=== PATIENT | female | born 1955 | race Two or more races ===

== ENCOUNTER 2024-05-11 04:34 | Inpatient (IN) | payer MEDICARE, OTHER ==
[2024-05-11] VITALS (30 sets, daily range): BP systolic 102–165; BP diastolic 48–110; PULSE 45–109; RESP 18–21; TEMP 93.7–98.1; O2SAT 94–100
[~2024-05-11] VITALS: Ht 162.6 cm; Wt 67.1 kg
[2024-05-11] MEDS: ETOMIDATE (2MG/ML) 20ML VIAL IV ONE ×2 (05:04→05:15)
[2024-05-11] MEDS: ROCURONIUM 10MG/ML 10ML VIAL IV ONE ×2 (05:04→05:17)
[2024-05-11] MEDS: PROPOFOL 100 ML IV ONE (05:04)
[2024-05-11] MEDS: DEXTROSE 50% SYRINGE 100 ML IV ONE (05:10)
--- NOTE | 2024-05-11 05:10 | ED.PDOC ---
Altered Mental Status HPI Comments 68-year-old female came to ER via EMS for altered level of consciousness. Per EMS, patient picked up at home, has history of dementia, episodes of sundowning, was noted to be altered, confused, twitching, agitated for the past 7 hours. Blood sugar noted to be 58, was given D10 water and it went to 241. Patient has no history of diabetes. Does have history of hypertension, dyslipidemia and seizures. Upon arrival at the ER, patient is still altered, nonverbal, continuously twitching, flailing at this time. 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: Pt Confused Family History Family History: Pt Confused Social History Smoker: Pt Confused Alcohol: Pt Confused Drugs: Pt Confused Lives In: Home Unable to Obtain due to: Altered Mental Status, Dementia Physical Exam General Appearance: Severe Distress, Other (Patient is unresponsive) HEENT: PERRL/EOMI Neck: Non-Tender Respiratory: Other (Crackles bilaterally) Cardiovascular: Tachycardia Breast Exam: Normal Gastrointestinal: Non Tender Genitalia: Deferred Pelvic: Deferred Rectal: Deferred Extremities: No calf tenderness, Normal capillary refill, Normal inspection, Normal range of motion, Non-tender, No pedal edema Neurologic: Other (Patient is unresponsive) Cerebellar Function: Unable to Test Reflexes: NOT DONE Skin: Cyanosis Lymphatic: No Adenopathy Was a procedure done? Was a procedure done?: Yes Sedation Sedation?: Yes Informed consent obtained: No Sedation start time: 05:15 Sedation end time: 05:45 Sedation total time: Patient is still sedated at this time Central Line Recorder of insertion practice: Observer Occupation of installer apprentice: Attending Physician Indication: Hypotension, Volume resuscitation, Suspected infection Room prepared for procedure: Yes Steam Hoist Operator performed hand hygien: Yes Maximal sterile barrier precau: Mask/Eye shield, Sterile gown, Cap, Sterlie gloves, Large sterlie drape Skin Preparation: Providine iodine Skin preparation completely dr: Yes Insertion site: Right, Femoral Central line catheter type: Tunneled- not dialysis Number of lumens: 3 Central line exchanged over a: Yes Antiseptic ointment applied to: Yes Post Assessment: Chest X-Ray Informed consent obtained: No Risks/benefits/alt described: No Intubation Indication: Altered Mental Status, Airway Protection Prep: Preoxygenation Pretreated with: Analgesia, Sedation Medicated with: Other (Etomidate, rocuronium) Intubation Approach: Orotracheal Intubation size: cm (8.0) Informed consent obtained: No Risks/benefits/alt described: No Differential Diagnosis (ALOC) Differential Diagnosis: Dehydration, Hypoglycemia, Encephalopathy, Seizure, CVA, Drug Overdose, ETOH Intoxication, Renal Failure X-Ray, Labs, Meds, VS Vital Signs Date Time Temp Pulse Resp B/P (MAP) Pulse Ox O2 Delivery O2 Flow Rate FiO2 05/11/24 04:35 96.1 110 19 159/91 (113) 94 Lab Test 05/11/24 05:26 Range/Units Urine Color Pending Urine Clarity Pending Urine pH Pending Urine Specific [place] Pending Urine Protein Pending Urine Ketones Pending Urine Blood Pending Urine Nitrite Pending Urine Bilirubin Pending Urine Urobilinogen Pending Urine Leukocyte Esterase Pending Urine RBC Pending Urine WBC Pending Urine Squamous Epithelial Cells Pending Urine Bacteria Pending Urine Glucose Pending Urine Opiates Screen Pending Urine Fentanyl Screen Pending Urine Barbiturates Screen Pending Urine Phencyclidine Screen Pending Urine Amphetamines Screen Pending Urine Benzodiazepines Screen Pending Urine Cocaine Screen Pending Urine Cannabinoids Screen Pending Time of 1ST Reevaluation: 05:00 Reevaluation 1ST: Unchanged Patient Education/Counseling: Diagnosis, Treatment Family Education/Counseling: No Family Present Departure 1 Departure Time of Disposition: 05:42 (Patient with severe altered mental status. She was not protecting her airway and was aspirating. Patient was intubated emergently in central line placed. Empirically cover patient with antibiotics. We will get a CT scan of her head admit patient to the ICU for further workup and expert consultation) Impression: Primary Impression: Altered mental status Qualified Codes: R41.0 - Disorientation, unspecified Additional Impression: Metabolic encephalopathy Disposition: ADMITTED INPATIENT Admit to: ICU Condition: Critical Critical Care Note Critical Care Time?: Yes (35 min-critical care time only) Critical care comment: Acute delirium Authorized and Performed by: Daphne Salazar MD Total critical care time: Approximately 38 minutes Due to a high probability of clinically significant, life threatening deterioration, the patient required my highest level of preparedness to intervene emergently and I personally spent this critical care time directly and personally managing the patient. This critical care time included obtaining a history; examining the patient; pulse oximetry; ordering and review of studies; arranging urgent treatment with development of a management plan; evaluation of patient's response to treatment; frequent reassessment; and, discussions with other providers. This critical care time was performed to assess and manage the high probability of imminent, life-threatening deterioration that could result in multi-organ failure. It was exclusive of separately billable procedures and treating other patients and teaching time. Please see my other sections and the rest of the note for further information on patient assessment and treatment. Stability Stability form required: No Heart Score Heart Score: Heart Score Response (Comments) Value History N/A 0 EKG N/A 0 Age N/A 0 Risk Factors N/A 0 Troponin N/A 0 Total 0 I personally scribed for DAPHNE SALAZAR MD ([email or web address]) on 05/11/24 at 05:10. Electronically submitted by Blaze Moya ([employer]). I personally scribed for DAPHNE SALAZAR MD ([email or web address]) on 05/11/24 at 05:21. Electronically submitted by Blaze Moya ([employer]). I personally scribed for DAPHNE SALAZAR MD ([email or web address]) on 05/11/24 at 05:35. Electronically submitted by Blaze Moya ([employer]). DAPHNE SALAZAR MD May 11, 2024 05:10
[2024-05-11] MEDS: SODIUM CHLORIDE 0.9% 2,300 ML IV ONE (05:15)
[2024-05-11] MEDS: DEXTROSE (50%) 50ML SYRG IV ONE (05:15)
[2024-05-11] MEDS: PROPOFOL 100 ML IV SCH (05:15)
[2024-05-11 05:35] LABS: Urine Bacteria None Seen /hpf (None Seen)
[2024-05-11] MEDS: VANCOMYCIN 1GM/250ML KIT 200 ML IV ONE (05:45)
[2024-05-11] MEDS: NOREPINEPHRINE 8 MG/250ML KIT 250 ML IV SCH (05:45)
[2024-05-11] MEDS: NOREPINEPHRINE 8 MG/250ML KIT 250 ML IV ONE (05:49)
[2024-05-11 05:50] LABS: Basophils # (auto) 0 10 ^3/uL (0-0.2); Basophils % (auto) 0.3 % (0.0-2.0); Eosinophils # (auto) 0 10 ^3/uL (0-0.8); Eosinophils % (auto) 0.7 % (0.0-7.0); Hematocrit 30.3 % (36.0-46.0); Hemoglobin 9.8 g/dL (12.2-16.2); Lymphocytes # (auto) 0.5 10 ^3/uL (0.4-5.4); Lymphocytes % (auto) 8.1 % (10.0-50.0); Mean Corpuscular Hgb Conc. 32.5 g/dL (32.0-36.0); Mean Corpuscular Volume 95.5 fL (80.0-100.0); Monocytes # (auto) 0.4 10 ^3/uL (0-1.3); Monocytes % (auto) 7.2 % (0.0-12.0); Neutrophils # (auto) 4.8 10 ^3/uL (1.6-8.6); Neutrophils % (auto) 83.7 % (37.0-80.0); Nucleated Red Blood Cells % 0.7 %; Platelet Count (auto) 91 10^3/uL (140-450); Red Blood Cells 3.17 10^6/uL (4.0-5.20); Red Cell Distribution Width 16.8 % (11.8-14.3); White Blood Cell 5.8 10^3/uL (4.4-10.8)
[2024-05-11 05:53] LABS: Barbiturate Scree,Urine Neg (NEGATIVE)
--- NOTE | 2024-05-11 05:53 | DVH ---
CHEST RADIOGRAPH Indication: Post Intubation ETT/OG placement Technique: Single frontal view of the chest was obtained COMPARISON: None FINDINGS: Lines and Tubes: Endotracheal tube is above the neftali. The nasogastric tube extends below the diaphr agm with its tip outside field of view. Lungs: Left upper lobe masslike opacity with left hilar prominence and atelectasis or pneumonia in th e left lower lobe. Pleura: Probable small left pleural effusion. No pneumothorax. Cardiomediastinal contours: Leftward mediastinal shift. Bones: Unremarkable IMPRESSION: 1. Left upper lobe masslike opacity with left hilar prominence and atelectasis or pneumonia in the le ft lower lobe. CT thorax is suggested.
[2024-05-11 05:55] LABS: Urine Blood Negative /uL (Negative); Urine Clarity Clear (Clear); Urine Color Yellow (Yellow); Urine Protein, UAD 1+ (Negative); Urine Squamous Epithelial Cell FEW /hpf (<5); Urine Urobilinogen Normal (Negative); Urine WBC 6 /hpf (0 - 5)
[2024-05-11] MEDS: IOHEXOL 300 MG/ML 100ML BOTTLE IJ ONE (05:57)
[2024-05-11 05:58] LABS: Amphetamine Screen, Urine Neg (NEGATIVE); Benzodiazephine Screen, Urine Neg (NEGATIVE); Cannabinoid Screen, Urine Neg (NEGATIVE); Cocaine Screen, Urine Neg (NEGATIVE); Opiate Scree,Urine Neg (NEGATIVE); Phencyclidine Screen, Urine Neg (NEGATIVE)
[2024-05-11 06:08] LABS: Anion Gap 9 (5-15); Aspartate Aminotransferase 37 U/L (13-40); BUN/Creatinine Ratio 16.7 (10.0-20.0); Blood Urea Nitrogen 18 mg/dL (9-23); Calcium 9.7 mg/dL (8.7-10.4); Carbon Dioxide 26 mmol/L (20-31); Lipase 24 U/L (12-53); Potassium 3.6 mmol/L (3.5-5.1); Sodium 143 mmol/L (136-145)
[2024-05-11 06:09] LABS: Albumin 3.4 g/dL (3.2-4.8); Bilirubin, Total 0.5 mg/dL (0.2-1.0)
[2024-05-11 06:17] LABS: Alanine Aminotransferase 53 U/L (7-40); Alkaline Phosphatase 131 U/L (46-116); Chloride 108 mmol/L (98-107); Glucose 150 mg/dL (74-106); Total Protein 5.7 g/dL (5.7-8.2)
--- NOTE | 2024-05-11 06:19 | DVH ---
EXAM: CT HEAD WITHOUT CONTRAST INDICATION: ams TECHNIQUE: CT of the head without intravenous contrast. Radiation Dose : 1. Head: CT Dose: CTDI volume is 53 mGy. Dose-length product is 932 mGy*cm The dose indicators for CT are the volume Computed Tomography (CT) Dose Index (CTDIvol) and the Dose Length Product (DLP), and are measured in units of mGy and mGy-cm, respectively. These indicators are not patient dose, but values generated from the CT scanner acquisition factors. The report includes radiation exposure data for exposures received during this examination. COMPARISON: None FINDINGS: There is no evidence of acute intracranial hemorrhage, extra-axial collection, mass effect, midline s hift, herniation or hydrocephalus. The ventricles, sulci and cisterns are age appropriate. The caballero-white differentiation is intact. The visualized paranasal sinuses and mastoid air cells are clear. The surrounding soft tissues and osseous structures are unremarkable. IMPRESSION: 1. No acute intracranial abnormality. Radiation optimization: All CT scans at this facility use at least one of these dose optimization jeffrey hniques: automated exposure control mA and/or kV adjustment per patient size (includes targeted exam s where dose is matched to clinical indication) or iterative reconstruction.
--- NOTE | 2024-05-11 06:25 | DVH ---
Exam: CT CT CHEST/AB/PL W CON- IV ONLY History: unresponsive, intubated on pressors Comparison Study: None available at time of dictation. Technique: Multidetector spiral CT of the chest, abdomen and pelvis was performed from lower neck to pubic symphysis. Intravenous contrast was administered during this examination. Portal venous imagi ng was obtained. Axial, coronal and sagittal multiplanar reformats were performed by the technologist on a separate workstation. Radiation Dose : 1. Chest/Abdomen/Pelvis: CTDIvol 12.9 mGy, DLP 816 mGy*cm. Findings: Lower neck: Normal thyroid. Lungs: Multifocal airspace disease with lobar pneumonia in the left lower lobe and lingula with moder ate bilateral pleural effusions. Endotracheal tube is above the neftali. Heart/Vascular Structures: Heart size is in the upper limit of normal. No pericardial effusion. Lymph Nodes: No adenopathy Pleura: Moderate bilateral pleural effusions. Liver: The liver is normal in size. 1.9 cm hypodensity in the hepatic segment 8, probably a cyst. No rmal hepatic vascular enhancement. Gallbladder and Biliary Tree: Unremarkable Spleen: Unremarkable Pancreas: The pancreas is normal in appearance without focal lesions or abnormal enhancement. Adrenal Glands: Unremarkable Kidneys: Kidneys demonstrate normal symmetric enhancement without focal lesions, calculi or hydroneph rosis. Bladder: Collapsed around the Shaw catheter balloon. Bowel: The stomach is grossly normal in appearance. Small bowel and colon are normal in caliber and d istribution. The appendix is not visualized. Colonic diverticulosis. Ascites: Absent Lymphadenopathy: No mesenteric, retroperitoneal or periportal lymphadenopathy. Abdominal Wall and Mesentery: Unremarkable. Vasculature: The visualized abdominal aorta is normal in size and caliber. Abdominal and pelvic vess els demonstrate normal enhancement. Pelvic Organs: Unremarkable Musculoskeletal: Advanced degenerative change of the bilateral shoulder joints. Right femoral central catheter extends to the right common iliac vein. IMPRESSION: 1. Multifocal pneumonia, with lobar pneumonia in the left lower lobe and lingula with moderate bilate ral pleural effusions. 2. Probably simple cyst in the hepatic segment 8, follow-up is suggested. 3. Colonic diverticulosis.
[2024-05-11 06:57] LABS: Lactic Acid w/Reflex 2.4 mmol/L (0.4-2.0)
[2024-05-11 07:09] LABS: Base Excess 0.4 mmol/L (-2.0-3.0)
[2024-05-11 07:09] LABS: Blood Alcohol < 3.0 mg/dL (<10)
--- NOTE | 2024-05-11 07:11 | ECG ---
[facility] Test Date: 2024-05-11 Test Time: 07:04:06 Pat Name: CRIS MILLER Department: ER Room: [address] [place] [address] Gender: F Director Of Product Design: RAQUEL : 1955 Requested By: DAPHNE DIEZ Order Number: [id number] Reading MD: Pedro Morgan Measurements Intervals [place] Rate: 103 P: 86 [place]: 173 QRS: 83 QRSD: 102 T: -78 QT: 323 QTc: 423 Interpretive Statements Sinus tachycardia Borderline right axis deviation LVH with secondary repolarization abnormality Electronically Signed On 05-11-2024 16:11:31 PST by Pedro Morgan Please click the below link to view image of tracing.
[2024-05-11] MEDS: AZITHROMYCIN 500MG/ 250ML 250 ML IV ONE (07:41)
[2024-05-11] MEDS: MIDAZOLAM DRIP 50 mg/50mL 50 ML IV SCH (07:51)
[2024-05-11] MEDS: fentaNYL Drip 2500mCg/250mlNS 250 ML IV SCH (08:15)
[2024-05-11] MEDS: CEFEPIME 2GM/50ML NS 50 ML IV ONE (09:42)
[2024-05-11] MEDS: SODIUM CHLORIDE 0.9% 1,000 ML IV SCH (12:45)
[2024-05-11] MEDS ORDERED: VANCOMYCIN PER PHARMACY 0 MG IV SCH (12:45)
--- NOTE | 2024-05-11 12:51 | DVHHP2 ---
History of Present Illness Reason for Visit: aloc History of Present Illness This 68-year-old female is seen in the emergency department intubated, medical history obtained from nursing staff and medical record. Per EMS, the patient was noted to be altered, confused, and twitching for the past few hours prior to arrival. During that time blood sugar were noted to be 58 for which she was given D10 with BS improvement. CT chest reveals multifocal pneumonia. Currently on dual vasopressors for BP support. Past medical history of hypertension, hyperlipidemia, CAD, seizures, and dementia. Past Medical History As stated in HPI Past Surgical History Unknown Family History Unknown Past Social History Unknown Review of Systems Review of Systems ROS see HPI Allergies: Coded Allergies: NO KNOWN ALLERGIES (Unverified , 05/11/24) Medications Current Medications Medications Dose Ordered Sig/Johan Route Start Time Stop Time Status Last Admin Dose Admin Propofol 100 ml @ 2.313 mls/ hr Q24H IV 05/11/24 05:00 05/11/24 05:15 2.313 MLS/HR Midazolam HCl 50 ml @ 1 mls/hr Q24H IV 05/11/24 05:00 05/11/24 07:51 1 MLS/HR Fentanyl Citrate 250 ml @ 2.5 mls/hr Q24H IV 05/11/24 05:00 05/11/24 08:15 2.5 MLS/HR Norepinephrine Bitartrate 250 ml @ 3.75 mls/hr Q24H IV 05/11/24 06:00 05/11/24 05:45 3.75 MLS/HR Exam Vital Signs Vital Signs Date Time Temp Pulse Resp B/P (MAP) Pulse Ox O2 Delivery O2 Flow Rate FiO2 05/11/24 12:15 113/50 05/11/24 11:23 57 18 100 40 05/11/24 09:37 Mechanical Ventilator+ 05/11/24 09:30 96.1 96.1 05/11/24 05:15 0 General Appearance: Alert, Other (intubated) Respiratory: Other (Diminished lung sounds, intubated) Cardiovascular: Other (Sinus rhythm) Abdominal: Normal bowel sounds, Soft, No tenderness Extremities: No clubbing, No cyanosis, No edema Skin: No rashes, No breakdown, No significant lesion Labs/Xrays Labs Test 05/11/24 08:15 1/19/25 07:26 05/11/24 07:02 05/11/24 05:30 Range/Units Lactic Acid Level 1.1 0.4-2.0 mmol/L Troponin I High Sensitivity 23 </=34 ng/L POC Glucose 114 H 70-106 mg/dl Blood Gas Specimen Type Arterial Blood Gas Sample Site Right radial Blood Gas Patient Temperature 37.0 Arterial Blood Date Drawn [id number] Arterial Blood pH 7.413 7.350-7.450 Arterial Blood Partial Pressure CO2 40.0 32.0-45.0 mmHg Arterial Blood Partial Pressure O2 293.3 H 83.0-108.0 mmHg Arterial Blood HCO3 25.0 21.0-28.0 mmol/L Arterial Blood Oxygen Saturation 99.6 H 94.0-98.0 % Arterial Blood Base Excess 0.4 -2.0-3.0 mmol/L Arterial Blood Oxyhemoglobin 98.5 H 94.0-98.0 % Arterial Blood Carboxyhemoglobin 0.4 L 0.5-1.5 % Arterial Blood Methemoglobin 0.7 0.0-1.5 % Yefri Test Modified Blood Gas Total Hemoglobin 10.70 L 12.0-16.0 g/dL Blood Gas Set Respiration Rate 18.0 Blood Gas Modality Vent - ac FiO2 % 100.0 Blood Gas Tidal Volume 450.0 Blood Gas PEEP or CPAP 5.0 White Blood Count 5.8 4.4-10.8 10^3/uL Red Blood Count 3.17 L 4.0-5.20 10^6/uL Hemoglobin 9.8 L 12.2-16.2 g/dL Hematocrit 30.3 L 36.0-46.0 % Mean Corpuscular Volume 95.5 80.0-100.0 fL Mean Corpuscular Hemoglobin 31.0 28.0-32.0 pg Mean Corpuscular Hemoglobin Concent 32.5 32.0-36.0 g/dL Red Cell Distribution Width 16.8 H 11.8-14.3 % Platelet Count 91 L 140-450 10^3/uL Mean Platelet Volume 9.0 6.9-10.8 fL Neutrophils (%) (Auto) 83.7 H 37.0-80.0 % Lymphocytes (%) (Auto) 8.1 L 10.0-50.0 % Monocytes (%) (Auto) 7.2 0.0-12.0 % Eosinophils (%) (Auto) 0.7 0.0-7.0 % Basophils (%) (Auto) 0.3 0.0-2.0 % Neutrophils # (Auto) 4.8 1.6-8.6 10 ^3/uL Lymphocytes # (Auto) 0.5 0.4-5.4 10 ^3/uL Monocytes # (Auto) 0.4 0-1.3 10 ^3/uL Eosinophils # (Auto) 0 0-0.8 10 ^3/uL Basophils # (Auto) 0 0-0.2 10 ^3/uL Nucleated Red Blood Cells 0.7 % Sodium Level 143 136-145 mmol/L Potassium Level 3.6 3.5-5.1 mmol/L Chloride Level 108 H 98-107 mmol/L Carbon Dioxide Level 26 20-31 mmol/L Anion Gap 9 5-15 Blood Urea Nitrogen 18 9-23 mg/dL Creatinine 1.08 H 0.550-1.02 mg/dL Glomerular Filtration Rate Calc 56 >90 mL/min BUN/Creatinine Ratio 16.7 10.0-20.0 Serum Glucose 150 H 74-106 mg/dL Calcium Level 9.7 8.7-10.4 mg/dL Total Bilirubin 0.5 0.2-1.0 mg/dL Aspartate Amino Transferase (AST) 37 13-40 U/L Alanine Aminotransferase (ALT) 53 H 7-40 U/L Alkaline Phosphatase 131 H 46-116 U/L B-Type Natriuretic Peptide 223.67 0-100 pg/mL Total Protein 5.7 5.7-8.2 g/dL Albumin 3.4 3.2-4.8 g/dL Lipase 24 12-53 U/L Plasma/Serum Blood Alcohol < 3.0 <10 mg/dL Test 05/11/24 05:26 Range/Units Urine Color Yellow Yellow Urine Clarity Clear Clear Urine pH 8.0 5.0-9.0 Urine Specific [place] 1.020 1.001-1.035 Urine Protein 1+ H Negative Urine Ketones Negative Negative Urine Blood Negative Negative /uL Urine Nitrite Negative Negative Urine Bilirubin Negative Negative Urine Urobilinogen Normal Negative mg/dL Urine Leukocyte Esterase Negative Negative /uL Urine RBC 1 0 - 4 /hpf Urine WBC 6 0 - 5 /hpf Urine Squamous Epithelial Cells Few <5 /hpf Urine Bacteria None seen None Seen /hpf Urine Glucose Normal Normal mg/dL Urine Opiates Screen Neg NEGATIVE Urine Fentanyl Screen Neg NEGATIVE Urine Barbiturates Screen Neg NEGATIVE Urine Phencyclidine Screen Neg NEGATIVE Urine Amphetamines Screen Neg NEGATIVE Urine Benzodiazepines Screen Neg NEGATIVE Urine Cocaine Screen Neg NEGATIVE Urine Cannabinoids Screen Neg NEGATIVE PROCEDURE(s): CAPIV - CT CHEST/AB/PL W CON- IV ONLY REASON: unresponsive, intubated on pressors ORDER NUMBER(s): [id number], ACCESSION NUMBER(s): [id number] Exam: CT CT CHEST/AB/PL W CON- IV ONLY History: unresponsive, intubated on pressors Comparison Study: None available at time of dictation. Technique: Multidetector spiral CT of the chest, abdomen and pelvis was performed from lower neck to pubic symphysis. Intravenous contrast was administered during this examination. Portal venous imaging was obtained. Axial, coronal and sagittal multiplanar reformats were performed by the technologist on a separate workstation. Radiation Dose : 1. Chest/Abdomen/Pelvis: CTDIvol 12.9 mGy, DLP 816 mGy*cm. Findings: Lower neck: Normal thyroid. Lungs: Multifocal airspace disease with lobar pneumonia in the left lower lobe and lingula with moderate bilateral pleural effusions. Endotracheal tube is above the neftali. Heart/Vascular Structures: Heart size is in the upper limit of normal. No pericardial effusion. Lymph Nodes: No adenopathy Pleura: Moderate bilateral pleural effusions. Liver: The liver is normal in size. 1.9 cm hypodensity in the hepatic segment 8, probably a cyst. Normal hepatic vascular enhancement. Gallbladder and Biliary Tree: Unremarkable Spleen: Unremarkable Pancreas: The pancreas is normal in appearance without focal lesions or abnormal enhancement. Adrenal Glands: Unremarkable Kidneys: Kidneys demonstrate normal symmetric enhancement without focal lesions, calculi or hydronephrosis. Bladder: Collapsed around the Shaw catheter balloon. Bowel: The stomach is grossly normal in appearance. Small bowel and colon are normal in caliber and distribution. The appendix is not visualized. Colonic diverticulosis. Ascites: Absent Lymphadenopathy: No mesenteric, retroperitoneal or periportal lymphadenopathy. Abdominal Wall and Mesentery: Unremarkable. Vasculature: The visualized abdominal aorta is normal in size and caliber. Abdominal and pelvic vessels demonstrate normal enhancement. Pelvic Organs: Unremarkable Musculoskeletal: Advanced degenerative change of the bilateral shoulder joints. Right femoral central catheter extends to the right common iliac vein. IMPRESSION: 1. Multifocal pneumonia, with lobar pneumonia in the left lower lobe and lingula with moderate bilateral pleural effusions. 2. Probably simple cyst in the hepatic segment 8, follow-up is suggested. 3. Colonic diverticulosis. Assessment/Plan Assessment/Plan # sepsis with shock # multifocal pneumonia Admit to ICU Cefepime and vanco IV fluid resuscitation Titrate vasopressors to keep SBP >90 mmHg Pancultures Chest x-ray in a.m. # acute metabolic encephalopathy # dementia CT head reviewed # Acute respiratory failure Continue with vent setting, titrate FI02 to keep O2 Sat >92% Med neb # hypertension hold antihypertensive meds # hyperlipidemia Check lipid panel # CAD Metoprolol- hold # history of seizures Seizure precautions DVT and PUD prophylaxis Plan discussed with: Patient My Orders Orders - KERI CRUZ Procedure Category Date Status Time Admit ADMIT 05/11/24 Verified 12:40 Code Status CODE 05/11/24 Verified 12:40 0.9% Ns 1000 Ml PHA 05/11/24 Verified 12:45 Enoxaparin Sodium PHA 05/12/24 Verified (Lovenox) 10:00 Fall Risk Precautions [facility] 05/11/[address] 12:40 Complete Blood Count LAB 05/12/24 Verified 04:00 Comprehensive LAB 05/12/24 Verified Metabolic Panel 04:00 Condition: Serious IGNACIO 05/11/24 Verified 12:40 Cefepime 1 Gm PHA 05/11/24 Verified 22:00 Vancomycin Per PHA 05/11/24 Verified Pharmacy 12:45 Date of Service: May 11, 2024 Billing Provider: KERI CRUZ Common Visit Codes: [id number] INP/OBS CARE (HIGH) KERI CRUZ May 11, 2024 12:51
--- NOTE | 2024-05-11 14:31 | DVHINCON2 ---
Date Seen: May 11, 2024 Referring Physician SANDRA Garcia Reason for Consultation Bradycardia History of Present Illness This is a 68-year-old female who presented to the emergency room via EMS with a chief complaint of an altered level of consciousness. At time of assessment the patient was found mechanically ventilated with any% FiO2, chemically sedated, and on a single vasopressor. Information obtained from records which indicate the patient developed ALOC for approximately 7 hours and found with a blood sugar level of 58 ng/dL for which she was medicated with D10. Cardiology consulted in the setting of bradycardia with a heart rate in the 30s bpm. She underwent a 12 lead electrocardiogram revealing a sinus bradycardia rhythm without evidence of atrioventricular blocks or sinus pauses. Home medications includes metoprolol tartrate 25 mg b.i.d.. She was also found to be hypothermic with a rectal temperature of 88 F. significant medical history includes unspecified myocardial infarction, hypertension, dyslipidemia, chronic kidney disease, dementia, and seizure activity. Past Medical History Past medical history reviewed. No other significant than mentioned above. Past Surgical History Unknown past medical history. Family History Unknown family history. Social History Unknown social history. Allergies: Coded Allergies: NO KNOWN ALLERGIES (Unverified , 05/11/24) Home Meds Home medications reviewed. Current Medications Current Medications Medications (Trade) Dose Ordered Sig/Johan Route PRN Reason Start Time Stop Time Status Last Admin Propofol 100 ml @ 2.313 mls/ hr Q24H IV 05/11/24 05:00 05/11/24 05:15 Midazolam HCl 50 ml @ 1 mls/hr Q24H IV 05/11/24 05:00 05/11/24 07:51 Fentanyl Citrate 250 ml @ 2.5 mls/hr Q24H IV 05/11/24 05:00 05/11/24 08:15 Norepinephrine Bitartrate 250 ml @ 3.75 mls/hr Q24H IV 05/11/24 06:00 05/11/24 05:45 Sodium Chloride 1,000 ml @ 75 mls/hr [id number] IV 05/11/24 12:45 Enoxaparin Sodium (Lovenox) 40 mg DAILY SC 05/12/24 10:00 Future Hold Cefepime HCl 50 ml @ 12.5 mls/hr Q12HR IV 05/11/24 22:00 Vancomycin HCl 0 ml @ 0 mls/hr UD IV 05/11/24 12:45 UNV Review of Systems Constitutional: No symptom reported Ears, Nose, & Throat: No symptom reported Eyes: No symptom reported Neurological: ALOC Pulmonary/Respiratory: No symptom reported Cardiovascular: No symptom reported Gastrointestinal: No symptom reported Genitourinary: No symptom reported Musculoskeletal: No symptom reported Skin: No symptom reported Psychiatric: No symptom reported Endocrine: No symptom reported Hemotologic/Lymphatic: No symptom reported Vital Signs Vital Signs Date Time Temp Pulse Resp B/P (MAP) Pulse Ox O2 Delivery O2 Flow Rate FiO2 05/11/24 13:15 46 18 126/56 (79) 100 30 05/11/24 13:02 96.1 96.1 05/11/24 09:37 Mechanical Ventilator+ 05/11/24 05:15 0 Physical Exam General Appearance: Withdrawn. Chemically sedated. Mechanically ventilated 30 % FiO2 Head Exam: Normal inspection Neck Exam: Normal inspection. Normal alignment Pulmonary/Respiratory: Clear bilateral breath sounds Cardiovascular/Chest: Regular rate and rhythm. S1, S2. Sinus bradycardia. No murmurs. Peripheral Pulses: 2+ Radial (R). 2+ Radial (L). 2+ Pedal (R). 2+ Pedal (L) Abdominal Exam: Normal bowel sounds. Soft. Ankle Exam: Negative ankle edema Lower extremities: Negative lower extremity edema Neuro/Mental Status: Chemically sedated. Withdrawn Thoughts/Psych: Unable to assess at this time Appearance: In no acute distress Skin Exam: Normal inspection. Normal color. Warm. Dry Labs/Diagnostic Data Labs Test 05/11/24 08:15 05/11/24 07:26 05/11/24 07:02 05/11/24 05:30 Range/Units Lactic Acid Level 1.1 0.4-2.0 mmol/L Troponin I High Sensitivity 23 </=34 ng/L POC Glucose 114 H 70-106 mg/dl Blood Gas Specimen Type Arterial Blood Gas Sample Site Right radial Blood Gas Patient Temperature 37.0 Arterial Blood Date Drawn [id number] Arterial Blood pH 7.413 7.350-7.450 Arterial Blood Partial Pressure CO2 40.0 32.0-45.0 mmHg Arterial Blood Partial Pressure O2 293.3 H 83.0-108.0 mmHg Arterial Blood HCO3 25.0 21.0-28.0 mmol/L Arterial Blood Oxygen Saturation 99.6 H 94.0-98.0 % Arterial Blood Base Excess 0.4 -2.0-3.0 mmol/L Arterial Blood Oxyhemoglobin 98.5 H 94.0-98.0 % Arterial Blood Carboxyhemoglobin 0.4 L 0.5-1.5 % Arterial Blood Methemoglobin 0.7 0.0-1.5 % Yefri Test Modified Blood Gas Total Hemoglobin 10.70 L 12.0-16.0 g/dL Blood Gas Set Respiration Rate 18.0 Blood Gas Modality Vent - ac FiO2 % 100.0 Blood Gas Tidal Volume 450.0 Blood Gas PEEP or CPAP 5.0 White Blood Count 5.8 4.4-10.8 10^3/uL Red Blood Count 3.17 L 4.0-5.20 10^6/uL Hemoglobin 9.8 L 12.2-16.2 g/dL Hematocrit 30.3 L 36.0-46.0 % Mean Corpuscular Volume 95.5 80.0-100.0 fL Mean Corpuscular Hemoglobin 31.0 28.0-32.0 pg Mean Corpuscular Hemoglobin Concent 32.5 32.0-36.0 g/dL Red Cell Distribution Width 16.8 H 11.8-14.3 % Platelet Count 91 L 140-450 10^3/uL Mean Platelet Volume 9.0 6.9-10.8 fL Neutrophils (%) (Auto) 83.7 H 37.0-80.0 % Lymphocytes (%) (Auto) 8.1 L 10.0-50.0 % Monocytes (%) (Auto) 7.2 0.0-12.0 % Eosinophils (%) (Auto) 0.7 0.0-7.0 % Basophils (%) (Auto) 0.3 0.0-2.0 % Neutrophils # (Auto) 4.8 1.6-8.6 10 ^3/uL Lymphocytes # (Auto) 0.5 0.4-5.4 10 ^3/uL Monocytes # (Auto) 0.4 0-1.3 10 ^3/uL Eosinophils # (Auto) 0 0-0.8 10 ^3/uL Basophils # (Auto) 0 0-0.2 10 ^3/uL Nucleated Red Blood Cells 0.7 % Sodium Level 143 136-145 mmol/L Potassium Level 3.6 3.5-5.1 mmol/L Chloride Level 108 H 98-107 mmol/L Carbon Dioxide Level 26 20-31 mmol/L Anion Gap 9 5-15 Blood Urea Nitrogen 18 9-23 mg/dL Creatinine 1.08 H 0.550-1.02 mg/dL Glomerular Filtration Rate Calc 56 >90 mL/min BUN/Creatinine Ratio 16.7 10.0-20.0 Serum Glucose 150 H 74-106 mg/dL Calcium Level 9.7 8.7-10.4 mg/dL Total Bilirubin 0.5 0.2-1.0 mg/dL Aspartate Amino Transferase (AST) 37 13-40 U/L Alanine Aminotransferase (ALT) 53 H 7-40 U/L Alkaline Phosphatase 131 H 46-116 U/L B-Type Natriuretic Peptide 223.67 0-100 pg/mL Total Protein 5.7 5.7-8.2 g/dL Albumin 3.4 3.2-4.8 g/dL Lipase 24 12-53 U/L Plasma/Serum Blood Alcohol < 3.0 <10 mg/dL Test 05/11/24 05:26 Range/Units Urine Color Yellow Yellow Urine Clarity Clear Clear Urine pH 8.0 5.0-9.0 Urine Specific [place] 1.020 1.001-1.035 Urine Protein 1+ H Negative Urine Ketones Negative Negative Urine Blood Negative Negative /uL Urine Nitrite Negative Negative Urine Bilirubin Negative Negative Urine Urobilinogen Normal Negative mg/dL Urine Leukocyte Esterase Negative Negative /uL Urine RBC 1 0 - 4 /hpf Urine WBC 6 0 - 5 /hpf Urine Squamous Epithelial Cells Few <5 /hpf Urine Bacteria None seen None Seen /hpf Urine Glucose Normal Normal mg/dL Urine Opiates Screen Neg NEGATIVE Urine Fentanyl Screen Neg NEGATIVE Urine Barbiturates Screen Neg NEGATIVE Urine Phencyclidine Screen Neg NEGATIVE Urine Amphetamines Screen Neg NEGATIVE Urine Benzodiazepines Screen Neg NEGATIVE Urine Cocaine Screen Neg NEGATIVE Urine Cannabinoids Screen Neg NEGATIVE Assessment Septic shock with multifocal pneumonia Hypothermia induced bradycardia HX of hypertension, on metoprolol Hypomagnesemia Thrombocytopenia Dyslipidemia Seizure activity Dementia Plan/Recommendation (Dr. Mckay) The patient presents with likely beta-negra/hypothermia induced bradycardia. She underwent a 12 lead electrocardiogram revealing a sinus bradycardia rhythm without evidence of atrioventricular blocks or sinus pauses. Continue with glucagon therapy and Elayne Hugger Management for temperature control. Avoid AV juarez blocking agents. Initiate low-dose Dopamine drip for hemodynamic support. Echocardiogram revealed a LVEF of 50% with grade 1 diastolic dysfunction. The re is no further cardiac workup indicated at this time. Kindly call if you need to re-consult. Thank you for allowing us to participate in this patient's care. Critical care time: 35 min. This medical document was created using an knowNormal medical record system with voice recognition software and computerized dictation system. Although this document has been carefully reviewed, there might still be some phonetic and typographical errors. Occasional wrong-word or ``sound-alike substitutions may have occurred due to the inherent limitations of voice recognition software. These areas are purely typographical due to imperfections of the software programs and do not reflect any compromise in the patient's medical care. Please read the chart carefully and recognize, using context, where these substitutions have occurred. Plan discussed with: Other NYHA Physical activity limitations: NA Date of Service: May 11, 2024 Billing Provider: SHAUN CORDOVA Cardiology Common Codes: 75285-[id number] CARE 30-74 MIN SHAUN CORDOVA May 11, 2024 14:31
--- NOTE | 2024-05-11 15:02 | DVHSR ---
APPROVED REPORT EXAM: Two-dimensional and M-mode echocardiogram with Doppler and color Doppler. Blood Pressure: 126/56 mmHg INDICATION CHANGE IN CARDIAC STATUS RISK FACTORS Height: 64, Weight: 170 DIMENSIONS LVDd4.7 (3.8-5.7cm)LA (2D)4.2 (1.9-4.0cm)Aortic Root2.9 (2.0-3.7cm) LVDs3.3 (2.5-4.0cm)LA (MM) (1.9-4.0cm)Aortic Cusp Exc1.5 (1.5-2.0cm) EF (%) 55.0 (55-70%)Rt. Atrium3.9 (1.9-4.0cm)Asc. Aorta cm IVSd0.9 (0.7-1.1cm)RV (D) (1.8-2.4cm) PWd1.3 (0.7-1.1cm) Mitral Valve MitralMitral Stenosis E wave0.79m/sMV Mean GR.mmHg A wave0.75m/sMV Peak GR.65mmHg E/A ratio1.12D MVAcm2 DECEL [id number] 1/2 [id number] IVRTmsDop MVA2.43cm2 Aortic Valve Aortic ValveAortic Stenosis V10.94m/Tracie Mean GR.3mmHg V21.39m/Tracie Peak GR.8mmHg Pulmonic Valve V20.72m/s Tricuspid Valve TR Velocity2.33m/s [id number] Conclusion lvef 50% by visual estimate grade 1 diastolic dysfunction normal rv function, mild enlargement left atrium moderate enlarged mild mitral regurg no severe valve abnormalities noted
[2024-05-11 15:06] LABS: Magnesium 1.4 mg/dL (1.6-2.6)
[2024-05-11] MEDS: MAGNESIUM SULFATE 1GM/100ML 100 ML IV SCH (15:57)
[2024-05-11] MEDS: GLUCAGON EMERG KIT 1mg/1ml IV ONE (15:58)
[2024-05-11] MEDS: DOPamine 1600MCG/ML D5W 250 ML IV SCH (16:59)
[2024-05-11] MEDS: CEFEPIME 1GM/ 50ML 50 ML IV SCH (21:13)
--- NOTE | 2024-05-11 22:59 | DVHINCON2 ---
Date of service: May 11, 2024 Referring Physician FAMILIA Lopez Reason for Consultation Acute hypoxic respiratory failure requiring mechanical ventilator, pneumonia, pleural effusion History of Present Illness This 68-year-old woman with past medical history of hypertension, hyperlipidemia , CAD, seizures, and dementia presents today to the emergency department intubated. Medical history obtained from nursing staff and medical record. Per EMS, the patient was noted to be altered, confused, and twitching for the past few hours prior to arrival. During that time blood sugar were noted to be 58, for which she was given D10 with improvement of blood glucose. CT chest reveals multifocal pneumonia. Currently on dual vasopressors for BP support. Patient was admitted for further care and pulmonary consultation is requested for evaluation and management due to the above findings. Review of Systems: Unable to obtain d/t intubated status. Past Medical History: Hypertension, hyperlipidemia, CAD, seizures, and dementia. Past Surgical History: Unknown Medications: Reviewed. Allergies: No known drug allergies. Family History: Unknown. Social History: Unknown. Allergies: Coded Allergies: NO KNOWN ALLERGIES (Unverified , 05/11/24) Current Medications Current Medications Medications (Trade) Dose Ordered Sig/Johan Route PRN Reason Start Time Stop Time Status Last Admin Propofol 100 ml @ 2.313 mls/ hr Q24H IV 05/11/24 05:00 05/11/24 05:15 Midazolam HCl 50 ml @ 1 mls/hr Q24H IV 05/11/24 05:00 05/11/24 07:51 Fentanyl Citrate 250 ml @ 2.5 mls/hr Q24H IV 05/11/24 05:00 05/11/24 08:15 Norepinephrine Bitartrate 250 ml @ 3.75 mls/hr Q24H IV 05/11/24 06:00 05/11/24 05:45 Sodium Chloride 1,000 ml @ 75 mls/hr [id number] IV 05/11/24 12:45 05/11/24 12:45 Enoxaparin Sodium (Lovenox) 40 mg DAILY SC 05/12/24 10:00 Future Hold Cefepime HCl 50 ml @ 12.5 mls/hr Q12HR IV 05/11/24 22:00 05/11/24 21:13 Vancomycin HCl 0 ml @ 0 mls/hr UD IV 05/11/24 12:45 Dopamine HCl/ Dextrose 250 ml @ 7.238 mls/ hr Q24H IV 05/11/24 14:45 05/11/24 16:59 Magnesium Sulfate/ Dextrose 100 ml @ 100 mls/hr Q1HR IV 05/11/24 16:00 05/11/24 17:59 DC 05/11/24 17:28 Vital Signs Vital Signs Date Time Temp Pulse Resp B/P (MAP) Pulse Ox O2 Delivery O2 Flow Rate FiO2 05/11/24 22:00 97 Mechanical Ventilator+ 30 30 05/11/24 22:00 78 05/11/24 21:50 18 105/53 (70) 05/11/24 20:00 94.5 94.5 05/11/24 05:15 0 Physical Exam Gen.: Patient lying in bed in medical ICU. Sedated, intubated on mechanical ventilator. Head: Normocephalic, atraumatic. Eyes: PERRLA. Ears: Normal external anatomy. Throat: Endotracheal tube and orogastric tube in place. Neck: Supple, trachea midline. Chest: Transmitted breath sounds bilaterally. Decreased air entry bilaterally. No wheezing. Bibasilar crackles. Cardiovascular: Positive S1, positive S2. Regular rate and rhythm. Abdomen: Positive bowel sounds in all 4 quadrants. Soft, nontender, nondistended. : Shaw in place. Normal external genitalia. Rectal: Deferred. Skin: Warm, dry. Intact. Extremities: 2+ radial pulses bilaterally. No lower extremity edema. Neuro: Sedated. Labs/Diagnostic Data Labs Test 05/11/24 08:15 05/11/24 07:26 05/11/24 07:02 05/11/24 05:30 Range/Units Lactic Acid Level 1.1 0.4-2.0 mmol/L Troponin I High Sensitivity 23 </=34 ng/L POC Glucose 114 H 70-106 mg/dl Blood Gas Specimen Type Arterial Blood Gas Sample Site Right radial Blood Gas Patient Temperature 37.0 Arterial Blood Date Drawn [id number] Arterial Blood pH 7.413 7.350-7.450 Arterial Blood Partial Pressure CO2 40.0 32.0-45.0 mmHg Arterial Blood Partial Pressure O2 293.3 H 83.0-108.0 mmHg Arterial Blood HCO3 25.0 21.0-28.0 mmol/L Arterial Blood Oxygen Saturation 99.6 H 94.0-98.0 % Arterial Blood Base Excess 0.4 -2.0-3.0 mmol/L Arterial Blood Oxyhemoglobin 98.5 H 94.0-98.0 % Arterial Blood Carboxyhemoglobin 0.4 L 0.5-1.5 % Arterial Blood Methemoglobin 0.7 0.0-1.5 % Yefri Test Modified Blood Gas Total Hemoglobin 10.70 L 12.0-16.0 g/dL Blood Gas Set Respiration Rate 18.0 Blood Gas Modality Vent - ac FiO2 % 100.0 Blood Gas Tidal Volume 450.0 Blood Gas PEEP or CPAP 5.0 White Blood Count 5.8 4.4-10.8 10^3/uL Red Blood Count 3.17 L 4.0-5.20 10^6/uL Hemoglobin 9.8 L 12.2-16.2 g/dL Hematocrit 30.3 L 36.0-46.0 % Mean Corpuscular Volume 95.5 80.0-100.0 fL Mean Corpuscular Hemoglobin 31.0 28.0-32.0 pg Mean Corpuscular Hemoglobin Concent 32.5 32.0-36.0 g/dL Red Cell Distribution Width 16.8 H 11.8-14.3 % Platelet Count 91 L 140-450 10^3/uL Mean Platelet Volume 9.0 6.9-10.8 fL Neutrophils (%) (Auto) 83.7 H 37.0-80.0 % Lymphocytes (%) (Auto) 8.1 L 10.0-50.0 % Monocytes (%) (Auto) 7.2 0.0-12.0 % Eosinophils (%) (Auto) 0.7 0.0-7.0 % Basophils (%) (Auto) 0.3 0.0-2.0 % Neutrophils # (Auto) 4.8 1.6-8.6 10 ^3/uL Lymphocytes # (Auto) 0.5 0.4-5.4 10 ^3/uL Monocytes # (Auto) 0.4 0-1.3 10 ^3/uL Eosinophils # (Auto) 0 0-0.8 10 ^3/uL Basophils # (Auto) 0 0-0.2 10 ^3/uL Nucleated Red Blood Cells 0.7 % Sodium Level 143 136-145 mmol/L Potassium Level 3.6 3.5-5.1 mmol/L Chloride Level 108 H 98-107 mmol/L Carbon Dioxide Level 26 20-31 mmol/L Anion Gap 9 5-15 Blood Urea Nitrogen 18 9-23 mg/dL Creatinine 1.08 H 0.550-1.02 mg/dL Glomerular Filtration Rate Calc 56 >90 mL/min BUN/Creatinine Ratio 16.7 10.0-20.0 Serum Glucose 150 H 74-106 mg/dL Hemoglobin A1c 5.4 <5.7 % A1C Calcium Level 9.7 8.7-10.4 mg/dL Magnesium Level 1.4 L 1.6-2.6 mg/dL Total Bilirubin 0.5 0.2-1.0 mg/dL Aspartate Amino Transferase (AST) 37 13-40 U/L Alanine Aminotransferase (ALT) 53 H 7-40 U/L Alkaline Phosphatase 131 H 46-116 U/L B-Type Natriuretic Peptide 223.67 0-100 pg/mL Total Protein 5.7 5.7-8.2 g/dL Albumin 3.4 3.2-4.8 g/dL Triglycerides Level 115 < 150 mg/dL Cholesterol Level 142 < 200 mg/dL LDL Cholesterol 48 < 100 mg/dL HDL Cholesterol 62 H 40-59 mg/dL Lipase 24 12-53 U/L Thyroid Stimulating Hormone (TSH) 2.40 0.55-4.78 uIU/mL Plasma/Serum Blood Alcohol < 3.0 <10 mg/dL Test 05/11/24 05:26 Range/Units Urine Color Yellow Yellow Urine Clarity Clear Clear Urine pH 8.0 5.0-9.0 Urine Specific [place] 1.020 1.001-1.035 Urine Protein 1+ H Negative Urine Ketones Negative Negative Urine Blood Negative Negative /uL Urine Nitrite Negative Negative Urine Bilirubin Negative Negative Urine Urobilinogen Normal Negative mg/dL Urine Leukocyte Esterase Negative Negative /uL Urine RBC 1 0 - 4 /hpf Urine WBC 6 0 - 5 /hpf Urine Squamous Epithelial Cells Few <5 /hpf Urine Bacteria None seen None Seen /hpf Urine Glucose Normal Normal mg/dL Urine Opiates Screen Neg NEGATIVE Urine Fentanyl Screen Neg NEGATIVE Urine Barbiturates Screen Neg NEGATIVE Urine Phencyclidine Screen Neg NEGATIVE Urine Amphetamines Screen Neg NEGATIVE Urine Benzodiazepines Screen Neg NEGATIVE Urine Cocaine Screen Neg NEGATIVE Urine Cannabinoids Screen Neg NEGATIVE Assessment Impression: Acute hypoxic respiratory failure On mechanical ventilator Pneumonia, likely gram negative Pleural effusion Atelectasis Plan: s/p intubation on mechanical ventilator. ABG reviewed, compensated. CT chest, abdomen and pelvis reviewed; demonstrates multifocal pneumonia, with lobar pneumonia in the left lower lobe and lingula with moderate bilateral pleural effusions. Probable simple cyst in the hepatic segment. On AC mode; RR 18, VT 450, PEEP 5 -->8, FiO2 30% PEEP was increased to 8 Titrate FIO2 to keep O2 saturation above 90%. VAP bundle. Daily ABG and CXR while intubated Sedate for ventilator synchrony - Propofol/Versed Off Fentanyl On pressors for hemodynamic support Levophed 2 mcg/min, dopamine 2.5 mcg/min Titrate to keep mean arterial pressure greater than 65 mmHg. Continue antibiotics. Glucagon Elayne Hugger d/t hypothermia Follow up echocardiogram Follow up Cardiology recs Monitor renal function Monitor electrolytes. Supplement as necessary. Monitor ins and outs. Magnesium supplementation IV fluids at 75 ml/hr. GI prophylaxis. DVT prophylaxis. Prognosis: Poor given patient's multiple co-morbidities. Condition: Critical Rest of plan per hospitalist and other consultants. A total of 35 minutes of critical care time was spent reviewing the patient record, examining the patient, making a diagnostic and therapeutic plan, discuss ing this plan with the medical personnel, following up on diagnostic studies and following the patient for clinical stability excluding any and all procedures. At least 50% of this time was spent in direct, [id number] contact. Thank you, ASNDRA Garcia, for allowing me to participate in this patient's care. Further recommendations will depend on the patient's clinical course. Please do not hesitate to contact me if you have any questions or concerns. This medical document was created using an electronic medical record system with [employer] dictation system. Although these documentations are being carefully reviewed, there may still be some phonetic and typographical changes. The errors are purely typographical, due to imperfection on the software pro gram, and do not reflect any compromise in the patient's medical care. Plan discussed with: Other (ED KAMERON Girard/SANDRA Garcia/) ROSE SEQUEIRA MD May 11, 2024 22:59
[2024-05-12] VITALS (109 sets, daily range): BP systolic 79–177; BP diastolic 37–96; PULSE 61–94; RESP 12–22; TEMP 96.6–99.1; O2SAT 93–100
[2024-05-12 04:30] LABS: Basophils # (auto) 0 10 ^3/uL (0-0.2); Basophils % (auto) 0.1 % (0.0-2.0); Eosinophils # (auto) 0.1 10 ^3/uL (0-0.8); Eosinophils % (auto) 0.5 % (0.0-7.0); Hematocrit 28.9 % (36.0-46.0); Hemoglobin 9.6 g/dL (12.2-16.2); Lymphocytes # (auto) 0.8 10 ^3/uL (0.4-5.4); Lymphocytes % (auto) 5.7 % (10.0-50.0); Mean Corpuscular Hemoglobin 31.1 pg (28.0-32.0); Mean Corpuscular Hgb Conc. 33.1 g/dL (32.0-36.0); Mean Corpuscular Volume 93.8 fL (80.0-100.0); Monocytes # (auto) 0.5 10 ^3/uL (0-1.3); Monocytes % (auto) 3.7 % (0.0-12.0); Neutrophils # (auto) 13.4 10 ^3/uL (1.6-8.6); Nucleated Red Blood Cells % 0.2 %; Platelet Count (auto) 89 10^3/uL (140-450); Red Blood Cells 3.09 10^6/uL (4.0-5.20); Red Cell Distribution Width 16.2 % (11.8-14.3); White Blood Cell 14.9 10^3/uL (4.4-10.8)
[2024-05-12 04:51] LABS: Albumin 3.2 g/dL (3.2-4.8); Anion Gap 8 (5-15); Aspartate Aminotransferase 28 U/L (13-40); BUN/Creatinine Ratio 18.4 (10.0-20.0); Bilirubin, Total 0.7 mg/dL (0.2-1.0); Blood Urea Nitrogen 19 mg/dL (9-23); Carbon Dioxide 24 mmol/L (20-31); Potassium 4.2 mmol/L (3.5-5.1); Sodium 140 mmol/L (136-145)
[2024-05-12 04:53] LABS: Alanine Aminotransferase 42 U/L (7-40); Alkaline Phosphatase 122 U/L (46-116); Chloride 108 mmol/L (98-107); Glucose 70 mg/dL (74-106); Total Protein 5.4 g/dL (5.7-8.2)
--- NOTE | 2024-05-12 06:42 | DVH ---
CHEST RADIOGRAPH Indication: Pneumonia Technique: Single frontal view of the chest was obtained Comparison: XY CHEST XRAY 1 VIEW on DOS: 05/11/24 FINDINGS: Lines and Tubes: Endotracheal tube terminates 6.5 cm above the neftali. The enteric tube terminates i n the stomach. Lungs: Bilateralopacities,decreased in the left lung field since prior study. Pleura: No effusion. No pneumothorax. Cardiomediastinal contours: Unremarkable Bones: No acute osseous abnormality. IMPRESSION: 1. Improved aeration in the bilateral lung urbina. 2. Stable position of the support lines and tubes.
[2024-05-12 07:07] LABS: Base Excess 0.5 mmol/L (-2.0-3.0)
[2024-05-12] MEDS: ENOXAPARIN SOD 40 MG/0.4 ML SYRINGE SC SCH (10:44)
[2024-05-12] MEDS: VANCOMYCIN 1GM/250ML KIT 250 ML IV SCH (15:51)
[2024-05-12] MEDS: PANTOPRAZOLE 40 MG/10 ML VIAL INJ IV ONE (15:53)
[2024-05-12 17:22] LABS: Rapid Influenza A Negative (Negative); Rapid Influenza B Negative (Negative)
--- NOTE | 2024-05-12 18:50 | DVHPNRES ---
Progress Note Date Seen: May 12, 2024 Resident Creating Document: GABRIELA VERONICA RESIDENT Medical Necessity Reason Pt with a Central, PICC or Fol: Yes The following are medically ne: Central Line, Shaw Catheter Subjective Review of Systems CRIS MILLER is a 68-year-old female with a PMH of CAD, HTN, dyslipidemia, CKD, dementia and seizure presented to the ED with the chief complaints of altered level of consciousness. Unable to obtain information, obtained from records which said the patient developed ALOC for approximately 7 hours and found with a blood sugar level of 58 ng/dL for which she was medicated with D10.. Patient intubated ,ventilated mechanically. patient seen and examined at the bedside. Unable to obtain ROS due to patient clinical status. Patient is currently on mechanical ventilation , Sedated. Continuously monitoring. Objective vital signs Vital Sign Date Time Temp Pulse Resp B/P (MAP) Pulse Ox O2 Delivery O2 Flow Rate FiO2 05/12/24 18:00 18 98 Mechanical Ventilator+ 30 30 05/12/24 18:00 80 05/12/24 17:30 98.8 107/47 (67) 209.8 05/11/24 05:15 0 Total Intake and Output 05/11/24 05/11/24 05/12/24 15:00 23:00 07:00 Intake Total 1868.714 ml 946.936 ml 825.496 ml Output Total 1600 ml Balance 1868.714 ml 946.936 ml -774.504 ml medications Current Medications Medications Dose Ordered Sig/Johan Route Start Time Stop Time Status Last Admin Dose Admin Propofol 100 ml @ 2.313 mls/ hr Q24H IV 05/11/24 05:00 05/12/24 11:57 6.94 MLS/HR Midazolam HCl 50 ml @ 1 mls/hr Q24H IV 05/11/24 05:00 05/12/24 15:23 4 MLS/HR Fentanyl Citrate 250 ml @ 2.5 mls/hr Q24H IV 05/11/24 05:00 05/11/24 08:15 2.5 MLS/HR Norepinephrine Bitartrate 250 ml @ 3.75 mls/hr Q24H IV 05/11/24 06:00 05/11/24 05:45 3.75 MLS/HR Vancomycin HCl 0 ml @ 0 mls/hr UD IV 05/11/24 12:45 Dopamine HCl/ Dextrose 250 ml @ 7.238 mls/ hr Q24H IV 05/11/24 14:45 05/11/24 16:59 7.238 MLS/HR Pantoprazole Sodium 40 mg DAILY IV 05/13/24 10:00 Vancomycin HCl 250 ml @ 250 mls/hr Q24H IV 05/12/24 16:00 05/12/24 15:51 250 MLS/HR Piperacillin Sod/ Tazobactam Sod 100 ml @ 25 mls/hr Q8HR IV 05/12/24 22:00 Examination Pt is lying on bed, General Appearance: Sedated, on mechanical ventilation, RR 18, VTE 450, peep 8, FiO2 30%. HEENT: Atraumatic, Mucous membranes moist/pink Respiratory: Clear to auscultation, Normal air movement, No added sounds Cardiovascular: Regular rate, Normal S1, Normal S2, No murmurs Abdominal: Active bowel sounds, Soft, no distension, no hepatosplenomegaly Extremities: no edema, no cyanosis, palpable pulses Skin: No Significant rash, except past surgical scars Neuro: pupils are constricted, Chemically sedated. Withdrawn Nurse was there as sharperone during examination laboratory and microbiology Laboratory Tests 05/12/24 04:09 Test 05/12/24 04:09 Range/Units Serum Glucose 70 L 74-106 mg/dL Microbiology Date/Time Source Procedure Growth Status 05/11/24 06:22 Sputum Expectorated Sputum Gram Stain - Final Resulted 05/11/24 06:22 Sputum Expectorated Sputum Respiratory Culture - Preliminary Resulted 05/11/24 05:44 Blood Blood Culture - Preliminary NO GROWTH AFTER 24 HOURS OF INCUBATION. Resulted 05/11/24 05:26 Urine - Shaw Port Urine Culture - Preliminary Resulted Labs and/or images reviewed: Labs reviewed by me, Image(s) reviewed by me Problem List/Assessment/Plan Problem List/Assessment/Plan NEUROLOGY # acute toxic and metabolic encephalopathy - CT showed no acute intracranial abnormalities # history of seizure disorder - seizure precautions # dementia - precautions to avoid delirium CARDIOVASCULAR # Septic shock likely due to pneumonia/MRSA? # Hypothermia induced bradycardia # ? acute on chronic diastolic heart failure # Hypomagnesemia # HX hypertension # Dyslipidemia, - ordered pancultures, - monitor lab - currently on Levophed, dopamine, Versed, Diprivan on 05/11 - echo showed LVEF 50% with grade 1 diastolic dysfunction - currently on vancomycin and Zosyn - initially vancomycin and cefepime, eventually cefepime replace with the Zosyn today - discontinue IVF RESPIRATORY # Acute hypoxic respiratory failure likely multifocal pneumonia/ lobar pneumonia # Acute Gram-positive /negative bacterial PNA # septic shock # moderate pleural effusion # Atelectasis - ordered pancultures, pending - ABG reviewed, CXR dialy - chest CT showed multifocal pneumonia with left lower lobe pneumonia, pleural effusion - currently on vancomycin and Zosyn - ventilatory settings: RR 18, VTE 450, peep 8, FiO2 30%. - ordered rapid flu test GI/LIVER - PUD prophylaxis, Protonix /KIDNEY/METABOLIC # Hypomagnesemia - Monitor renal function - Monitor electrolytes. Supplement as necessary. - Monitor ins and outs. - Magnesium supplementation ENDO MSK HEME # thrombocytopenia - monitor lab - hold Lovenox ID # Acute Gram-positive /negative bacterial PNA # septic shock - ordered pancultures, pending - currently on vancomycin and Zosyn - ordered rapid flu test SKIN LINES Right femoral vein catheter 0n 05/11 Shaw catheter DRIPS Levophed, dopamine, Versed, Diprivan NUTRITION Suppliments 30ml/hr (jevity) Goals of care/advance care planning; FULL CODE; discussed on for 27 minutes. PUD prophylaxis: Pantoprazole DVT prophylaxis: HOLD Lovenox Critical care time including chart review, discussing with the patient's family(son Anthony) excluding procedures: 81 minutes Case discussed with Dr. Cervantes. Plan discussed with: Other (rn) My Orders My Orders Orders - GABRIELA VERONICA RESIDENT Procedure Category Date Status Time PTPTT LAB 05/12/24 Logged 15:57 Basic Metabolic Panel LAB 05/13/24 Verified 04:00 Comprehensive LAB 05/13/24 Verified Metabolic Panel 04:00 Magnesium LAB 05/13/24 Verified 04:00 Lactic Acid W/ Reflex LAB 05/13/24 Verified Order 04:00 Chest Xray 1 View XY 05/13/24 Logged 04:00 Piperacillin-Tazob PHA 05/12/24 In Process 3.375gm (Zosyn 3.375g 22:00 Date of Service: May 12, 2024 Billing Provider: DANIEL CERVANTES MD Common Visit Codes: [id number] CARE 30-74 MIN, [id number] CARE-EACH +30MIN GABRIELA VERONICA RESIDENT May 12, 2024 18:49 DANIEL CERVANTES MD May 13, 2024 15:14
[2024-05-12 19:49] LABS: INR 1.06 (0.9-1.15); Prothrombin Time 11.2 sec (9.3-11.8)
[2024-05-12] MEDS: PIPERACILLIN-TAZOB 3.375GM 100 ML IV SCH (21:00)
[2024-05-13] VITALS (116 sets, daily range): BP systolic 79–172; BP diastolic 39–80; PULSE 45–84; RESP 17–22; TEMP 96.4–99.5; O2SAT 94–99
[2024-05-13 03:48] LABS: Basophils # (auto) 0.1 10 ^3/uL (0-0.2); Eosinophils # (auto) 0.1 10 ^3/uL (0-0.8); Eosinophils % (auto) 1.8 % (0.0-7.0); Hematocrit 27.3 % (36.0-46.0); Hemoglobin 9.1 g/dL (12.2-16.2); Lymphocytes # (auto) 0.9 10 ^3/uL (0.4-5.4); Lymphocytes % (auto) 11.4 % (10.0-50.0); Mean Corpuscular Hemoglobin 31.2 pg (28.0-32.0); Mean Corpuscular Hgb Conc. 33.3 g/dL (32.0-36.0); Mean Corpuscular Volume 93.8 fL (80.0-100.0); Monocytes # (auto) 0.3 10 ^3/uL (0-1.3); Monocytes % (auto) 4.1 % (0.0-12.0); Neutrophils # (auto) 6.6 10 ^3/uL (1.6-8.6); Neutrophils % (auto) 81.7 % (37.0-80.0); Nucleated Red Blood Cells % 0.1 %; Platelet Count (auto) 76 10^3/uL (140-450); Red Blood Cells 2.91 10^6/uL (4.0-5.20); Red Cell Distribution Width 16.3 % (11.8-14.3)
[2024-05-13 04:03] LABS: Alanine Aminotransferase 32 U/L (7-40); Anion Gap 7 (5-15); Aspartate Aminotransferase 20 U/L (13-40); Blood Urea Nitrogen 19 mg/dL (9-23); Carbon Dioxide 24 mmol/L (20-31); Glucose 74 mg/dL (74-106); Magnesium 1.9 mg/dL (1.6-2.6); Potassium 3.8 mmol/L (3.5-5.1); Sodium 138 mmol/L (136-145)
[2024-05-13 04:07] LABS: Albumin 3.1 g/dL (3.2-4.8); Alkaline Phosphatase 122 U/L (46-116); Chloride 107 mmol/L (98-107); Total Protein 5.3 g/dL (5.7-8.2)
--- NOTE | 2024-05-13 05:20 | DVH ---
CHEST RADIOGRAPH Indication: SOB Technique: Single frontal view of the chest was obtained COMPARISON: XY CHEST PORTABLE on DOS: 05/12/24, XY CHEST XRAY 1 VIEW on DOS: 05/11/24 FINDINGS: Lines and Tubes: Endotracheal tube and enteric catheter in satisfactory position. Lungs: Right lower lobe airspace disease. Pleura: No effusion. No pneumothorax. Cardiomediastinal contours: Unremarkable Bones: Unremarkable IMPRESSION: Lines and tubes in satisfactory position. No significant interval change.
[2024-05-13 07:14] LABS: Base Excess 0.3 mmol/L (-2.0-3.0)
[2024-05-13] MEDS: PANTOPRAZOLE 40 MG/10 ML VIAL INJ IV SCH (09:26)
[2024-05-13] MEDS: DOCUSATE ORAL LIQUID 100 MG/10 ML UD GT SCH (09:26)
--- NOTE | 2024-05-13 13:44 | ECG ---
[facility] Test Date: 2024-05-11 Test Time: 12:33:22 Pat Name: CRIS MILLER Department: ER Room: [address] [place] [address] A Gender: F Supervisor Wet Room: CATRACHITO : 1955 Requested By: DAPHNE DIEZ Order Number: [id number] Reading MD: Pedro Morgan Measurements Intervals [place] Rate: 47 P: 60 LA: 173 QRS: 54 QRSD: 103 T: 207 QT: 509 QTc: 450 Interpretive Statements Sinus bradycardia Probable LVH with secondary repol abnrm Electronically Signed On 05-15-2024 16:28:44 PST by Pedro Morgan Please click the below link to view image of tracing.
--- NOTE | 2024-05-13 14:16 | DVHPNRES ---
Progress Note Date Seen: May 13, 2024 Resident Creating Document: GABRIELA VERONICA RESIDENT Medical Necessity Reason Pt with a Central, PICC or Fol: Yes The following are medically ne: Central Line, Shaw Catheter Subjective Review of Systems CRIS MILLER is a 68-year-old female with a PMH of CAD, HTN, dyslipidemia, CKD, dementia and seizure presented to the ED with the chief complaints of altered level of consciousness. Patient seen and examined at the bedside. Unable to obtain ROS due to patient clinical status. Patient is currently on mechanical ventilation , Sedated. Overnight events reviewed, patient is hypothermic in night, initiated heating measures. Continuously monitoring. CPAP trail tomorrow morning. Changes from previous H/P or p: No Changes Objective vital signs Vital Sign Date Time Temp Pulse Resp B/P (MAP) Pulse Ox O2 Delivery O2 Flow Rate FiO2 05/13/24 14:06 63 18 107/48 (67 96 30 05/13/24 12:00 99.3 210.7 05/13/24 10:00 Mechanical Ventilator+ Total Intake and Output 05/12/24 05/12/24 05/13/24 15:00 23:00 07:00 Intake Total 526 ml 494 ml 247.178 ml Output Total 375 ml 425 ml Balance 526 ml 119 ml -177.822 ml medications Current Medications Medications Dose Ordered Sig/Johan Route Start Time Stop Time Status Last Admin Dose Admin Propofol 100 ml @ 2.313 mls/ hr Q24H IV 05/11/24 05:00 05/13/24 13:25 6.94 MLS/HR Midazolam HCl 50 ml @ 1 mls/hr Q24H IV 05/11/24 05:00 05/12/24 15:23 4 MLS/HR Fentanyl Citrate 250 ml @ 2.5 mls/hr Q24H IV 05/11/24 05:00 05/11/24 08:15 2.5 MLS/HR Norepinephrine Bitartrate 250 ml @ 3.75 mls/hr Q24H IV 05/11/24 06:00 05/11/24 05:45 3.75 MLS/HR Vancomycin HCl 0 ml @ 0 mls/hr UD IV 05/11/24 12:45 Dopamine HCl/ Dextrose 250 ml @ 7.238 mls/ hr Q24H IV 05/11/24 14:45 05/12/24 21:00 7.238 MLS/HR Pantoprazole Sodium 40 mg DAILY IV 05/13/24 10:00 05/13/24 09:26 40 MG Vancomycin HCl 250 ml @ 250 mls/hr Q24H IV 05/12/24 16:00 05/12/24 15:51 250 MLS/HR Piperacillin Sod/ Tazobactam Sod 100 ml @ 25 mls/hr Q8HR IV 05/12/24 22:00 05/13/24 13:34 25 MLS/HR Enteral Nutritional Formula 1,000 ml 30ML/HR GT 05/12/24 23:00 Docusate Sodium 100 mg BID GT 05/13/24 10:00 05/13/24 09:26 100 MG Examination Pt is lying on bed, General Appearance: Sedated, on mechanical ventilation, RR 18, VTE 450, peep 8, FiO2 30%. HEENT: Atraumatic, Mucous membranes moist/pink Respiratory: Clear to auscultation, Normal air movement, No added sounds Cardiovascular: Regular rate, Normal S1, Normal S2, No murmurs Abdominal: Active bowel sounds, Soft, no distension, no hepatosplenomegaly Extremities: Trace edema, no cyanosis, palpable pulses Skin: No Significant rash, except past surgical scars Neuro: pupils are constricted, Chemically sedated. Withdrawn Nurse was there as lanne during examination laboratory and microbiology Laboratory Tests 05/13/24 03:05 Test 05/13/24 03:05 Range/Units Serum Glucose 74 74-106 mg/dL Microbiology Date/Time Source Procedure Growth Status 05/11/24 06:22 Sputum Expectorated Sputum Gram Stain - Final Resulted 05/11/24 06:22 Sputum Expectorated Sputum Respiratory Culture - Preliminary Resulted 05/11/24 05:44 Blood Blood Culture - Preliminary NO GROWTH AFTER 48 HOURS OF INCUBATION. Resulted 05/11/24 05:26 Urine - Shaw Port Urine Culture - Preliminary Resulted Labs and/or images reviewed: Labs reviewed by me, Image(s) reviewed by me Problem List/Assessment/Plan Problem List/Assessment/Plan NEUROLOGY # acute toxic and metabolic encephalopathy - CT showed no acute intracranial abnormalities # history of seizure disorder - seizure precautions # dementia - precautions to avoid delirium CARDIOVASCULAR # Septic shock likely due to pneumonia/??MRSA # Hypothermia induced bradycardia # ? acute on chronic diastolic heart failure # Hypomagnesemia # HX hypertension # Dyslipidemia, - ordered pancultures, - monitor lab - currently on Levophed, dopamine, Versed, Diprivan on 05/11 - echo showed LVEF 50% with grade 1 diastolic dysfunction - currently on vancomycin and Zosyn - initially vancomycin and cefepime, eventually cefepime replace with the Zosyn today - discontinue IVF RESPIRATORY # Acute hypoxic respiratory failure likely multifocal pneumonia/ lobar pneumonia/? MRSA # Acute Gram-positive /negative bacterial PNA / ?MRSA / ?Pseudomanal PNA # septic shock # moderate pleural effusion # Atelectasis # MRSA nares positive - ordered pancultures, pending - ABG reviewed, CXR dialy - chest CT showed multifocal pneumonia with left lower lobe pneumonia, pleural effusion - currently on vancomycin and Zosyn - ventilatory settings: RR 18, VTE 450, peep 8, FiO2 30%. ,change PEEP to 5 - CPAP trail tomorrow morning. - ordered rapid flu test GI/LIVER - PUD prophylaxis, Protonix /KIDNEY/METABOLIC # Hypomagnesemia - Monitor renal function - Monitor electrolytes. Supplement as necessary. - Monitor ins and outs. - Magnesium supplementation ENDO MSK HEME # thrombocytopenia - monitor lab - hold Lovenox # Ruleout DVT - Ordered scan, pending ID # Acute Gram-positive /negative bacterial PNA/ ?MRSA / ?Pseudomanal PNA # septic shock - ordered pancultures, pending - currently on vancomycin and Zosyn - ordered rapid flu test, negative SKIN LINES Right femoral vein catheter 0n 05/11 Shaw catheter DRIPS Levophed, dopamine, Versed, Diprivan NUTRITION Suppliments 30ml/hr (jevity) Goals of care/advance care planning; FULL CODE; discussed on for 27 minutes. PUD prophylaxis: Pantoprazole DVT prophylaxis: HOLD Lovenox Critical care time including chart review, discussing with the patient's family(son Anthony) excluding procedures: 81 minutes Patient is status was updated to her son Anthony on bedside. Case discussed with Dr. Cervantes. CPAP trail tomorrow morning. Plan discussed with: Son My Orders My Orders Orders - GABRIELA VERONICA RESIDENT Procedure Category Date Status Time Chest Xray 1 View XY 05/13/24 Resulted 04:00 Piperacillin-Tazob PHA 05/12/24 In Process 3.375gm (Zosyn 3.375g 22:00 Covid19 Antigen [place] LAB 05/13/24 Logged Date of Service: May 13, 2024 Billing Provider: DANIEL CERVANTES MD Common Visit Codes: [id number] CARE 30-74 MIN, [id number] CARE-EACH +30MIN GABRIELA VERONICA RESIDENT May 13, 2024 14:16 DANIEL CERVANTES MD May 14, 2024 14:47
[2024-05-13] MEDS: NOREPINEPHRINE 8 MG/250ML KIT 250 ML IV SCH (15:15)
--- NOTE | 2024-05-13 16:08 | MEDREC ---
[facility] Intervention Section I [facility] Intervention: Review courses of therapy (MRSA SCREEN POSITIVE CONSIDER ADDING MUPIROCIN 2% OINTMENT 1 APPLICATION IN EACH NOSTRIL BID FOR 5 DAYS ) OLVIN MCKNIGHT PHARMACIST May 13, 2024 16:08
[2024-05-13] MEDS: MUPIROCIN 2% OINT 15gm or 22gm FOR MRSA NARES EACHNOSTRI SCH (18:31)
--- NOTE | 2024-05-13 18:56 | DVH ---
CLINICAL HISTORY: swollen , warmth, red upper extremities TECHNIQUE: Color and duplex doppler imaging of the bilateral upper extremity veins and subclavian vei n was performed. Vessel compression if possible was also performed. WID: COMPARISON: None FINDINGS: The bilateral internal jugular, axillary, basilic, cephalic, brachial , ulnar, radial veins are cooper nt and demonstrate normal compressibility and flow. The subclavian veins bilaterally are patent. IMPRESSION: NO SONOGRAPHIC EVIDENCE FOR DEEP VENOUS THROMBOSIS IN THE BILATERAL UPPER EXTREMITY VEINS.
[2024-05-13] MEDS: levETIRAcetam 500 MG TAB NG SCH (21:35)
[2024-05-14] VITALS (113 sets, daily range): BP systolic 90–153; BP diastolic 39–119; PULSE 46–76; RESP 13–20; TEMP 95.5–100; O2SAT 93–100
[2024-05-14] MEDS: Jevity 1.2 Cal/Fiber 1 Liter GT SCH (02:56)
[2024-05-14 03:53] LABS: Basophils # (auto) 0 10 ^3/uL (0-0.2); Basophils % (auto) 0.5 % (0.0-2.0); Eosinophils # (auto) 0.3 10 ^3/uL (0-0.8); Hematocrit 24.5 % (36.0-46.0); Hemoglobin 8.3 g/dL (12.2-16.2); Lymphocytes # (auto) 0.6 10 ^3/uL (0.4-5.4); Lymphocytes % (auto) 7.8 % (10.0-50.0); Mean Corpuscular Hemoglobin 31.7 pg (28.0-32.0); Mean Corpuscular Hgb Conc. 33.7 g/dL (32.0-36.0); Mean Corpuscular Volume 94.1 fL (80.0-100.0); Monocytes # (auto) 0.3 10 ^3/uL (0-1.3); Monocytes % (auto) 3.7 % (0.0-12.0); Neutrophils # (auto) 6.3 10 ^3/uL (1.6-8.6); Nucleated Red Blood Cells % 0.2 %; Platelet Count (auto) 63 10^3/uL (140-450); Red Blood Cells 2.61 10^6/uL (4.0-5.20); Red Cell Distribution Width 16.1 % (11.8-14.3); White Blood Cell 7.5 10^3/uL (4.4-10.8)
[2024-05-14 04:08] LABS: Alanine Aminotransferase 29 U/L (7-40); Anion Gap 7 (5-15); Aspartate Aminotransferase 21 U/L (13-40); BUN/Creatinine Ratio 14.5 (10.0-20.0); Blood Urea Nitrogen 22 mg/dL (9-23); Calcium 9.3 mg/dL (8.7-10.4); Carbon Dioxide 23 mmol/L (20-31); Glucose 87 mg/dL (74-106); Magnesium 2.1 mg/dL (1.6-2.6); Sodium 137 mmol/L (136-145)
[2024-05-14 04:18] LABS: Albumin 2.9 g/dL (3.2-4.8); Alkaline Phosphatase 139 U/L (46-116); Chloride 107 mmol/L (98-107)
--- NOTE | 2024-05-14 04:50 | DVH ---
CHEST RADIOGRAPH Indication: pna Technique: Single frontal view of the chest was obtained Comparison: XY CHEST XRAY 1 VIEW on DOS: 05/13/24 FINDINGS: Lines and Tubes: The endotracheal tube terminates 5.4 cm above the neftali. The enteric tube courses b elow the left hemidiaphragm and the tip extends outside the field of view. Lungs: Right basilar airspace disease. Left basilar opacity noted. Pleura: No effusion. No pneumothorax. Cardiomediastinal contours: Stable. Bones: No acute osseous abnormality. IMPRESSION: 1. Bibasilar airspace disease, unchanged. Stable position of the support lines and tubes.
[2024-05-14 08:04] LABS: Base Excess -0.7 mmol/L (-2.0-3.0)
[2024-05-14 08:14] LABS: COVID19 ANTIGEN SOFIA FIA NEGATIVE (NEGATIVE)
[2024-05-14] MEDS ORDERED: TRAZ-227 PO (14:48)
[2024-05-14] MEDS ORDERED: METO25TA5 PO (14:53)
--- NOTE | 2024-05-14 14:54 | MEDREC ---
[facility] Intervention Section I [facility] Intervention: Review courses of therapy (PLEASE CONSIDER SWITCHING TO ANOTHER COMBINATION OF ANTIBIOTICS - ASSOCIATION OF VANCOMYCIN AND ZOSYN INCREASES THE RISK OF ADALBERTO) OLVIN MCKNIGHT PHARMACIST May 14, 2024 14:54
[2024-05-14] MEDS ORDERED: HYDR25TA88 PO (15:02)
--- NOTE | 2024-05-14 16:32 | DVHPNRES ---
Progress Note Date Seen: May 14, 2024 Resident Creating Document: GABRIELA VERONICA RESIDENT Medical Necessity Reason Pt with a Central, PICC or Fol: Yes The following are medically ne: Central Line, Shaw Catheter Subjective Review of Systems CRIS MILLER is a 68-year-old female with a PMH of CAD, HTN, dyslipidemia, CKD, dementia and seizure presented to the ED with the chief complaints of altered level of consciousness. Patient seen and examined at the bedside. Unable to obtain ROS due to patient clinical status. Patient is currently on mechanical ventilation , Sedated. Overnight events reviewed, patient is hypothermic in night, initiated heating measures. Continuously monitoring. Unable to do CPAP trial today because, patient is currently sedation vacation, not fully awake, CPAP trial tomorrow. Monitor lab. Changes from previous H/P or p: No Changes Objective vital signs Vital Sign Date Time Temp Pulse Resp B/P (MAP) Pulse Ox O2 Delivery O2 Flow Rate FiO2 05/14/24 16:00 30 05/14/24 15:45 56 18 112/47 (68) 95 05/14/24 15:00 97.2 97.2 05/14/24 14:00 Mechanical Ventilator+ Total Intake and Output 05/13/24 05/13/24 05/14/24 15:00 23:00 07:00 Intake Total 256.674 ml 458.886 ml 169.885 ml Output Total 400 ml 150 ml Balance 256.674 ml 58.886 ml 19.885 ml medications Current Medications Medications Dose Ordered Sig/Johan Route Start Time Stop Time Status Last Admin Dose Admin Propofol 100 ml @ 2.313 mls/ hr Q24H IV 05/11/24 05:00 05/14/24 01:19 4.627 MLS/HR Midazolam HCl 50 ml @ 1 mls/hr Q24H IV 05/11/24 05:00 05/14/24 02:56 3 MLS/HR Fentanyl Citrate 250 ml @ 2.5 mls/hr Q24H IV 05/11/24 05:00 05/11/24 08:15 2.5 MLS/HR Vancomycin HCl 0 ml @ 0 mls/hr UD IV 05/11/24 12:45 Pantoprazole Sodium 40 mg DAILY IV 05/13/24 10:00 05/14/24 09:32 40 MG Piperacillin Sod/ Tazobactam Sod 100 ml @ 25 mls/hr Q8HR IV 05/12/24 22:00 05/14/24 13:40 25 MLS/HR Enteral Nutritional Formula 1,000 ml 30ML/HR GT 05/12/24 23:00 05/14/24 02:56 1,000 ML Docusate Sodium 100 mg BID GT 05/13/24 10:00 05/14/24 09:32 100 MG Norepinephrine Bitartrate 250 ml @ 0.938 mls/ hr Q24H IV 05/13/24 15:15 05/13/24 18:03 2.813 MLS/HR Mupirocin 1 applic BID EACHNOSTRI 05/13/24 17:00 05/18/24 16:59 05/14/24 09:40 1 APPLIC Levetiracetam 500 mg BID NG 05/13/24 22:00 05/14/24 09:32 500 MG Dexmedetomidine HCl 400 mcg/ Dextrose 100 ml @ 3.41 mls/hr Q24H IV 05/14/24 08:45 05/14/24 08:53 3.41 MLS/HR Lorazepam 1 mg Q5MINP PRN IV 05/14/24 08:45 Sodium Chloride 1,000 ml @ 50 mls/hr Q20H IV 05/14/24 14:45 Examination Pt is lying on bed, General Appearance: Sedated, on mechanical ventilation, RR 18, VTE 450, peep 5, FiO2 30%. HEENT: Atraumatic, Mucous membranes moist/pink Respiratory: Clear to auscultation, Normal air movement, No added sounds Cardiovascular: Regular rate, Normal S1, Normal S2, No murmurs Abdominal: Active bowel sounds, Soft, no distension, no hepatosplenomegaly Extremities: Trace edema, no cyanosis, palpable pulses Skin: No Significant rash, except past surgical scars Neuro: pupils are slightly reactive, Chemically sedated. Withdrawn Nurse was there as lanne during examination laboratory and microbiology Laboratory Tests 05/14/24 03:21 Test 05/14/24 03:21 Range/Units Serum Glucose 87 74-106 mg/dL Microbiology Date/Time Source Procedure Growth Status 05/12/24 00:00 Nose MRSA Screen - Final Methicillin Resistant S.aureus Complete 05/11/24 06:22 Sputum Expectorated Sputum Gram Stain - Final Complete 05/11/24 06:22 Sputum Expectorated Sputum Respiratory Culture - Final Complete 05/11/24 05:44 Blood Blood Culture - Preliminary NO GROWTH AFTER 72 HOURS OF INCUBATION. Resulted 05/11/24 05:26 Urine - [place] Urine Culture - Preliminary Resulted Labs and/or images reviewed: Labs reviewed by me, Image(s) reviewed by me Problem List/Assessment/Plan Problem List/Assessment/Plan NEUROLOGY # acute toxic and metabolic encephalopathy - CT showed no acute intracranial abnormalities # history of seizure disorder - seizure precautions # dementia - precautions to avoid delirium CARDIOVASCULAR # Septic shock likely due to pneumonia/??MRSA # Hypothermia induced bradycardia # ? acute on chronic diastolic heart failure # Hypomagnesemia # HX hypertension # Dyslipidemia, - ordered pancultures, - monitor lab - Levophed, dopamine, Versed, Diprivan on 05/11, currently off from all 05/14 - echo showed LVEF 50% with grade 1 diastolic dysfunction - currently on vancomycin and Zosyn - added IVF ns 50ml/hr RESPIRATORY # Acute hypoxic respiratory failure likely multifocal pneumonia/ lobar pneumonia/? MRSA # Acute Gram-positive /negative bacterial PNA / ?MRSA / ?Pseudomanal PNA # septic shock # moderate pleural effusion # Atelectasis # MRSA nares positive - ordered pancultures, pending - ABG reviewed, CXR dialy - chest CT showed multifocal pneumonia with left lower lobe pneumonia, pleural effusion - currently on vancomycin and Zosyn - ventilatory settings: RR 18, VTE 450, peep 5, FiO2 30%. - CPAP trail tomorrow morning. - ordered rapid flu test,negative GI/LIVER - PUD prophylaxis, Protonix /KIDNEY/METABOLIC # Hypomagnesemia - Monitor renal function - Monitor electrolytes. Supplement as necessary. - Monitor ins and outs. - Magnesium supplementation ENDO MSK HEME # thrombocytopenia - monitor lab - hold Lovenox # Ruleout DVT - Ordered scan, pending ID # Acute Gram-positive /negative bacterial PNA/ ?MRSA / ?Pseudomanal PNA # septic shock - ordered pancultures, pending - currently on vancomycin and Zosyn - ordered rapid flu test, negative SKIN LINES Right femoral vein catheter 0n 05/11 Shaw catheter DRIPS Levophed, dopamine, Versed, Diprivan off from all 05/14. NUTRITION Suppliments 30ml/hr (jevity) Goals of care/advance care planning; FULL CODE; discussed on for 27 minutes. PUD prophylaxis: Pantoprazole DVT prophylaxis: HOLD Lovenox Critical care time including chart review, discussing with the patient's family(son Anthony) excluding procedures: 81 minutes Patient is status was updated to her son Anthony Case discussed with Dr. Cervantes. CPAP trail tomorrow morning. Plan discussed with: Son My Orders My Orders Orders - GABRIELA VERONICA Procedure Category Date Status Time Bi Lat Upper Dvt US 05/13/24 Resulted 16:56 Mupirocin 2% Oint PHA 05/13/24 In Process Mrsa Nares (Bactroban 17:00 Abg W/ Co-Ox RT 05/14/24 Logged 04:00 Chest Xray 1 View XY 05/14/24 Resulted 04:00 Levetiracetam Tablet PHA 05/13/24 In Process (Keppra Tablet) 22:00 Ventilator Orders RT 05/13/24 Transmitted 17:02 Ventilator Orders RT 05/14/24 Transmitted 05:16 D5w 5% (Dextrose 5%) PHA 05/14/24 In Process W/Dexmedetomidine 08:45 Lorazepam 2mg/Ml Inj PHA 05/14/24 In Process (Ativan Inj) 08:45 Cpap Trial For Am ORDERS 05/14/24 Transmitted 16:21 Cortisol Am LAB 05/15/24 Verified 04:00 Vitamin B12 LAB 05/15/24 Verified 04:00 Lorazepam 2mg/Ml Inj PHA 05/14/24 Logged (Ativan Inj) 16:30 Abg W/ Co-Ox RT 05/15/24 Logged 04:00 Chest Xray 1 View XY 05/15/24 Logged 04:00 Complete Blood Count LAB 05/15/24 Verified 04:00 Comprehensive LAB 05/15/24 Verified Metabolic Panel 04:00 Magnesium LAB 05/15/24 Verified 04:00 Dietary Evaluation Review Comments: Increase Jevity to 50ml/hr,(67 gpro, 1440 kcal) adjust as rate tolerated. Expected Outcomes/Goals: improved protein nutrition, healed wounds, gradual weight loss Date of Service: May 14, 2024 Billing Provider: DANIEL CERVANTES MD Common Visit Codes: [id number] CARE 30-74 MIN, [id number] CARE-EACH +30MIN GABRIELA VERONICA May 14, 2024 16:31 DANIEL CERVANTES MD May 15, 2024 11:35
[2024-05-14] MEDS: SODIUM CHLORIDE 0.9% 1,000 ML IV SCH (17:15)
[2024-05-14] MEDS: LORazepam 2MG/ML-1ML VIAL IV PRN (17:26)
[2024-05-14] MEDS ORDERED: BUSP10TA90 PO (18:29)
[2024-05-14] MEDS ORDERED: LEVE500T40 PO (18:33)
[2024-05-14] MEDS ORDERED: THIA100T10 PO (18:37)
[2024-05-14] MEDS ORDERED: FOLI-119 PO (18:37)
[2024-05-14] MEDS ORDERED: MULT-1018 PO (18:38)
[2024-05-14] MEDS ORDERED: ATOR20TA PO (18:41)
[2024-05-15] VITALS (104 sets, daily range): BP systolic 90–198; BP diastolic 45–98; PULSE 57–125; RESP 14–32; TEMP 96.3–98.5; O2SAT 93–100
[2024-05-15 03:44] LABS: Basophils # (auto) 0 10 ^3/uL (0-0.2); Eosinophils # (auto) 0.4 10 ^3/uL (0-0.8); Hemoglobin 7.7 g/dL (12.2-16.2); Mean Corpuscular Hemoglobin 31.6 pg (28.0-32.0); Monocytes # (auto) 0.4 10 ^3/uL (0-1.3); Neutrophils # (auto) 6.2 10 ^3/uL (1.6-8.6); Platelet Count (auto) 68 10^3/uL (140-450); Red Blood Cells 2.45 10^6/uL (4.0-5.20); Red Cell Distribution Width 16.3 % (11.8-14.3); White Blood Cell 7.9 10^3/uL (4.4-10.8)
[2024-05-15 03:48] LABS: Basophils % (auto) 0.4 % (0.0-2.0); Hematocrit 23.1 % (36.0-46.0); Lymphocytes # (auto) 0.9 10 ^3/uL (0.4-5.4); Lymphocytes % (auto) 11.1 % (10.0-50.0); Mean Corpuscular Hgb Conc. 33.5 g/dL (32.0-36.0); Mean Corpuscular Volume 94.4 fL (80.0-100.0); Neutrophils % (auto) 78.5 % (37.0-80.0); Nucleated Red Blood Cells % 0.1 %
[2024-05-15 04:06] LABS: Anion Gap 8 (5-15); Calcium 9.2 mg/dL (8.7-10.4); Carbon Dioxide 22 mmol/L (20-31); Glucose 83 mg/dL (74-106); Sodium 141 mmol/L (136-145)
[2024-05-15 04:07] LABS: BUN/Creatinine Ratio 17.9 (10.0-20.0); Bilirubin, Total 0.8 mg/dL (0.2-1.0)
[2024-05-15 04:09] LABS: Alanine Aminotransferase 47 U/L (7-40); Alkaline Phosphatase 189 U/L (46-116); Aspartate Aminotransferase 50 U/L (13-40); Blood Urea Nitrogen 25 mg/dL (9-23); Chloride 111 mmol/L (98-107); Potassium 3.5 mmol/L (3.5-5.1); Total Protein 5.1 g/dL (5.7-8.2)
--- NOTE | 2024-05-15 05:37 | DVH ---
CHEST RADIOGRAPH Indication: pna Technique: Single frontal view of the chest was obtained Comparison: XY CHEST XRAY 1 VIEW on DOS: 05/14/24 FINDINGS: Lines and Tubes: The endotracheal tube terminates 4.4 cm above the neftali. The enteric tube courses b elow the left hemidiaphragm and the tip extends outside the field of view. Lungs: Patchy bilateral opacities. Pleura: Small bilateral pleural effusions. No pneumothorax. Cardiomediastinal contours: Unremarkable Bones: No acute osseous abnormality. IMPRESSION: 1. Patchy bilateral opacities and bilateral pleural effusions similar to the prior study.
[2024-05-15 08:06] LABS: Base Excess -0.9 mmol/L (-2.0-3.0)
[2024-05-15] MEDS: VANCOMYCIN 750MG KIT 100 ML IV ONE (16:51)
[2024-05-15 16:58] LABS: Sodium 142 mmol/L (136-145)
[2024-05-15 16:59] LABS: Anion Gap 7 (5-15); Calcium 9.1 mg/dL (8.7-10.4); Carbon Dioxide 22 mmol/L (20-31)
[2024-05-15 17:04] LABS: BUN/Creatinine Ratio 17.9 (10.0-20.0); Blood Urea Nitrogen 21 mg/dL (9-23)
[2024-05-15 17:05] LABS: Magnesium 1.8 mg/dL (1.6-2.6)
--- NOTE | 2024-05-15 17:49 | DVHPNRES ---
Progress Note Date Seen: May 15, 2024 Resident Creating Document: GABRIELA VERONICA RESIDENT Medical Necessity Reason Pt with a Central, PICC or Fol: Yes The following are medically ne: Central Line, Shaw Catheter Subjective Review of Systems CRIS MILLER is a 68-year-old female with a PMH of CAD, HTN, dyslipidemia, CKD, dementia and seizure presented to the ED with the chief complaints of altered level of consciousness. Patient seen and examined at the bedside. Unable to obtain ROS due to patient clinical status. Unable to do CPAP trial today, because patient is developing rapid shallow breathing, AFib. CPAP trial tomorrow Changes from previous H/P or p: No Changes Objective vital signs Vital Sign Date Time Temp Pulse Resp B/P (MAP) Pulse Ox O2 Delivery O2 Flow Rate FiO2 05/15/24 17:31 99 17 144/81 (102) 98 05/15/24 16:41 30 05/15/24 16:30 98.5 98.5 05/15/24 16:00 Mechanical Ventilator+ Total Intake and Output 05/14/24 05/14/24 05/15/24 15:00 23:00 07:00 Intake Total 110.162 ml 529 ml 660 ml Output Total 250 ml 275 ml Balance 110.162 ml 279 ml 385 ml medications Current Medications Medications Dose Ordered Sig/Johan Route Start Time Stop Time Status Last Admin Dose Admin Propofol 100 ml @ 2.313 mls/ hr Q24H IV 05/11/24 05:00 05/14/24 01:19 4.627 MLS/HR Midazolam HCl 50 ml @ 1 mls/hr Q24H IV 05/11/24 05:00 05/14/24 02:56 3 MLS/HR Fentanyl Citrate 250 ml @ 2.5 mls/hr Q24H IV 05/11/24 05:00 05/11/24 08:15 2.5 MLS/HR Vancomycin HCl 0 ml @ 0 mls/hr UD IV 05/11/24 12:45 Pantoprazole Sodium 40 mg DAILY IV 05/13/24 10:00 05/15/24 10:47 40 MG Piperacillin Sod/ Tazobactam Sod 100 ml @ 25 mls/hr Q8HR IV 05/12/24 22:00 05/15/24 13:34 25 MLS/HR Enteral Nutritional Formula 1,000 ml 30ML/HR GT 05/12/24 23:00 05/15/24 17:03 1,000 ML Docusate Sodium 100 mg BID GT 05/13/24 10:00 05/15/24 10:46 100 MG Norepinephrine Bitartrate 250 ml @ 0.938 mls/ hr Q24H IV 05/13/24 15:15 05/13/24 18:03 2.813 MLS/HR Mupirocin 1 applic BID EACHNOSTRI 05/13/24 17:00 05/18/24 16:59 05/15/24 10:46 1 APPLIC Levetiracetam 500 mg BID NG 05/13/24 22:00 05/15/24 10:47 500 MG Dexmedetomidine HCl 400 mcg/ Dextrose 100 ml @ 3.41 mls/hr Q24H IV 05/14/24 08:45 05/14/24 08:53 3.41 MLS/HR Lorazepam 1 mg Q5MINP PRN IV 05/14/24 08:45 Lorazepam 1 mg Q4HPRN PRN IV 05/14/24 16:30 05/15/24 12:04 1 MG Fentanyl Citrate 250 ml @ 2.5 mls/hr Q24H IV 05/15/24 17:45 UNV Dexmedetomidine HCl 400 mcg/ Dextrose 100 ml @ 3.41 mls/hr Q24H IV 05/15/24 17:45 UNV Examination Pt is lying on bed, General Appearance: mildly awake, on mechanical ventilation, RR 18, VTE 450, peep 5, FiO2 30%. HEENT: Atraumatic, Mucous membranes moist/pink Respiratory: Clear to auscultation, Normal air movement, No added sounds Cardiovascular: Regular rate, Normal S1, Normal S2, No murmurs Abdominal: Active bowel sounds, Soft, no distension, no hepatosplenomegaly Extremities: Trace edema, no cyanosis, palpable pulses Skin: No Significant rash, except past surgical scars Neuro: pupils are slightly reactive, laboratory and microbiology Laboratory Tests 05/15/24 03:05 Test 05/15/24 16:32 Range/Units Serum Glucose Pending Microbiology Date/Time Source Procedure Growth Status 05/12/24 00:00 Nose MRSA Screen - Final Methicillin Resistant S.aureus Complete 05/11/24 06:22 Sputum Expectorated Sputum Gram Stain - Final Complete 05/11/24 06:22 Sputum Expectorated Sputum Respiratory Culture - Final Complete 05/11/24 05:44 Blood Blood Culture - Preliminary NO GROWTH AFTER 72 HOURS OF INCUBATION. Resulted 05/11/24 05:26 Urine - [place] Urine Culture - Preliminary Resulted Labs and/or images reviewed: Labs reviewed by me, Image(s) reviewed by me Problem List/Assessment/Plan Problem List/Assessment/Plan NEUROLOGY # acute toxic and metabolic encephalopathy - CT showed no acute intracranial abnormalities # history of seizure disorder - seizure precautions # dementia - precautions to avoid delirium CARDIOVASCULAR # Septic shock likely due to pneumonia/??MRSA # Hypothermia induced bradycardia # ? acute on chronic diastolic heart failure # Hypomagnesemia # HX hypertension # Dyslipidemia, - ordered pancultures, - monitor lab - Levophed, dopamine, Versed, Diprivan on 05/11, currently off from all 05/14 - today patient again back on fentanyl and Precedex - echo showed LVEF 50% with grade 1 diastolic dysfunction - currently on vancomycin and Zosyn - stop ivf RESPIRATORY # Acute hypoxic respiratory failure likely multifocal pneumonia/ lobar pneumonia/? MRSA # Acute Gram-positive /negative bacterial PNA / ?MRSA / ?Pseudomanal PNA # septic shock # moderate pleural effusion # Atelectasis # MRSA nares positive - ordered pancultures, pending - ABG reviewed, CXR dialy - chest CT showed multifocal pneumonia with left lower lobe pneumonia, pleural effusion - currently on vancomycin and Zosyn - ventilatory settings: RR 18, VTE 450, peep 5, FiO2 30%. - CPAP trail tomorrow morning. - ordered rapid flu test,negative GI/LIVER - PUD prophylaxis, Protonix /KIDNEY/METABOLIC # Hypomagnesemia - Monitor renal function - Monitor electrolytes. Supplement as necessary. - Monitor ins and outs. - Magnesium supplementation ENDO MSK HEME # thrombocytopenia - monitor lab - hold Lovenox # Ruleout DVT - Ordered scan, pending ID # Acute Gram-positive /negative bacterial PNA/ ?MRSA / ?Pseudomanal PNA # septic shock - ordered pancultures, pending - currently on vancomycin and Zosyn - ordered rapid flu test, negative SKIN LINES Right femoral vein catheter 0n 05/11 Shaw catheter DRIPS Levophed, dopamine, Versed, Diprivan off from all 05/14. NUTRITION Suppliments 30ml/hr (jevity) Goals of care/advance care planning; FULL CODE; discussed on for 27 minutes. PUD prophylaxis: Pantoprazole DVT prophylaxis: HOLD Lovenox Critical care time including chart review, discussing with the patient's family(son Anthony) excluding procedures: 81 minutes Patient is status was updated to her son Anthony Case discussed with Dr. Cervantes. CPAP trail tomorrow morning. Plan discussed with: Son My Orders My Orders Orders - GABRIELA VERONICA Procedure Category Date Status Time Ventilator Orders RT 05/14/24 Transmitted 17:53 Ventilator Orders RT 05/15/24 Transmitted 04:22 Chest Xray 1 View XY 05/16/24 Logged 04:00 Abg W/ Co-Ox RT 05/16/24 Logged 04:00 Complete Blood Count LAB 05/16/24 Verified 04:00 Comprehensive LAB 05/16/24 Verified Metabolic Panel 04:00 Magnesium LAB 05/16/24 Verified 04:00 Tap Water Enema ORDERS 05/15/24 Transmitted 17:33 Fentanyl Drip PHA 05/15/24 Logged 2500mcg/250mlns 17:45 Rass Sedation Scale IGNACIO 05/15/24 In Process 17:38 D5w 5% (Dextrose 5%) PHA 05/15/24 Logged W/Dexmedetomidine 17:45 Cpap Trial For Am ORDERS 05/15/24 Transmitted 17:40 Dietary Evaluation Review Comments: Increase Jevity to 50ml/hr,(67 gpro, 1440 kcal) adjust as rate tolerated. Expected Outcomes/Goals: improved protein nutrition, healed wounds, gradual weight loss Date of Service: May 15, 2024 Billing Provider: DANIEL CERVANTES MD Common Visit Codes: 89084-[id number] CARE 30-74 MIN, 52094-[id number] CARE-EACH +30MIN GABRIELA VERONICA May 15, 2024 17:49 DANIEL CERVANTES MD May 18, 2024 12:25
[2024-05-15 18:02] LABS: Chloride 113 mmol/L (98-107); Glucose 72 mg/dL (74-106); Potassium 3.5 mmol/L (3.5-5.1)
[2024-05-15] MEDS: fentaNYL Drip 2500mCg/250mlNS 250 ML IV SCH (18:37)
[2024-05-16] VITALS (88 sets, daily range): BP systolic 99–189; BP diastolic 46–117; PULSE 57–116; RESP 8–27; TEMP 97.7–98.2; O2SAT 95–100
[2024-05-16 04:04] LABS: Basophils # (auto) 0 10 ^3/uL (0-0.2); Lymphocytes % (auto) 13.7 % (10.0-50.0); Monocytes # (auto) 0.6 10 ^3/uL (0-1.3); Platelet Count (auto) 93 10^3/uL (140-450); Red Blood Cells 2.52 10^6/uL (4.0-5.20); Red Cell Distribution Width 16.4 % (11.8-14.3)
[2024-05-16 04:06] LABS: Basophils % (auto) 0.3 % (0.0-2.0); Eosinophils # (auto) 0.4 10 ^3/uL (0-0.8); Hematocrit 23.9 % (36.0-46.0); Mean Corpuscular Hemoglobin 31.6 pg (28.0-32.0); Mean Corpuscular Hgb Conc. 33.3 g/dL (32.0-36.0); Mean Corpuscular Volume 94.9 fL (80.0-100.0); Monocytes % (auto) 7.6 % (0.0-12.0); Neutrophils # (auto) 5.5 10 ^3/uL (1.6-8.6); Neutrophils % (auto) 73.4 % (37.0-80.0); Nucleated Red Blood Cells % 0.2 %; White Blood Cell 7.4 10^3/uL (4.4-10.8)
[2024-05-16 04:42] LABS: Anion Gap 7 (5-15); Aspartate Aminotransferase 39 U/L (13-40); BUN/Creatinine Ratio 17.6 (10.0-20.0); Blood Urea Nitrogen 19 mg/dL (9-23); Calcium 9.4 mg/dL (8.7-10.4); Carbon Dioxide 23 mmol/L (20-31); Sodium 141 mmol/L (136-145)
[2024-05-16 04:43] LABS: Bilirubin, Total 0.6 mg/dL (0.2-1.0)
[2024-05-16 04:45] LABS: Alanine Aminotransferase 44 U/L (7-40); Albumin 3.2 g/dL (3.2-4.8); Alkaline Phosphatase 210 U/L (46-116); Chloride 111 mmol/L (98-107); Glucose 109 mg/dL (74-106); Potassium 3.5 mmol/L (3.5-5.1); Total Protein 5.4 g/dL (5.7-8.2)
--- NOTE | 2024-05-16 05:58 | DVH ---
CHEST RADIOGRAPH Indication: pna Technique: Single frontal view of the chest was obtained Comparison: XY CHEST XRAY 1 VIEW on DOS: 05/15/24 FINDINGS: Lines and Tubes: The endotracheal tube terminates 4.3 cm the neftali. The enteric tube terminates belo w the left hemidiaphragm and outside the field of view. Lungs: Patchy bilateral opacities. Pleura: No effusion. No pneumothorax. Cardiomediastinal contours: Unremarkable Bones: No acute osseous abnormality. IMPRESSION: 1. Appropriate position of the support lines and tubes. 2. Patchy bilateral opacities which may represent edema or pneumonia.
[2024-05-16] MEDS: POTASSIUM CHL 20MEQ/100ML 100 ML IV ONE (07:53)
[2024-05-16] MEDS: hydrALAZINE HCL 20 MG/ML VL IV PRN (09:28)
[2024-05-16 10:48] LABS: Base Excess -2.9 mmol/L (-2.0-3.0)
[2024-05-16] MEDS: FUROSEMIDE 20 MG/2 ML VIAL IV ONE ×2 (11:05→11:59)
[2024-05-16] MEDS: VANCOMYCIN 1GM/250ML KIT 250 ML IV SCH (11:14)
[2024-05-16] MEDS: FUROSEMIDE 20 MG/2 ML VIAL ONE (11:58)
--- NOTE | 2024-05-16 13:50 | ECG ---
[facility] Test Date: 2024-05-15 Test Time: 15:23:56 Pat Name: CRIS MILLER Department: Room: [address] [place] [address] A Gender: F Private Duty Aide: : 1955 Requested By: VERONIKA GRUBER Order Number: [id number] Reading MD: Jerilyn Obregon Measurements Intervals [place] Rate: 91 P: 0 WV: 0 QRS: 86 QRSD: 96 T: -50 QT: 348 QTc: 428 Interpretive Statements Atrial fibrillation ST & T wave abnormality, consider inferolateral ischemia or digitalis effect Electronically Signed On 05-17-2024 9:46:43 PST by Jerilyn Obregon Please click the below link to view image of tracing.
[2024-05-16] MEDS ORDERED: BISACODYL 10 MG RECT SUPP PR PRN (14:45)
--- NOTE | 2024-05-16 14:49 | MEDREC ---
[facility] Intervention Section I [facility] Intervention: Deescalate AB based on CS (THE FINAL RESPIRATORY AND BLOOD CULTURE SHOWED NO GROWTH. PLEASE DISCONTINUE ZOSYN BASED ON FINAL URINE CULTURE RESULT OF ENTEROCOCCUS FAECALIS ) NATTY GARCIA May 16, 2024 14:49
[2024-05-16] MEDS: BISACODYL 10 MG RECT SUPP PR ONE (15:29)
--- NOTE | 2024-05-16 15:43 | DVHPNRES ---
Progress Note Date Seen: May 16, 2024 Resident Creating Document: GABRIELA VERONICA RESIDENT Medical Necessity Reason Pt with a Central, PICC or Fol: Yes The following are medically ne: Central Line, Shaw Catheter Subjective Review of Systems CRIS MILLER is a 68-year-old female with a PMH of CAD, HTN, dyslipidemia, CKD, dementia and seizure presented to the ED with the chief complaints of altered level of consciousness. Patient seen and examined at the bedside. Unable to obtain ROS due to patient clinical status. Patient extubated today afternoon, no signs of respiratory distress noted, currently on 2 L oxygen NC, continuously monitoring for distress. changed antibiotics to Unasyn and doxycycline based on culture. Patient reports: No new complaints Objective vital signs Vital Sign Date Time Temp Pulse Resp B/P (MAP) Pulse Ox O2 Delivery O2 Flow Rate FiO2 05/16/24 14:00 113 05/16/24 14:00 10 98 Mechanical Ventilator+ 30 30 05/16/24 13:15 143/71 (95) 05/16/24 12:50 6.0 05/16/24 12:00 98.0 98.0 Total Intake and Output 05/15/24 05/15/24 05/16/24 15:00 23:00 07:00 Intake Total 200 ml 227.313 ml 446.004 ml Output Total 350 ml 450 ml Balance 200 ml -122.687 ml -3.996 ml medications Current Medications Medications Dose Ordered Sig/Johan Route Start Time Stop Time Status Last Admin Dose Admin Propofol 100 ml @ 2.313 mls/ hr Q24H IV 05/11/24 05:00 05/15/24 22:16 2.313 MLS/HR Midazolam HCl 50 ml @ 1 mls/hr Q24H IV 05/11/24 05:00 05/14/24 02:56 3 MLS/HR Vancomycin HCl 0 ml @ 0 mls/hr UD IV 05/11/24 12:45 Pantoprazole Sodium 40 mg DAILY IV 05/13/24 10:00 05/16/24 09:27 40 MG Piperacillin Sod/ Tazobactam Sod 100 ml @ 25 mls/hr Q8HR IV 05/12/24 22:00 05/16/24 13:43 25 MLS/HR Enteral Nutritional Formula 1,000 ml 30ML/HR GT 05/12/24 23:00 05/15/24 17:03 1,000 ML Docusate Sodium 100 mg BID GT 05/13/24 10:00 05/15/24 21:43 100 MG Norepinephrine Bitartrate 250 ml @ 0.938 mls/ hr Q24H IV 05/13/24 15:15 05/13/24 18:03 2.813 MLS/HR Mupirocin 1 applic BID EACHNOSTRI 05/13/24 17:00 05/18/24 16:59 05/16/24 10:00 1 APPLIC Levetiracetam 500 mg BID NG 05/13/24 22:00 05/15/24 21:43 500 MG Lorazepam 1 mg Q5MINP PRN IV 05/14/24 08:45 Lorazepam 1 mg Q4HPRN PRN IV 05/14/24 16:30 05/15/24 12:04 1 MG Fentanyl Citrate 250 ml @ 2.5 mls/hr Q24H IV 05/15/24 17:45 05/15/24 18:37 2.5 MLS/HR Dexmedetomidine HCl 400 mcg/ Dextrose 100 ml @ 3.41 mls/hr Q24H IV 05/15/24 17:45 Hydralazine HCl 10 mg Q6HP PRN IV 05/16/24 09:15 05/16/24 09:28 10 MG Vancomycin HCl 250 ml @ 250 mls/hr DAILY@1100 IV 05/16/24 11:00 05/16/24 11:14 250 MLS/HR Bisacodyl 10 mg QHSP PRN [place] 05/16/24 14:45 Examination Pt is lying on bed, General Appearance: Alert, awake, extubated, mildly lethargic HEENT: Atraumatic, Mucous membranes moist/pink Respiratory: Clear to auscultation, Normal air movement, No added sounds Cardiovascular: Regular rate, Normal S1, Normal S2, No murmurs Abdominal: Active bowel sounds, Soft, no distension, no hepatosplenomegaly Extremities: Trace edema, no cyanosis, palpable pulses Skin: No Significant rash, except past surgical scars Neuro: pupils are reactive, limited exam due to clinical status laboratory and microbiology Laboratory Tests 05/16/24 03:05 Test 05/16/24 03:05 Range/Units Serum Glucose 109 H 74-106 mg/dL Microbiology Date/Time Source Procedure Growth Status 05/12/24 00:00 Nose MRSA Screen - Final Methicillin Resistant S.aureus Complete 05/11/24 06:22 Sputum Expectorated Sputum Gram Stain - Final Complete 05/11/24 06:22 Sputum Expectorated Sputum Respiratory Culture - Final Complete 05/11/24 05:44 Blood Blood Culture - Final NO GROWTH AFTER 5 DAYS OF INCUBATION. Complete 05/11/24 05:26 Urine - [place] Urine Culture - Final Enterococcus faecalis Complete Labs and/or images reviewed: Labs reviewed by me, Image(s) reviewed by me Problem List/Assessment/Plan Problem List/Assessment/Plan NEUROLOGY # acute toxic and metabolic encephalopathy - CT showed no acute intracranial abnormalities # history of seizure disorder - seizure precautions # dementia - precautions to avoid delirium CARDIOVASCULAR # Septic shock likely due to pneumonia/??MRSA # Hypothermia induced bradycardia # ? acute on chronic diastolic heart failure # Hypomagnesemia # HX hypertension # Dyslipidemia, - ordered pancultures, - monitor lab - Levophed, dopamine, Versed, Diprivan on 05/11, currently off from all 05/14 - today patient again back on fentanyl and Precedex - echo showed LVEF 50% with grade 1 diastolic dysfunction - urine culture showing Enterococcus faecalis - vancomycin and Zosyn DC 05/16 - Changed antibiotics based on culture to Unasyn and doxycycline 05/16 - stop ivf RESPIRATORY # Acute hypoxic respiratory failure likely multifocal pneumonia/ lobar pneumonia/? MRSA # Acute Gram-positive /negative bacterial PNA / ?MRSA / ?Pseudomanal PNA # septic shock # moderate pleural effusion # Atelectasis # MRSA nares positive - ordered pancultures, pending - ABG reviewed, CXR dialy - chest CT showed multifocal pneumonia with left lower lobe pneumonia, pleural effusion - urine culture showing Enterococcus faecalis - vancomycin and Zosyn DC 05/16 - Changed antibiotics based on culture to Unasyn and doxycycline 05/16 - extubated 05/16. - ordered rapid flu test,negative GI/LIVER - PUD prophylaxis, Protonix /KIDNEY/METABOLIC # Acute complicated UTI - urine culture showing Enterococcus faecalis - vancomycin and Zosyn DC 05/16 - Changed antibiotics based on culture to Unasyn and doxycycline 05/16 # Hypomagnesemia - Monitor renal function - Monitor electrolytes. Supplement as necessary. - Monitor ins and outs. - Magnesium supplementation ENDO MSK HEME # thrombocytopenia - monitor lab - hold Lovenox # Ruleout DVT - Ordered scan, pending ID # Acute Gram-positive /negative bacterial PNA/ ?MRSA / ?Pseudomanal PNA # septic shock - ordered pancultures, pending # Acute complicated UTI - urine culture showing Enterococcus faecalis - vancomycin and Zosyn DC 05/16 - Changed antibiotics based on culture to Unasyn and doxycycline 05/16 SKIN LINES Right femoral vein catheter 0n 05/11 Shaw catheter DRIPS Levophed, dopamine, Versed, Diprivan off from all 05/14. NUTRITION First Swallow eval if pass then add pureed diet Goals of care/advance care planning; FULL CODE; discussed on for 27 minutes. PUD prophylaxis: Pantoprazole DVT prophylaxis: HOLD Lovenox Critical care time including chart review, discussing with the patient's family(son Anthony) excluding procedures: 54 minutes Patient is status was updated to her son Anthony Case discussed with Dr. Bowman. Extubated 05/16 Plan discussed with: Patient, Son My Orders My Orders Orders - GABRIELA VERONICA RESIDENT Procedure Category Date Status Time Tap Water Enema ORDERS 05/15/24 Transmitted 17:33 Fentanyl Drip PHA 05/15/24 In Process 2500mcg/250mlns 17:45 Rass Sedation Scale IGNACIO 05/15/24 In Process 17:38 D5w 5% (Dextrose 5%) PHA 05/15/24 In Process W/Dexmedetomidine 17:45 Cpap Trial For Am ORDERS 05/15/24 Transmitted 17:40 Dietary Evaluation Review Comments: Increase Jevity to 50ml/hr,(67 gpro, 1440 kcal) adjust as rate tolerated. Expected Outcomes/Goals: improved protein nutrition, healed wounds, gradual weight loss GABRIELA VERONICA RESIDENT May 16, 2024 15:43 MARCUS BOWMAN MD May 19, 2024 15:13
[2024-05-16 15:54] LABS: Base Excess -0.8 mmol/L (-2.0-3.0)
[2024-05-16] MEDS: DOXYCYCLINE 100MG/100ML 100 ML IV SCH (16:24)
[2024-05-16 17:30] LABS: Chloride 107 mmol/L (98-107); Sodium 141 mmol/L (136-145)
[2024-05-16 17:31] LABS: Anion Gap 11 (5-15); Calcium 9.3 mg/dL (8.7-10.4); Carbon Dioxide 23 mmol/L (20-31)
[2024-05-16 17:36] LABS: BUN/Creatinine Ratio 16.8 (10.0-20.0); Blood Urea Nitrogen 17 mg/dL (9-23); Glucose 97 mg/dL (74-106)
[2024-05-16 17:37] LABS: Magnesium 1.6 mg/dL (1.6-2.6)
[2024-05-16] MEDS: AMPICILLIN & SULBACTAM SODIUM 3 GM in SODIUM CHL 0.9% 100 ML IV SCH (18:20)
[2024-05-16 18:22] LABS: Potassium 3.3 mmol/L (3.5-5.1)
[2024-05-17] VITALS (41 sets, daily range): BP systolic 123–186; BP diastolic 49–91; PULSE 90–105; RESP 11–24; TEMP 97.7–98.6; O2SAT 94–100
[2024-05-17 03:58] LABS: Basophils # (auto) 0 10 ^3/uL (0-0.2); Basophils % (auto) 0.3 % (0.0-2.0); Eosinophils # (auto) 0.2 10 ^3/uL (0-0.8); Eosinophils % (auto) 2.3 % (0.0-7.0); Hematocrit 28.8 % (36.0-46.0); Hemoglobin 9.6 g/dL (12.2-16.2); Lymphocytes # (auto) 0.8 10 ^3/uL (0.4-5.4); Lymphocytes % (auto) 9.2 % (10.0-50.0); Mean Corpuscular Hemoglobin 31.6 pg (28.0-32.0); Mean Corpuscular Hgb Conc. 33.3 g/dL (32.0-36.0); Monocytes # (auto) 0.7 10 ^3/uL (0-1.3); Monocytes % (auto) 8.2 % (0.0-12.0); Platelet Count (auto) 142 10^3/uL (140-450); Red Blood Cells 3.03 10^6/uL (4.0-5.20); Red Cell Distribution Width 15.7 % (11.8-14.3); White Blood Cell 8.8 10^3/uL (4.4-10.8)
[2024-05-17 04:24] LABS: Alanine Aminotransferase 38 U/L (7-40); Albumin 3.6 g/dL (3.2-4.8); Anion Gap 11 (5-15); Aspartate Aminotransferase 22 U/L (13-40); BUN/Creatinine Ratio 15.7 (10.0-20.0); Blood Urea Nitrogen 13 mg/dL (9-23); Calcium 10.1 mg/dL (8.7-10.4); Carbon Dioxide 24 mmol/L (20-31); Glucose 100 mg/dL (74-106); Magnesium 1.9 mg/dL (1.6-2.6); Sodium 142 mmol/L (136-145)
[2024-05-17 04:25] LABS: Alkaline Phosphatase 202 U/L (46-116); Bilirubin, Total 0.5 mg/dL (0.2-1.0); Chloride 107 mmol/L (98-107); Potassium 3.2 mmol/L (3.5-5.1)
--- NOTE | 2024-05-17 06:39 | DVH ---
CHEST RADIOGRAPH Indication: pna Technique: Single frontal view of the chest was obtained Comparison: XY CHEST XRAY 1 VIEW on DOS: 05/16/24, XY CHEST XRAY 1 VIEW on DOS: 05/15/24, XY CHEST XRAY 1 VIEW on DOS: 05/14/24 IMPRESSION: The heart appears stable in size. Patchy airspace opacity in the right lower lung appear similar to slightly increased. Pulmonary vascular congestion is mild, slightly increased. Possible small pleur al effusion. No discrete pneumothorax.
[2024-05-17] MEDS: MAGNESIUM SULFATE 1GM/100ML 100 ML IV ONE (11:22)
[2024-05-17] MEDS: POTASSIUM EFFERVESENT TAB 25 MEQ PO ONE (11:29)
[2024-05-17] MEDS: POTASSIUM CHL 20MEQ/100ML 100 ML IV SCH (11:50)
--- NOTE | 2024-05-17 11:51 | ECG ---
[facility] Test Date: 2024-05-16 Test Time: 15:58:55 Pat Name: CRIS MILLER Department: Room: [facility] Gender: F Hospital Cook: : 1955 Requested By: VERONIKA GRUBER Order Number: [id number] Reading MD: Jerilyn Obregon Measurements Intervals [place] Rate: 108 P: 61 VT: 164 QRS: 42 QRSD: 100 T: -33 QT: 332 QTc: 444 Interpretive Statements Sinus tachycardia Possible Left atrial enlargement ST & T wave abnormality, consider inferior ischemia LVH with secondary repolarization abnormality Electronically Signed On 05-18-2024 9:54:13 PST by Jerilyn Obregon Please click the below link to view image of tracing.
--- NOTE | 2024-05-17 14:23 | DVHPN2 ---
Subjective Confused Reviewed: Care Plan, H&P, Labs, Medications, Previous Orders, Radiology, Other Changes from previous H/P or p: Changes Objective Vitals Vital Signs Date Time Temp Pulse Resp B/P (MAP) Pulse Ox O2 Delivery O2 Flow Rate FiO2 05/17/24 13:00 101 18 163/80 (107) 98 05/17/24 12:00 Nasal Cannula* 2 28 05/17/24 11:30 97.7 97.7 Intake/Output Intake and Output 05/17/24 07:00 Intake Total 1347.436 ml Output Total 3150 ml Balance -1802.564 ml Intake Oral 400 ml IV Total 947.436 ml Output Urine Total 3150 ml # Bowel Movements 2 General Appearance: Other (Confused) HEENT: Atraumatic Lungs: Other (Decreased air entry bilateral with a scattered crackles) Cardiovascular: Regular rate, Normal S1, Normal S2 Abdomen: Normal bowel sounds, Soft, No tenderness Genitourinary: Other (Shaw's catheter) Neuro: Normal speech, Cranial nerves 3-12 NL, Other (Confused) Psych/Mental Status: Other (Confused) Medications Current Medications Medications Dose Ordered Sig/Johan Route Start Time Stop Time Status Last Admin Dose Admin Pantoprazole Sodium 40 mg DAILY IV 05/13/24 10:00 05/17/24 11:24 40 MG Docusate Sodium 100 mg BID GT 05/13/24 10:00 05/17/24 11:28 100 MG Mupirocin 1 applic BID EACHNOSTRI 05/13/24 17:00 05/18/24 16:59 05/17/24 11:51 1 APPLIC Levetiracetam 500 mg BID NG 05/13/24 22:00 05/17/24 11:29 500 MG Lorazepam 1 mg Q5MINP PRN IV 05/14/24 08:45 Lorazepam 1 mg Q4HPRN PRN IV 05/14/24 16:30 05/15/24 12:04 1 MG Bisacodyl 10 mg QHSP PRN GA 05/16/24 14:45 Ampicillin Sodium/ Sulbactam Sodium 3 gm/Sodium Chloride 100 ml @ 100 mls/hr Q6HR IV 05/16/24 18:00 05/17/24 12:12 100 MLS/HR Doxycycline Hyclate 100 ml @ 50 mls/hr Q12H IV 05/16/24 16:00 05/17/24 04:39 50 MLS/HR Hydralazine HCl 25 mg Q8HR PO 05/17/24 14:00 Metoprolol Tartrate 25 mg BID PO 05/17/24 22:00 Laboratory Results Laboratory Tests 05/17/24 03:25 Chemistry Test 05/16/24 17:01 05/17/24 03:25 Calcium Level 9.3 mg/dL (8.7-10.4) 10.1 mg/dL (8.7-10.4) Magnesium Level 1.6 mg/dL (1.6-2.6) 1.9 mg/dL (1.6-2.6) Albumin 3.6 g/dL (3.2-4.8) Total Protein 6.0 g/dL (5.7-8.2) LFT Test 05/17/24 03:25 Alanine Aminotransferase (ALT) 38 U/L (7-40) Alkaline Phosphatase 202 U/L (46-116) H Aspartate Amino Transferase (AST) 22 U/L (13-40) Total Bilirubin 0.5 mg/dL (0.2-1.0) Urinalysis Test 05/11/24 05:26 Urine Color Yellow (Yellow) Urine Clarity Clear (Clear) Urine pH 8.0 (5.0-9.0) Urine Specific [place] 1.020 (1.001-1.035) Urine Protein 1+ (Negative) H Urine Ketones Negative (Negative) Urine Blood Negative /uL (Negative) Urine Nitrite Negative (Negative) Urine Bilirubin Negative (Negative) Urine Urobilinogen Normal mg/dL (Negative) Urine Leukocyte Esterase Negative /uL (Negative) Urine RBC 1 /hpf (0 - 4) Urine WBC 6 /hpf (0 - 5) Urine Squamous Epithelial Cells Few /hpf (<5) Urine Bacteria None seen /hpf (None Seen) Urine Glucose Normal mg/dL (Normal) Blood Gas Results Test 05/16/24 15:46 Arterial Blood pH 7.478 (7.350-7.450) FiO2 % 28.0 Microbiology Microbiology Date/Time Source Procedure Growth Status 05/12/24 00:00 Nose MRSA Screen - Final Methicillin Resistant S.aureus Complete 05/11/24 06:22 Sputum Expectorated Sputum Gram Stain - Final Complete 05/11/24 06:22 Sputum Expectorated Sputum Respiratory Culture - Final Complete 05/11/24 05:44 Blood Blood Culture - Final NO GROWTH AFTER 5 DAYS OF INCUBATION. Complete 05/11/24 05:26 Urine - [place] Urine Culture - Final Enterococcus faecalis Complete Labs and/or images reviewed: Labs reviewed by me, Image(s) reviewed by me Assessment/Plan Assessment/Plan Covering Dr. Pugh: #Acute hypoxic respiratory failure due to MRSA pneumonia; status post intubation and mechanical ventilation; currently on oxygen therapy via nasal cannula; reviewed available ABGs and chest x-ray; pulmonology is following; continue monitoring #Septic shock with lactic acidosis and leukocytosis; due to E coli UTI and MRSA pneumonia; off IV vasopressors; continue broad-spectrum IV antibiotics; reviewed available cultures; continue monitoring #Acute metabolic/toxic encephalopathy in the setting of dementia; currently confused; one-to-one sitter; continue monitoring #Seizures disorder; continue antiseizure medications; seizures precautions; continue monitoring #ADALBERTO; vasomotor nephropathy in the setting of septic shock; avoid nephrotoxic agents; continue monitoring #Electrolyte disturbances; correct/replace electrolytes as indicated; continue monitoring #Normocytic anemia; most likely inflammatory; no signs/symptoms of active bleeding; continue monitoring Downgraded the patient from ICU/LESLIE level of care. Goals of care discussed with the patient's son for 20 minutes; full code. 66 minutes of critical care time. Late Entry. This medical document was created using an electronic medical record system with computerized dictation system. Although this document has been carefully reviewed, there might still be some phonetic and typographical errors. These areas are purely typographical due to imperfections of the software programs, and do not reflect any compromise in the patient's medical care. Plan discussed with: Son, Other (Nurse) My Orders Orders - SARA JOHN MD Procedure Category Date Status Time Complete Blood Count LAB 05/18/24 Verified 04:00 Basic Metabolic Panel LAB 05/18/24 Verified 04:00 Magnesium LAB 05/18/24 Verified 04:00 Hydralazine Hcl PHA 05/17/24 In Process Tablet (Apresoline 14:00 Metoprolol Tartrate PHA 05/17/24 In Process Tablet (Lopressor Ta 22:00 Date of Service: May 17, 2024 Billing Provider: SARA JOHN MD Common Visit Codes: 03866-[id number] CARE 30-74 MIN (66 minutes) Secondary Visit Codes: 81604-ONADOTQL CARE PLAN 30 MINUTES (20 minutes) SARA JOHN MD May 17, 2024 14:23
[2024-05-17] MEDS: hydrALAZINE HCL 25 MG TAB PO SCH (14:28)
[2024-05-17] MEDS: METOPROLOL TARTRATE 25 MG TAB PO SCH (21:17)
--- NOTE | 2024-05-17 23:31 | DVHPN2 ---
Progress Note - Dictate Date Seen: May 17, 2024 Medical Necessity Reason Pt with a Central, PICC or Fol: Yes The following are medically ne: Central Line, Villalba Catheter Reason for villalba catheter: Strict I&O Subjective Patient seen and examined at bedside. Remains on supplemental oxygen Overnight events reviewed. vital signs Vital Sign Date Time Temp Pulse Resp B/P (MAP) Pulse Ox O2 Delivery O2 Flow Rate FiO2 05/17/24 22:00 21 94 Nasal Cannula* 2 28 05/17/24 22:00 90 142/67 (92) 05/17/24 20:00 98.5 98.5 Total Intake and Output 05/16/24 05/16/24 05/17/24 15:00 23:00 07:00 Intake Total 436.096 ml 311.34 ml 600 ml Output Total 2250 ml 900 ml Balance 436.096 ml -1938.66 ml -300 ml medications Current Medications Medications Dose Ordered Sig/Johan Route Start Time Stop Time Status Last Admin Dose Admin Pantoprazole Sodium 40 mg DAILY IV 05/13/24 10:00 05/17/24 11:24 40 MG Docusate Sodium 100 mg BID GT 05/13/24 10:00 05/17/24 11:28 100 MG Mupirocin 1 applic BID EACHNOSTRI 05/13/24 17:00 05/18/24 16:59 05/17/24 21:18 1 APPLIC Levetiracetam 500 mg BID NG 05/13/24 22:00 05/17/24 21:16 500 MG Lorazepam 1 mg Q5MINP PRN IV 05/14/24 08:45 Lorazepam 1 mg Q4HPRN PRN IV 05/14/24 16:30 05/15/24 12:04 1 MG Bisacodyl 10 mg QHSP PRN LA 05/16/24 14:45 Ampicillin Sodium/ Sulbactam Sodium 3 gm/Sodium Chloride 100 ml @ 100 mls/hr Q6HR IV 05/16/24 18:00 05/17/24 18:02 100 MLS/HR Doxycycline Hyclate 100 ml @ 50 mls/hr Q12H IV 05/16/24 16:00 05/17/24 17:26 50 MLS/HR Hydralazine HCl 25 mg Q8HR PO 05/17/24 14:00 05/17/24 21:16 25 MG Metoprolol Tartrate 25 mg BID PO 05/17/24 22:00 05/17/24 21:17 25 MG objective Gen.: Patient lying in bed in no apparent distress. On supplemental oxygen. Head: Normocephalic, atraumatic. Eyes: EOMI/PERRLA. Ears: Normal hearing. Normal anatomy. Neck/trachea: Trachea midline, supple. Nose: Normal external anatomy. Mouth: Moist mucous membranes. Chest: Decreased air entry bilaterally. No wheezing or rhonchi. Cardiovascular: Positive S1, positive S2. Regular rate and rhythm. Abdomen: Positive bowel sounds in all 4 quadrants. Soft, non-tender, non- distended. : Deferred. Rectal: Deferred. Skin: Warm, dry. Intact. Extremities: 2+ radial pulses bilaterally. No lower extremity edema. Neuro: Awake, alert, oriented x3. No gross motor or sensory deficits. Cranial nerves II through XII intact. Gait not assessed. laboratory and microbiology Laboratory Tests 05/17/24 03:25 Test 05/17/24 03:25 Range/Units Serum Glucose 100 74-106 mg/dL Assessment/Plan Impression: Acute hypoxic respiratory failure Pneumonia, likely gram negative Pleural effusion Atelectasis Plan: Supplemental oxygen 2 LPM NC Taper O2 as tolerated Titrate to keep O2 sats above 92%. CXR reviewed, demonstrates multifocal opacities Incentive spirometry Head of bed elevation Aspiration precautions Pressors if necessary for hemodynamic support Titrate to keep mean arterial pressure greater than 65 mmHg. Continue antibiotics. Follow up echocardiogram Cardiology recs appreciated Monitor renal function Monitor electrolytes. Supplement as necessary. Monitor ins and outs. Patient is stable for downgrade with the [employer] Jar GI prophylaxis. DVT prophylaxis. Prognosis: Poor given patient's multiple co-morbidities. Condition: Critical Rest of plan per hospitalist and other consultants. A total of 35 minutes of critical care time was spent reviewing the patient record, examining the patient, making a diagnostic and therapeutic plan, discussing this plan with the medical personnel, following up on diagnostic studies and following the patient for clinical stability excluding any and all procedures. At least 50% of this time was spent in direct, [id number] contact. Thank you, SANDRA Garcia, for allowing me to participate in this patient's care. Further recommendations will depend on the patient's clinical course. Please do not hesitate to contact me if you have any questions or concerns. This medical document was created using an electronic medical record system with [employer] computerized dictation system. Although these documentations are being carefully reviewed, there may still be some phonetic and typographical changes. The errors are purely typographical, due to imperfection on the software program, and do not reflect any compromise in the patient's medical care. Dietary Evaluation Review Comments: Increase Jevity to 50ml/hr,(67 gpro, 1440 kcal) adjust as rate tolerated. Expected Outcomes/Goals: improved protein nutrition, healed wounds, gradual weight loss Plan discussed with: Other (KAMERON Houser) Critical Care Time(min): 35 ROSE SEQUEIRA MD May 17, 2024 23:31
[2024-05-18] VITALS (10 sets, daily range): BP systolic 132–170; BP diastolic 62–88; PULSE 77–98; RESP 14–20; TEMP 97.6–98.8; O2SAT 89–98
[2024-05-18 07:21] LABS: Basophils # (auto) 0 10 ^3/uL (0-0.2); Basophils % (auto) 0.3 % (0.0-2.0); Eosinophils # (auto) 0.4 10 ^3/uL (0-0.8); Eosinophils % (auto) 4.8 % (0.0-7.0); Hemoglobin 8.6 g/dL (12.2-16.2); Lymphocytes # (auto) 1.5 10 ^3/uL (0.4-5.4); Lymphocytes % (auto) 17.3 % (10.0-50.0); Mean Corpuscular Hemoglobin 31.5 pg (28.0-32.0); Mean Corpuscular Hgb Conc. 33.2 g/dL (32.0-36.0); Mean Corpuscular Volume 94.8 fL (80.0-100.0); Monocytes # (auto) 0.6 10 ^3/uL (0-1.3); Monocytes % (auto) 7.1 % (0.0-12.0); Neutrophils % (auto) 70.5 % (37.0-80.0); Platelet Count (auto) 231 10^3/uL (140-450); Red Blood Cells 2.75 10^6/uL (4.0-5.20); Red Cell Distribution Width 16.3 % (11.8-14.3); White Blood Cell 8.5 10^3/uL (4.4-10.8)
[2024-05-18 07:29] LABS: Anion Gap 9 (5-15); Calcium 9.9 mg/dL (8.7-10.4); Carbon Dioxide 26 mmol/L (20-31); Chloride 105 mmol/L (98-107); Sodium 140 mmol/L (136-145)
[2024-05-18 07:34] LABS: Glucose 87 mg/dL (74-106)
[2024-05-18 07:35] LABS: BUN/Creatinine Ratio 14.3 (10.0-20.0); Blood Urea Nitrogen 11 mg/dL (9-23); Magnesium 1.7 mg/dL (1.6-2.6)
--- NOTE | 2024-05-18 17:01 | DVHPN2 ---
Subjective Confused Reviewed: Care Plan, H&P, Labs, Medications, Previous Orders, Radiology, Other (Consultations) Changes from previous H/P or p: No Changes Objective Vitals Vital Signs Date Time Temp Pulse Resp B/P (MAP) Pulse Ox O2 Delivery O2 Flow Rate FiO2 05/18/24 16:44 97.6 77 14 141/78 (99) 96 97.6 05/18/24 08:00 Nasal Cannula* 2 28 Intake/Output Intake and Output 05/18/24 07:00 Intake Total 575 ml Output Total 225 ml Balance 350 ml Intake Oral 0 ml IV Total 575 ml Output Urine Total 225 ml # Bowel Movements 1 General Appearance: Other (Confused) HEENT: Atraumatic Lungs: Other (Decreased air entry bilateral with a scattered crackles) Cardiovascular: Regular rate, Normal S1, Normal S2 Abdomen: Normal bowel sounds, Soft, No tenderness Genitourinary: Other (Shaw's catheter) Neuro: Normal speech, Cranial nerves 3-12 NL, Other (Confused) Psych/Mental Status: Other (Confused) Medications Current Medications Medications Dose Ordered Sig/Johan Route Start Time Stop Time Status Last Admin Dose Admin Pantoprazole Sodium 40 mg DAILY IV 05/13/24 10:00 05/18/24 10:01 40 MG Docusate Sodium 100 mg BID GT 05/13/24 10:00 05/18/24 09:59 100 MG Mupirocin 1 applic BID EACHNOSTRI 05/13/24 17:00 05/18/24 16:59 05/17/24 21:18 1 APPLIC Levetiracetam 500 mg BID NG 05/13/24 22:00 05/18/24 09:59 500 MG Lorazepam 1 mg Q5MINP PRN IV 05/14/24 08:45 Lorazepam 1 mg Q4HPRN PRN IV 05/14/24 16:30 05/15/24 12:04 1 MG Bisacodyl 10 mg QHSP PRN SD 05/16/24 14:45 Ampicillin Sodium/ Sulbactam Sodium 3 gm/Sodium Chloride 100 ml @ 100 mls/hr Q6HR IV 05/16/24 18:00 05/18/24 06:51 100 MLS/HR Doxycycline Hyclate 100 ml @ 50 mls/hr Q12H IV 05/16/24 16:00 05/18/24 03:26 50 MLS/HR Hydralazine HCl 25 mg Q8HR PO 05/17/24 14:00 05/18/24 14:28 25 MG Metoprolol Tartrate 25 mg BID PO 05/17/24 22:00 05/18/24 10:00 25 MG Laboratory Results Laboratory Tests 05/18/24 06:28 Chemistry Test 05/18/24 06:28 Calcium Level 9.9 mg/dL (8.7-10.4) Magnesium Level 1.7 mg/dL (1.6-2.6) Urinalysis Test 05/11/24 05:26 Urine Color Yellow (Yellow) Urine Clarity Clear (Clear) Urine pH 8.0 (5.0-9.0) Urine Specific [place] 1.020 (1.001-1.035) Urine Protein 1+ (Negative) H Urine Ketones Negative (Negative) Urine Blood Negative /uL (Negative) Urine Nitrite Negative (Negative) Urine Bilirubin Negative (Negative) Urine Urobilinogen Normal mg/dL (Negative) Urine Leukocyte Esterase Negative /uL (Negative) Urine RBC 1 /hpf (0 - 4) Urine WBC 6 /hpf (0 - 5) Urine Squamous Epithelial Cells Few /hpf (<5) Urine Bacteria None seen /hpf (None Seen) Urine Glucose Normal mg/dL (Normal) Microbiology Microbiology Date/Time Source Procedure Growth Status 05/12/24 00:00 Nose MRSA Screen - Final Methicillin Resistant S.aureus Complete 05/11/24 06:22 Sputum Expectorated Sputum Gram Stain - Final Complete 05/11/24 06:22 Sputum Expectorated Sputum Respiratory Culture - Final Complete 05/11/24 05:44 Blood Blood Culture - Final NO GROWTH AFTER 5 DAYS OF INCUBATION. Complete 05/11/24 05:26 Urine - [place] Urine Culture - Final Enterococcus faecalis Complete Labs and/or images reviewed: Labs reviewed by me, Image(s) reviewed by me Assessment/Plan Assessment/Plan Covering Dr. Pugh: #Acute hypoxic respiratory failure due to MRSA pneumonia; status post intubation and mechanical ventilation; currently on oxygen therapy via nasal cannula; reviewed available ABGs and chest x-ray; pulmonology is following; continue monitoring #Septic shock with lactic acidosis and leukocytosis; due to E coli UTI and MRSA pneumonia; off IV vasopressors; continue broad-spectrum IV antibiotics; reviewed available cultures; continue monitoring #Acute metabolic/toxic encephalopathy in the setting of dementia; currently confused; one-to-one sitter; continue monitoring #Seizures disorder; continue antiseizure medications; seizures precautions; continue monitoring #ADALBERTO; vasomotor nephropathy in the setting of septic shock; avoid nephrotoxic agents; continue monitoring #Electrolyte disturbances; correct/replace electrolytes as indicated; continue monitoring #Normocytic anemia; most likely inflammatory; no signs/symptoms of active bleeding; continue monitoring Late Entry. This medical document was created using an electronic medical record system with computerized dictation system. Although this document has been carefully reviewed, there might still be some phonetic and typographical errors. These areas are purely typographical due to imperfections of the software programs, and do not reflect any compromise in the patient's medical care. Plan discussed with: Other (Nurse) My Orders Orders - SARA JOHN MD Procedure Category Date Status Time Complete Blood Count LAB 05/19/24 Verified 04:00 Comprehensive LAB 05/19/24 Verified Metabolic Panel 04:00 Magnesium LAB 05/19/24 Verified 04:00 Date of Service: May 18, 2024 Billing Provider: SARA JOHN MD Common Visit Codes: [id number] INP/OBS CARE(HIGH) SARA JOHN MD May 18, 2024 17:01
--- NOTE | 2024-05-18 23:02 | DVHPN2 ---
Progress Note - Dictate Date Seen: May 18, 2024 Medical Necessity Reason Pt with a Central, PICC or Fol: Yes The following are medically ne: Central Line, Villalba Catheter Reason for villalba catheter: Strict I&O Subjective Patient seen and examined at bedside. Remains on supplemental oxygen Overnight events reviewed. vital signs Vital Sign Date Time Temp Pulse Resp B/P (MAP) Pulse Ox O2 Delivery O2 Flow Rate FiO2 05/18/24 21:59 89 162/79 05/18/24 21:00 98.7 18 89 98.7 05/18/24 20:00 Nasal Cannula* 2 28 Total Intake and Output 05/17/24 05/17/24 05/18/24 15:00 23:00 07:00 Intake Total 200 ml 325 ml 50 ml Output Total 225 ml Balance 200 ml 100 ml 50 ml medications Current Medications Medications Dose Ordered Sig/Johan Route Start Time Stop Time Status Last Admin Dose Admin Pantoprazole Sodium 40 mg DAILY IV 05/13/24 10:00 05/18/24 10:01 40 MG Docusate Sodium 100 mg BID GT 05/13/24 10:00 05/18/24 09:59 100 MG Levetiracetam 500 mg BID NG 05/13/24 22:00 05/18/24 21:58 500 MG Lorazepam 1 mg Q5MINP PRN IV 05/14/24 08:45 Lorazepam 1 mg Q4HPRN PRN IV 05/14/24 16:30 05/15/24 12:04 1 MG Bisacodyl 10 mg QHSP PRN [place] 05/16/24 14:45 Ampicillin Sodium/ Sulbactam Sodium 3 gm/Sodium Chloride 100 ml @ 100 mls/hr Q6HR IV 05/16/24 18:00 05/18/24 18:32 100 MLS/HR Doxycycline Hyclate 100 ml @ 50 mls/hr Q12H IV 05/16/24 16:00 05/18/24 16:59 50 MLS/HR Hydralazine HCl 25 mg Q8HR PO 05/17/24 14:00 05/18/24 21:59 25 MG Metoprolol Tartrate 25 mg BID PO 05/17/24 22:00 05/18/24 21:59 25 MG objective Gen.: Patient lying in bed in no apparent distress. On supplemental oxygen. Head: Normocephalic, atraumatic. Eyes: EOMI/PERRLA. Ears: Normal hearing. Normal anatomy. Neck/trachea: Trachea midline, supple. Nose: Normal external anatomy. Mouth: Moist mucous membranes. Chest: Decreased air entry bilaterally. No wheezing or rhonchi. Cardiovascular: Positive S1, positive S2. Regular rate and rhythm. Abdomen: Positive bowel sounds in all 4 quadrants. Soft, non-tender, non- distended. : Deferred. Rectal: Deferred. Skin: Warm, dry. Intact. Extremities: 2+ radial pulses bilaterally. No lower extremity edema. Neuro: Awake, alert, oriented x3. No gross motor or sensory deficits. Cranial nerves II through XII intact. Gait not assessed. laboratory and microbiology Laboratory Tests 05/18/24 06:28 Test 05/18/24 06:28 Range/Units Serum Glucose 87 74-106 mg/dL Assessment/Plan Impression: Acute hypoxic respiratory failure Pneumonia, likely gram negative Pleural effusion Atelectasis Events: Remains on supplemental oxygen, 2 LPM NC Taper O2 as tolerated Continue antibiotics Incentive spirometry Head of bed elevation Aspiration precautions Seizure precautions - Keppra Sitter at bedside. Labs and imaging reviewed. Rest of plan as noted below. Plan: Supplemental oxygen Taper O2 as tolerated Incentive spirometry Head of bed elevation Aspiration precautions Pressors if necessary for hemodynamic support Titrate to keep mean arterial pressure greater than 65 mmHg. Continue antibiotics. Follow up echocardiogram Cardiology recs appreciated Monitor renal function Monitor electrolytes. Supplement as necessary. Monitor ins and outs. GI prophylaxis. DVT prophylaxis. Prognosis: Guarded given patient's multiple co-morbidities. Rest of plan per hospitalist and other consultants. Thank you, SANDRA Garcia, for allowing me to participate in this patient's care. Further recommendations will depend on the patient's clinical course. Please do not hesitate to contact me if you have any questions or concerns. This medical document was created using an electronic medical record system with [employer] dictation system. Although these documentations are being carefully reviewed, there may still be some phonetic and typographical changes. The errors are purely typographical, due to imperfection on the software program, and do not reflect any compromise in the patient's medical care. Dietary Evaluation Review Comments: Increase Jevity to 50ml/hr,(67 gpro, 1440 kcal) adjust as rate tolerated. Expected Outcomes/Goals: improved protein nutrition, healed wounds, gradual weight loss Plan discussed with: Patient, Other (KAMERON Sanchez) ROSE SEQUEIRA MD May 18, 2024 23:02
[2024-05-19] VITALS (7 sets, daily range): BP systolic 133–155; BP diastolic 56–72; PULSE 69–100; RESP 16–19; TEMP 97.5–98.2; O2SAT 90–97
[2024-05-19] MEDS ORDERED: amLODIPine BESYLATE 5 MG TAB PO ONE (00:30)
[2024-05-19] MEDS: hydrALAZINE HCL 20 MG/ML VL IV PRN (00:52)
[2024-05-19 07:19] LABS: Basophils # (auto) 0 10 ^3/uL (0-0.2); Hemoglobin 8.1 g/dL (12.2-16.2); Monocytes # (auto) 0.6 10 ^3/uL (0-1.3); Neutrophils # (auto) 2.9 10 ^3/uL (1.6-8.6); Nucleated Red Blood Cells % 0.1 %
[2024-05-19 07:23] LABS: Basophils % (auto) 0.8 % (0.0-2.0); Eosinophils # (auto) 0.4 10 ^3/uL (0-0.8); Eosinophils % (auto) 6.5 % (0.0-7.0); Hematocrit 24.1 % (36.0-46.0); Lymphocytes # (auto) 1.5 10 ^3/uL (0.4-5.4); Lymphocytes % (auto) 28.4 % (10.0-50.0); Mean Corpuscular Hemoglobin 31.8 pg (28.0-32.0); Mean Corpuscular Hgb Conc. 33.4 g/dL (32.0-36.0); Mean Corpuscular Volume 95.1 fL (80.0-100.0); Monocytes % (auto) 10.3 % (0.0-12.0); Platelet Count (auto) 330 10^3/uL (140-450); Red Blood Cells 2.54 10^6/uL (4.0-5.20); Red Cell Distribution Width 15.9 % (11.8-14.3); White Blood Cell 5.4 10^3/uL (4.4-10.8)
[2024-05-19 07:35] LABS: Alanine Aminotransferase 23 U/L (7-40); Albumin 3.4 g/dL (3.2-4.8); Anion Gap 9 (5-15); BUN/Creatinine Ratio 14.9 (10.0-20.0); Blood Urea Nitrogen 11 mg/dL (9-23); Calcium 9.7 mg/dL (8.7-10.4); Carbon Dioxide 26 mmol/L (20-31); Chloride 104 mmol/L (98-107); Glucose 90 mg/dL (74-106); Potassium 3.8 mmol/L (3.5-5.1); Sodium 139 mmol/L (136-145)
[2024-05-19 07:36] LABS: Bilirubin, Total 0.3 mg/dL (0.2-1.0)
[2024-05-19 07:43] LABS: Alkaline Phosphatase 143 U/L (46-116); Aspartate Aminotransferase 13 U/L (13-40); Magnesium 1.5 mg/dL (1.6-2.6); Total Protein 5.6 g/dL (5.7-8.2)
--- NOTE | 2024-05-19 09:34 | DVH ---
EXAM: XY CHEST XRAY 1 VIEW Indication: pna Technique: Single frontal view of the chest was obtained Comparison: XY CHEST XRAY 1 VIEW on DOS: 05/17/24, XY CHEST XRAY 1 VIEW on DOS: 05/16/24, XY CHEST XRAY 1 VIEW on DOS: 05/15/24, XY CHEST XRAY 1 VIEW on DOS: 05/14/24, XY CHEST XRAY 1 VIEW on DOS: 05/13/24 FINDINGS: Lines and Tubes: None Lungs: Diffuse interstitial opacities. Pleura: Possible trace left pleural effusion. No pneumothorax. Cardiomediastinal contours: Unremarkable Bones: No acute osseous abnormality. IMPRESSION: Diffuse interstitial opacities, similar in appearance compared to prior exam. Possible trace left pl eural effusion.
[2024-05-19] MEDS ORDERED: CLINIMIX PER PHARMACY 0 ML IV SCH (13:15)
[2024-05-19] MEDS: LORazepam 2MG/ML-1ML VIAL IV PRN (13:41)
[2024-05-19] MEDS ORDERED: MAGNESIUM SULFATE 1GM/100ML 100 ML IV SCH (14:00)
--- NOTE | 2024-05-19 14:25 | DVHPNRES ---
Progress Note Date Seen: May 19, 2024 Resident Creating Document: GABRIELA VERONICA RESIDENT Medical Necessity Reason Pt with a Central, PICC or Fol: Yes The following are medically ne: Central Line, Villalab Catheter Reason for villalba catheter: Strict I&O Subjective Review of Systems CRIS MILLER is a 68-year-old female with a PMH of CAD, HTN, dyslipidemia, CKD, dementia and seizure presented to the ED with the chief complaints of altered level of consciousness. Patient seen and examined at the bedside. Unable to obtain ROS due to patient clinical status. Patient is currently altered likely due to underlying dementia, discontinued oral feeds and ordered Clinimix. Continuously monitoring, currently on 2 L oxygen NC. Planning to transfer to [place], stable to transfer. Other Systems: Altered Objective vital signs Vital Sign Date Time Temp Pulse Resp B/P (MAP) Pulse Ox O2 Delivery O2 Flow Rate FiO2 05/19/24 10:28 137/60 05/19/24 10:00 100 05/19/24 09:00 97.5 18 90 97.5 05/18/24 20:00 Nasal Cannula* 2 28 Total Intake and Output 05/18/24 05/18/24 05/19/24 15:00 23:00 07:00 Intake Total 600 ml 500 ml Output Total 750 ml 350 ml Balance -150 ml 150 ml medications Current Medications Medications Dose Ordered Sig/Johan Route Start Time Stop Time Status Last Admin Dose Admin Pantoprazole Sodium 40 mg DAILY IV 05/13/24 10:00 05/19/24 09:18 40 MG Docusate Sodium 100 mg BID GT 05/13/24 10:00 05/18/24 09:59 100 MG Levetiracetam 500 mg BID NG 05/13/24 22:00 05/18/24 21:58 500 MG Lorazepam 1 mg Q5MINP PRN IV 05/14/24 08:45 05/19/24 13:41 1 MG Lorazepam 1 mg Q4HPRN PRN IV 05/14/24 16:30 05/15/24 12:04 1 MG Bisacodyl 10 mg QHSP PRN [place] 05/16/24 14:45 Ampicillin Sodium/ Sulbactam Sodium 3 gm/Sodium Chloride 100 ml @ 100 mls/hr Q6HR IV 05/16/24 18:00 05/19/24 13:40 100 MLS/HR Doxycycline Hyclate 100 ml @ 50 mls/hr Q12H IV 05/16/24 16:00 05/19/24 03:57 50 MLS/HR Hydralazine HCl 25 mg Q8HR PO 05/17/24 14:00 05/19/24 06:05 25 MG Metoprolol Tartrate 25 mg BID PO 05/17/24 22:00 05/18/24 21:59 25 MG Hydralazine HCl 10 mg Q6HP PRN IV 05/19/24 00:30 05/19/24 10:28 10 MG Amino Acids 0 ml @ 0 mls/hr PER PHARMACY IV 05/19/24 13:15 Magnesium Sulfate/ Dextrose 100 ml @ 100 mls/hr Q4H IV 05/19/24 14:00 05/19/24 18:01 Diagnostic Test (Pha) 1 strip Q6HR 05/20/24 00:00 Insulin Human Regular FOLLOW SLIDING SCALE Q6HR SC 05/20/24 00:00 Dextrose 50 ml UD IV 05/19/24 22:00 Amino Acids/ Electrolytes/ Dextrose 1,000 ml @ 41 mls/hr DAILY@2200 IV 05/19/24 22:00 Examination Pt is lying on bed, General Appearance: awake, oriented x0, lethargy HEENT: Atraumatic, Mucous membranes moist/pink Respiratory: Clear to auscultation, Normal air movement, mild crackles Cardiovascular: Regular rate, Normal S1, Normal S2, No murmurs Abdominal: Active bowel sounds, Soft, no distension, no hepatosplenomegaly Extremities: Trace edema, no cyanosis, palpable pulses Skin: No Significant rash, except past surgical scars Neuro: Altered, limited exam due to clinical status laboratory and microbiology Laboratory Tests 05/19/24 06:32 Test 05/19/24 06:32 Range/Units Serum Glucose 90 74-106 mg/dL Microbiology Date/Time Source Procedure Growth Status 05/12/24 00:00 Nose MRSA Screen - Final Methicillin Resistant S.aureus Complete 05/11/24 06:22 Sputum Expectorated Sputum Gram Stain - Final Complete 05/11/24 06:22 Sputum Expectorated Sputum Respiratory Culture - Final Complete 05/11/24 05:44 Blood Blood Culture - Final NO GROWTH AFTER 5 DAYS OF INCUBATION. Complete 05/11/24 05:26 Urine - Villal[place] Urine Culture - Final Enterococcus faecalis Complete Labs and/or images reviewed: Labs reviewed by me, Image(s) reviewed by me Problem List/Assessment/Plan Problem List/Assessment/Plan NEUROLOGY # acute toxic and metabolic encephalopathy - CT showed no acute intracranial abnormalities # history of seizure disorder - seizure precautions # dementia - precautions to avoid delirium CARDIOVASCULAR # Septic shock likely due to pneumonia/??MRSA # Hypothermia induced bradycardia # ? acute on chronic diastolic heart failure # Hypomagnesemia # HX hypertension # Dyslipidemia, - monitor lab - echo showed LVEF 50% with grade 1 diastolic dysfunction - ordered pancultures, blood and respiratory cultures no growth - urine culture showing Enterococcus faecalis - vancomycin and Zosyn DC 05/16 - Changed antibiotics based on culture to Unasyn and doxycycline 05/16 RESPIRATORY # Acute hypoxic respiratory failure likely multifocal pneumonia/ lobar pneumonia/? MRSA # Acute Gram-positive /negative bacterial PNA / ?MRSA / ?Pseudomanal PNA # septic shock # moderate pleural effusion # Atelectasis # MRSA nares positive - ordered pancultures, blood and respiratory cultures no growth - chest CT showed multifocal pneumonia with left lower lobe pneumonia, pleural effusion - urine culture showing Enterococcus faecalis - Changed antibiotics based on culture to Unasyn and doxycycline 05/16 - extubated 05/16. GI/LIVER - PUD prophylaxis, Protonix /KIDNEY/METABOLIC # Acute complicated UTI - urine culture showing Enterococcus faecalis - vancomycin and Zosyn DC 05/16 - Changed antibiotics based on culture to Unasyn and doxycycline 05/16 # Hypomagnesemia-resolved - Monitor renal function - Monitor electrolytes. Supplement as necessary. - Monitor ins and outs. - Magnesium supplementation ENDO MSK HEME # thrombocytopenia - monitor lab - hold Lovenox # Ruleout DVT - Ordered scan, pending ID # Acute Gram-positive /negative bacterial PNA/ ?MRSA / ?Pseudomanal PNA # septic shock - ordered pancultures, blood and respiratory cultures no growth # Acute complicated UTI - urine culture showing Enterococcus faecalis - vancomycin and Zosyn DC 05/16 - Changed antibiotics based on culture to Unasyn and doxycycline 05/16 SKIN LINES Right femoral vein catheter 0n 05/11 Villalba catheter DRIPS Levophed, dopamine, Versed, Diprivan off from all 05/14. NUTRITION Pureed diet Goals of care/advance care planning; FULL CODE; discussed on for 27 minutes. PUD prophylaxis: Pantoprazole DVT prophylaxis: HOLD Lovenox Critical care time including chart review, discussing with the patient's family(son Anthony) excluding procedures: 54 minutes Patient is status was updated to her son Anthony Case discussed with Dr. Carranza. Planning to transfer to [place], stable to transfer. Consulted social worker. Plan discussed with: Son Breonna Orders My Orders Orders - GABRIELA VERONICA Procedure Category Date Status Time Chest Xray 1 View XY 05/19/24 Resulted 08:19 Clinimix Per Pharmacy PHA 05/19/24 In Process 13:15 Magnesium Sulfate PHA 05/19/24 In Process 1gm/100ml 14:00 Glucose Blood PHA 05/20/24 In Process (Accu-Chek Comfort 00:00 Insulin R (Human) PHA 05/20/24 In Process (Insulin R) 00:00 Dextrose 50% Syringe PHA 05/19/24 In Process 22:00 Amino Acid Infusion PHA 05/19/24 In Process In D10w (Clinimix 4. 22:00 Comprehensive LAB 05/20/24 Verified Metabolic Panel 04:00 Magnesium LAB 05/20/24 Verified 04:00 Phosphorus LAB 05/20/24 Verified 04:00 Triglycerides LAB 05/20/24 Verified 04:00 Clinimix Per Pharmacy [email or web address] 05/19/24 In Process 22:00 Dietary Evaluation Review Comments: Increase Jevity to 50ml/hr,(67 gpro, 1440 kcal) adjust as rate tolerated. Expected Outcomes/Goals: improved protein nutrition, healed wounds, gradual weight loss Date of Service: May 19, 2024 Billing Provider: DANIEL CERVANTES MD Common Visit Codes: [id number] CARE 30-74 MIN GABRIELA VERONICA May 19, 2024 14:25 DANIEL CERVANTES MD May 20, 2024 16:37
--- NOTE | 2024-05-19 18:19 | DVHDSRES ---
Discharge Summary Date of Admission Resident Creating Document: GABRIELA VERONICA RESIDENT May 11, 2024 at 12:40 Date of Discharge: May 19, 2024 Admitting Diagnosis PNA Labs/Diagnostic Data: Laboratory Results Test 05/19/24 06:32 05/16/24 15:46 05/16/24 10:40 05/16/24 07:43 White Blood Count 5.4 10^3/uL (4.4-10.8) Red Blood Count 2.54 10^6/uL (4.0-5.20) Hemoglobin 8.1 g/dL (12.2-16.2) Hematocrit 24.1 % (36.0-46.0) Mean Corpuscular Volume 95.1 fL (80.0-100.0) Mean Corpuscular Hemoglobin 31.8 pg (28.0-32.0) Mean Corpuscular Hemoglobin Concent 33.4 g/dL (32.0-36.0) Red Cell Distribution Width 15.9 % (11.8-14.3) Platelet Count 330 10^3/uL (140-450) Mean Platelet Volume 7.4 fL (6.9-10.8) Neutrophils (%) (Auto) 54.0 % (37.0-80.0) Lymphocytes (%) (Auto) 28.4 % (10.0-50.0) Monocytes (%) (Auto) 10.3 % (0.0-12.0) Eosinophils (%) (Auto) 6.5 % (0.0-7.0) Basophils (%) (Auto) 0.8 % (0.0-2.0) Neutrophils # (Auto) 2.9 10 ^3/uL (1.6-8.6) Lymphocytes # (Auto) 1.5 10 ^3/uL (0.4-5.4) Monocytes # (Auto) 0.6 10 ^3/uL (0-1.3) Eosinophils # (Auto) 0.4 10 ^3/uL (0-0.8) Basophils # (Auto) 0 10 ^3/uL (0-0.2) Nucleated Red Blood Cells 0.1 % Sodium Level 139 mmol/L (136-145) Potassium Level 3.8 mmol/L (3.5-5.1) Chloride Level 104 mmol/L (98-107) Carbon Dioxide Level 26 mmol/L (20-31) Anion Gap 9 (5-15) Blood Urea Nitrogen 11 mg/dL (9-23) Creatinine 0.74 mg/dL (0.550-1.02) Glomerular Filtration Rate Calc 89 mL/min (>90) BUN/Creatinine Ratio 14.9 (10.0-20.0) Serum Glucose 90 mg/dL (74-106) Calcium Level 9.7 mg/dL (8.7-10.4) Phosphorus Level 3.1 mg/dL (2.4-5.1) Magnesium Level 1.5 mg/dL (1.6-2.6) Total Bilirubin 0.3 mg/dL (0.2-1.0) Aspartate Amino Transferase (AST) 13 U/L (13-40) Alanine Aminotransferase (ALT) 23 U/L (7-40) Alkaline Phosphatase 143 U/L (46-116) Total Protein 5.6 g/dL (5.7-8.2) Albumin 3.4 g/dL (3.2-4.8) Blood Gas Specimen Type Arterial Blood Gas Sample Site Right radial Blood Gas Patient Temperature 37.0 Arterial Blood Date Drawn [id number] Arterial Blood pH 7.478 (7.350-7.450) Arterial Blood Partial Pressure CO2 30.5 mmHg (32.0-45.0) Arterial Blood Partial Pressure O2 90.1 mmHg (83.0-108.0) Arterial Blood HCO3 22.1 mmol/L (21.0-28.0) Arterial Blood Oxygen Saturation 96.4 % (94.0-98.0) Arterial Blood Base Excess -0.8 mmol/L (-2.0-3.0) Arterial Blood Oxyhemoglobin 96.1 % (94.0-98.0) Arterial Blood Carboxyhemoglobin 0.0 % (0.5-1.5) Arterial Blood Methemoglobin 0.3 % (0.0-1.5) Yefri Test Yes Blood Gas Total Hemoglobin 10.50 g/dL (12.0-16.0) Blood Gas Liter Flow 2.00 Blood Gas Modality Nasal cannula FiO2 % 28.0 Blood Gas Pressure Support 8 Blood Gas PEEP or CPAP 5.0 Blood Gas Set Respiration Rate 16.0 Blood Gas Tidal Volume 450.0 Test 05/16/24 03:05 05/15/24 08:59 05/15/24 03:05 05/14/24 07:35 Random Vancomycin Level 13.4 ug/mL (5-10) Cortisol AM Sample 16.57 ug/dL (5.27-22.45) Vitamin B12 Level 1703 pg/mL (211-911) SARS-CoV-2 Antigen (Rapid) Negative (NEGATIVE) Test 05/13/24 03:05 05/12/24 19:22 05/12/24 16:42 05/11/24 08:15 Lactic Acid Level 0.9 mmol/L (0.4-2.0) Prothrombin Time 11.2 sec (9.3-11.8) Prothrombin Time INR 1.06 (0.9-1.15) Activated Partial Thromboplast Time 41.0 SEC (24.5-34.5) Influenza Type A Antigen Negative (Negative) Influenza Type B Antigen Negative (Negative) Troponin I High Sensitivity 23 ng/L (</=34) Test 05/11/24 07:26 05/11/24 05:30 05/11/24 05:26 POC Glucose 114 mg/dl (70-106) Hemoglobin A1c 5.4 % A1C (<5.7) B-Type Natriuretic Peptide 223.67 pg/mL (0-100) Triglycerides Level 115 mg/dL (< 150) Cholesterol Level 142 mg/dL (< 200) LDL Cholesterol 48 mg/dL (< 100) HDL Cholesterol 62 mg/dL (40-59) Lipase 24 U/L (12-53) Thyroid Stimulating Hormone (TSH) 2.40 uIU/mL (0.55-4.78) Plasma/Serum Blood Alcohol < 3.0 mg/dL (<10) Urine Color Yellow (Yellow) Urine Clarity Clear (Clear) Urine pH 8.0 (5.0-9.0) Urine Specific [place] 1.020 (1.001-1.035) Urine Protein 1+ (Negative) Urine Ketones Negative (Negative) Urine Blood Negative /uL (Negative) Urine Nitrite Negative (Negative) Urine Bilirubin Negative (Negative) Urine Urobilinogen Normal mg/dL (Negative) Urine Leukocyte Esterase Negative /uL (Negative) Urine RBC 1 /hpf (0 - 4) Urine WBC 6 /hpf (0 - 5) Urine Squamous Epithelial Cells Few /hpf (<5) Urine Bacteria None seen /hpf (None Seen) Urine Glucose Normal mg/dL (Normal) Urine Opiates Screen Neg (NEGATIVE) Urine Fentanyl Screen Neg (NEGATIVE) Urine Barbiturates Screen Neg (NEGATIVE) Urine Phencyclidine Screen Neg (NEGATIVE) Urine Amphetamines Screen Neg (NEGATIVE) Urine Benzodiazepines Screen Neg (NEGATIVE) Urine Cocaine Screen Neg (NEGATIVE) Urine Cannabinoids Screen Neg (NEGATIVE) Other Laboratory Tests 05/19/24 06:32 Brief Hx & Hospital Course: CRIS MILLER is a 68-year-old female with a PMH of CAD, HTN, dyslipidemia, CKD, dementia and seizure presented to the ED with the chief complaints of altered level of consciousness. Unable to obtain information, obtained from records which said the patient developed ALOC for approximately 7 hours and found with a blood sugar level of 58 ng/dL for which she was medicated with D10. Patient was diagnosed with septic shock and pneumonia which required hospital admission for further evaluation and management. Due to metabolic encephalopathy, CT showed no acute changes. Due to respiratory failure patient was intubated,on mechanically ventilation. Patient was on Levophed, dopamine, Versed, Diprivan. CT chest showed multifocal pneumonia with left lower lobe pneumonia and pleural effusion, patient was given vancomycin and Zosyn. Daily monitored with CXR and ABG. Ordered pancultures, urine culture showed Enterococcus faecalis, changed antibiotic to Unasyn and doxycycline. Due to heart failure property worker evaluated the patient and echo showed 50% with a grade 1 diastolic dysfunction. Continuously monitored renal function and electrolytes and replace as needed. Due to thrombocytopenia continuously monitored labs. Patient was extubated on 05/16, patient condition was improved, and in condition to be discharged home with optimal medical treatment. Patient was advised to follow up with PCP and to follow healthy lifestyle modifications. Pt is lying on bed, General Appearance: awake, oriented x3, HEENT: Atraumatic, Mucous membranes moist/pink Respiratory: Clear to auscultation, Normal air movement, Cardiovascular: Regular rate, Normal S1, Normal S2, No murmurs Abdominal: Active bowel sounds, Soft, no distension, no hepatosplenomegaly Extremities: Trace edema, no cyanosis, palpable pulses Skin: No Significant rash, except past surgical scars Neuro: No sensory motor deficits for now time spent in discharge planning was 41 mins Operations or Procedures EXAM: CT HEAD WITHOUT CONTRASt IMPRESSION: 1. No acute intracranial abnormality. CHEST RADIOGRAPH IMPRESSION: 1. Left upper lobe masslike opacity with left hilar prominence and atelectasis or pneumonia in the left lower lobe. CT thorax is suggested. CT CT CHEST/AB/PL W CON- IV ONLY IMPRESSION: 1. Multifocal pneumonia, with lobar pneumonia in the left lower lobe and lingula with moderate bilateral pleural effusions. 2. Probably simple cyst in the hepatic segment 8, follow-up is suggested. 3. Colonic diverticulosis. TECHNIQUE: Color and duplex doppler imaging of the bilateral upper extremity veins and subclavian vein was performed. Vessel compression if possible was also performed. IMPRESSION: NO SONOGRAPHIC EVIDENCE FOR DEEP VENOUS THROMBOSIS IN THE BILATERAL UPPER EXTREMITY VEINS. EXAM: XY CHEST XRAY 1 VIEW IMPRESSION: Diffuse interstitial opacities, similar in appearance compared to prior exam. Possible trace left pleural effusion. ECHO Conclusion lvef 50% by visual estimate grade 1 diastolic dysfunction normal rv function, mild enlargement left atrium moderate enlarged mild mitral regurg no severe valve abnormalities noted Condition at Discharge: Stable Final Diagnosis/Problems List # Acute hypoxic respiratory failure likely multifocal pneumonia/ lobar pneumonia/? MRSA # Acute Gram-positive /negative bacterial PNA / ?MRSA / ?Pseudomanal PNA # Septic shock likely due to above # Acute toxic and metabolic encephalopathy # Hypothermia induced bradycardia # ? acute on chronic diastolic heart failure # Hypomagnesemia # HX hypertension # Dyslipidemia, # Moderate pleural effusion # Atelectasis # MRSA nares positive # Acute complicated UTI # Hypomagnesemia-resolved # Thrombocytopenia # Ruled out DVT # History of seizure disorder # Dementia # Colonic diverticulosis Discharge Disposition: Home with Health Services (Physical therapy) Discharge Instruct/Medications Diet: See Comment Diet comment: Pureed diet and advance as tolerated Activity: No Restrictions, As Tolerated Follow Up/Referral: PCP Medications: PER EMR Discharge Statement: "Patient was advised to return to the ER or call 911 if any headaches, dizziness, shortness of breath, chest pain, abdominal pain, bleeding, fevers, or worsening of medical condition. Patient was counseled about treatment plan, medications, possible side effects, patientverbalized understanding. All questions were answered to the best of my ability. This discharge took greater then 30 minutes in planning, reviewing documentation, counseling the patient, and discussing with other team members." ASSESSMENT ASSESSMENT Assessment Multifocal PNA Date of Service: May 19, 2024 Billing Provider: DANIEL CERVANTES MD Common Visit Codes: 97371-MBB/OBS DISCH DAY >30min GABRIELA VERONICA May 19, 2024 18:19 DANIEL CERVANTES MD May 25, 2024 15:25
[2024-05-19] MEDS ORDERED: DEXTROSE (50%) 50ML SYRG IV SCH (22:00)
[2024-05-19] MEDS ORDERED: AMINO ACID INFUSION IN D10W 1,000 ML IV SCH (22:00)
[2024-05-20] VITALS (7 sets, daily range): BP systolic 124–168; BP diastolic 56–79; PULSE 66–80; RESP 17–20; TEMP 97.7–98.4; O2SAT 94–99
[2024-05-20] MEDS ORDERED: ACCU-CHEK COMFORT CURVE STRIP VI SCH
[2024-05-20] MEDS ORDERED: InsuLIN REG 1unit/0.01ml Soln (100units/ml) SC SCH
[2024-05-20 08:30] LABS: Alanine Aminotransferase 20 U/L (7-40); Albumin 3.3 g/dL (3.2-4.8); Anion Gap 7 (5-15); Aspartate Aminotransferase 19 U/L (13-40); BUN/Creatinine Ratio 15.6 (10.0-20.0); Bilirubin, Total 0.3 mg/dL (0.2-1.0); Blood Urea Nitrogen 12 mg/dL (9-23); Calcium 9.6 mg/dL (8.7-10.4); Carbon Dioxide 28 mmol/L (20-31); Chloride 104 mmol/L (98-107); Glucose 75 mg/dL (74-106); Phosphorus 3.2 mg/dL (2.4-5.1); Potassium 3.9 mmol/L (3.5-5.1); Sodium 139 mmol/L (136-145); Triglycerides 104 mg/dL (< 150)
[2024-05-20 08:31] LABS: Alkaline Phosphatase 128 U/L (46-116); Magnesium 1.5 mg/dL (1.6-2.6); Total Protein 5.3 g/dL (5.7-8.2)
[2024-05-20 11:01] LABS: Basophils # (auto) 0.1 10 ^3/uL (0-0.2); Eosinophils # (auto) 0.3 10 ^3/uL (0-0.8); Hemoglobin 7.7 g/dL (12.2-16.2); Lymphocytes # (auto) 1.8 10 ^3/uL (0.4-5.4); Platelet Count (auto) 388 10^3/uL (140-450)
[2024-05-20 11:04] LABS: Basophils % (auto) 1.1 % (0.0-2.0); Eosinophils % (auto) 5.2 % (0.0-7.0); Hematocrit 23.7 % (36.0-46.0); Lymphocytes % (auto) 31.3 % (10.0-50.0); Mean Corpuscular Hemoglobin 31.1 pg (28.0-32.0); Mean Corpuscular Hgb Conc. 32.6 g/dL (32.0-36.0); Mean Corpuscular Volume 95.3 fL (80.0-100.0); Monocytes # (auto) 0.4 10 ^3/uL (0-1.3); Monocytes % (auto) 7.6 % (0.0-12.0); Neutrophils # (auto) 3.2 10 ^3/uL (1.6-8.6); Neutrophils % (auto) 54.8 % (37.0-80.0); Nucleated Red Blood Cells % 0.1 %; Red Blood Cells 2.48 10^6/uL (4.0-5.20); Red Cell Distribution Width 15.5 % (11.8-14.3); White Blood Cell 5.8 10^3/uL (4.4-10.8)
[2024-05-20 11:24] LABS: Alanine Aminotransferase 22 U/L (7-40); Albumin 3.3 g/dL (3.2-4.8); Anion Gap 8 (5-15); Aspartate Aminotransferase 15 U/L (13-40); Blood Urea Nitrogen 12 mg/dL (9-23); Calcium 9.5 mg/dL (8.7-10.4); Carbon Dioxide 27 mmol/L (20-31); Chloride 103 mmol/L (98-107); Glucose 101 mg/dL (74-106); Potassium 3.7 mmol/L (3.5-5.1); Sodium 138 mmol/L (136-145)
[2024-05-20 11:25] LABS: Bilirubin, Total 0.3 mg/dL (0.2-1.0)
[2024-05-20 11:31] LABS: Alkaline Phosphatase 129 U/L (46-116); Total Protein 5.3 g/dL (5.7-8.2)
--- NOTE | 2024-05-20 17:39 | DVHPNRES ---
Progress Note Date Seen: May 20, 2024 Resident Creating Document: GABRIELA VERONICA RESIDENT Medical Necessity Reason Pt with a Central, PICC or Fol: Yes The following are medically ne: Villalba Catheter Reason for villalba catheter: Strict I&O Subjective Review of Systems CRIS MILLER is a 68-year-old female with a PMH of CAD, HTN, dyslipidemia, CKD, dementia and seizure presented to the ED with the chief complaints of altered level of consciousness. Patient seen and examined at the bedside. patient reported no new complaints, improvement since admission.Continuously monitoring, currently on 2 L oxygen NC. Planning to transfer to [place], stable to transfer , pending transfer. Patient reports: No new complaints, Feels better Objective vital signs Vital Sign Date Time Temp Pulse Resp B/P (MAP) Pulse Ox O2 Delivery O2 Flow Rate FiO2 05/20/24 17:10 97.7 76 18 143/73 (96) 94 97.7 05/20/24 08:00 Nasal Cannula* 2 28 Total Intake and Output 05/19/24 05/19/24 05/20/24 14:59 22:59 06:59 Intake Total 40 ml 500 ml Output Total 350 ml 350 ml Balance -310 ml 150 ml medications Current Medications Medications Dose Ordered Sig/Johan Route Start Time Stop Time Status Last Admin Dose Admin Pantoprazole Sodium 40 mg DAILY IV 05/13/24 10:00 05/20/24 09:17 40 MG Docusate Sodium 100 mg BID GT 05/13/24 10:00 05/20/24 09:18 100 MG Levetiracetam 500 mg BID NG 05/13/24 22:00 05/20/24 09:18 500 MG Lorazepam 1 mg Q5MINP PRN IV 05/14/24 08:45 05/19/24 13:41 1 MG Lorazepam 1 mg Q4HPRN PRN IV 05/14/24 16:30 05/15/24 12:04 1 MG Bisacodyl 10 mg QHSP PRN VA 05/16/24 14:45 Doxycycline Hyclate 100 ml @ 50 mls/hr Q12H IV 05/16/24 16:00 05/20/24 16:18 50 MLS/HR Hydralazine HCl 25 mg Q8HR PO 05/17/24 14:00 05/20/24 14:43 25 MG Metoprolol Tartrate 25 mg BID PO 05/17/24 22:00 05/20/24 09:18 25 MG Hydralazine HCl 10 mg Q6HP PRN IV 05/19/24 00:30 05/19/24 10:28 10 MG Examination Pt is lying on bed, General Appearance: Alert, oriented x3 HEENT: Atraumatic, Mucous membranes moist/pink Respiratory: Clear to auscultation, Normal air movement, mild crackles Cardiovascular: Regular rate, Normal S1, Normal S2, No murmurs Abdominal: Active bowel sounds, Soft, no distension, no hepatosplenomegaly Extremities: Trace edema, no cyanosis, palpable pulses Skin: No Significant rash, except past surgical scars Neuro: Altered, limited exam due to clinical status laboratory and microbiology Laboratory Tests 05/20/24 09:43 Test 05/20/24 09:43 Range/Units Serum Glucose 101 74-106 mg/dL Microbiology Date/Time Source Procedure Growth Status 05/12/24 00:00 Nose MRSA Screen - Final Methicillin Resistant S.aureus Complete 05/11/24 06:22 Sputum Expectorated Sputum Gram Stain - Final Complete 05/11/24 06:22 Sputum Expectorated Sputum Respiratory Culture - Final Complete 05/11/24 05:44 Blood Blood Culture - Final NO GROWTH AFTER 5 DAYS OF INCUBATION. Complete 05/11/24 05:26 Urine - Villalba [place] Urine Culture - Final Enterococcus faecalis Complete Labs and/or images reviewed: Labs reviewed by me, Image(s) reviewed by me Problem List/Assessment/Plan Problem List/Assessment/Plan NEUROLOGY # acute toxic and metabolic encephalopathy - CT showed no acute intracranial abnormalities # history of seizure disorder - seizure precautions # dementia - precautions to avoid delirium CARDIOVASCULAR # Septic shock likely due to pneumonia/??MRSA # Hypothermia induced bradycardia # ? acute on chronic diastolic heart failure # Hypomagnesemia # HX hypertension # Dyslipidemia, - monitor lab - echo showed LVEF 50% with grade 1 diastolic dysfunction - ordered pancultures, blood and respiratory cultures no growth - urine culture showing Enterococcus faecalis - vancomycin and Zosyn DC 05/16 - Changed antibiotics based on culture to Unasyn and doxycycline 05/16 - DC Unasyn 05/20 RESPIRATORY # Acute hypoxic respiratory failure likely multifocal pneumonia/ lobar pneumonia/? MRSA # Acute Gram-positive /negative bacterial PNA / ?MRSA / ?Pseudomanal PNA # septic shock # moderate pleural effusion # Atelectasis # MRSA nares positive - ordered pancultures, blood and respiratory cultures no growth - chest CT showed multifocal pneumonia with left lower lobe pneumonia, pleural effusion - urine culture showing Enterococcus faecalis - Changed antibiotics based on culture to Unasyn and doxycycline 05/16 - DC Unasyn 05/20 - extubated 05/16. GI/LIVER - PUD prophylaxis, Protonix /KIDNEY/METABOLIC # Acute complicated UTI - urine culture showing Enterococcus faecalis - vancomycin and Zosyn DC 05/16 - Changed antibiotics based on culture to Unasyn and doxycycline 05/16 # Hypomagnesemia-resolved - Monitor renal function - Monitor electrolytes. Supplement as necessary. - Monitor ins and outs. - Magnesium supplementation ENDO MSK HEME # thrombocytopenia - monitor lab - hold Lovenox # Ruleout DVT - Ordered scan, pending ID # Acute Gram-positive /negative bacterial PNA/ ?MRSA / ?Pseudomanal PNA # septic shock - ordered pancultures, blood and respiratory cultures no growth # Acute complicated UTI - urine culture showing Enterococcus faecalis - vancomycin and Zosyn DC 05/16 - Changed antibiotics based on culture to Unasyn and doxycycline 05/16 - DC Unasyn 05/20 SKIN LINES Right femoral vein catheter 0n 05/11 Villalba catheter DRIPS Levophed, dopamine, Versed, Diprivan off from all 05/14. NUTRITION Pureed diet Goals of care/advance care planning; FULL CODE; discussed on for 27 minutes. PUD prophylaxis: Pantoprazole DVT prophylaxis: HOLD Lovenox Critical care time including chart review, discussing with the patient's family(son Anthony) excluding procedures: 44 minutes Patient is status was updated to her son Anthony Case discussed with Dr. Carranza. Planning to transfer to [place], stable to transfer. Consulted social science manager. Plan discussed with: Patient, Son My Orders My Orders Orders - GABRIELA VERONICA RESIDENT Procedure Category Date Status Time Imaging Transfer ORDERS 05/20/24 Transmitted Request 15:30 Discharge DISCHARGE 05/20/24 Transmitted 17:25 Magnesium Raúl PHA 05/20/24 Transmitted 18:00 Complete Blood Count LAB 05/21/24 Verified 04:00 Basic Metabolic Panel LAB 05/21/24 Verified 04:00 Dietary Evaluation Review Comments: Increase Jevity to 50ml/hr,(67 gpro, 1440 kcal) adjust as rate tolerated. Expected Outcomes/Goals: improved protein nutrition, healed wounds, gradual weight loss Date of Service: May 20, 2024 Billing Provider: DANIEL CERVANTES MD Common Visit Codes: [id number] CARE 30-74 MIN GABRIELA VERONICA RESIDENT May 20, 2024 17:39 DANIEL CERVANTES MD May 21, 2024 16:47
[2024-05-20] MEDS: MAGNESIUM SULFATE 1GM/100ML 100 ML IV SCH (18:07)
[2024-05-21] VITALS (7 sets, daily range): BP systolic 126–165; BP diastolic 75–83; PULSE 70–83; RESP 17–20; TEMP 97.7–97.9; O2SAT 93–96
[2024-05-21 07:37] LABS: Basophils # (auto) 0.1 10 ^3/uL (0-0.2); Basophils % (auto) 1.3 % (0.0-2.0); Eosinophils # (auto) 0.2 10 ^3/uL (0-0.8); Eosinophils % (auto) 4.7 % (0.0-7.0); Hematocrit 24.4 % (36.0-46.0); Hemoglobin 8.3 g/dL (12.2-16.2); Lymphocytes # (auto) 1.7 10 ^3/uL (0.4-5.4); Lymphocytes % (auto) 33.6 % (10.0-50.0); Mean Corpuscular Hemoglobin 32.4 pg (28.0-32.0); Mean Corpuscular Hgb Conc. 34.2 g/dL (32.0-36.0); Mean Corpuscular Volume 94.7 fL (80.0-100.0); Monocytes # (auto) 0.5 10 ^3/uL (0-1.3); Monocytes % (auto) 8.9 % (0.0-12.0); Neutrophils # (auto) 2.7 10 ^3/uL (1.6-8.6); Neutrophils % (auto) 51.5 % (37.0-80.0); Nucleated Red Blood Cells % 0.1 %; Platelet Count (auto) 423 10^3/uL (140-450); Red Blood Cells 2.57 10^6/uL (4.0-5.20); Red Cell Distribution Width 15.7 % (11.8-14.3); White Blood Cell 5.2 10^3/uL (4.4-10.8)
[2024-05-21 07:38] LABS: Anion Gap 7 (5-15); Carbon Dioxide 29 mmol/L (20-31); Chloride 100 mmol/L (98-107); Potassium 3.7 mmol/L (3.5-5.1); Sodium 136 mmol/L (136-145)
[2024-05-21 07:40] LABS: Calcium 9.9 mg/dL (8.7-10.4)
[2024-05-21 07:44] LABS: BUN/Creatinine Ratio 12.9 (10.0-20.0); Blood Urea Nitrogen 9 mg/dL (9-23); Glucose 94 mg/dL (74-106)
[2024-05-21 09:45] LABS: Base Excess 3.4 mmol/L (-2.0-3.0)
[2024-05-21] MEDS ORDERED: ENALAPRILAT 1.25 MG/ML-1ML VIAL IV PRN (10:00)
[2024-05-21] MEDS: ENOXAPARIN SOD 40 MG/0.4 ML SYRINGE SC ONE (12:49)
--- NOTE | 2024-05-21 18:29 | DVHPNRES ---
Progress Note Date Seen: May 21, 2024 Resident Creating Document: GABRIELA VERONICA RESIDENT Medical Necessity Reason Pt with a Central, PICC or Fol: Yes The following are medically ne: Villalba Catheter Reason for villalba catheter: Strict I&O Subjective Review of Systems CRIS MILLER is a 68-year-old female with a PMH of CAD, HTN, dyslipidemia, CKD, dementia and seizure presented to the ED with the chief complaints of altered level of consciousness. Patient seen and examined at the bedside. patient reported no new complaints, improvement since admission.Continuously monitoring, currently on room air. Planning Dc home tommorrow. Patient reports: No new complaints, Feels better Objective vital signs Vital Sign Date Time Temp Pulse Resp B/P (MAP) Pulse Ox O2 Delivery O2 Flow Rate FiO2 05/21/24 16:33 97.8 79 19 145/78 (100) 94 97.8 05/21/24 08:00 Nasal Cannula* 1 24 Total Intake and Output 05/20/24 05/20/24 05/21/24 15:00 23:00 07:00 Intake Total 100 ml 660 ml 200 ml Output Total 550 ml 550 ml Balance 100 ml 110 ml -350 ml medications Current Medications Medications Dose Ordered Sig/Johan Route Start Time Stop Time Status Last Admin Dose Admin Docusate Sodium 100 mg BID GT 05/13/24 10:00 05/21/24 09:44 100 MG Levetiracetam 500 mg BID NG 05/13/24 22:00 05/21/24 09:44 500 MG Lorazepam 1 mg Q5MINP PRN IV 05/14/24 08:45 05/19/24 13:41 1 MG Bisacodyl 10 mg QHSP PRN [place] 05/16/24 14:45 Hydralazine HCl 25 mg Q8HR PO 05/17/24 14:00 05/21/24 13:25 25 MG Metoprolol Tartrate 25 mg BID PO 05/17/24 22:00 05/21/24 09:44 25 MG Enalaprilat 0.625 mg Q6HP PRN IV 05/21/24 10:00 Doxycycline Monohydrate 100 mg Q12HR PO 05/21/24 22:00 Pantoprazole Sodium 40 mg DAILY@0600 PO 05/22/24 06:00 Examination Pt is lying on bed General Appearance: Alert, Oriented X3, Cooperative, Not in acute distress HEENT: Atraumatic, Mucous membranes moist/pink Respiratory: Clear to auscultation, Normal air movement, No added sounds Cardiovascular: Regular rate, Normal S1, Normal S2, No murmurs Abdominal: Active bowel sounds, Soft, no distention, no tenderness Extremities: No edema, Normal pulses, No tenderness/swelling Skin: No Significant rash, except past surgical scars Neuro: Normal speech, sensorimotor deficits none Psych/Mental Status: Mental status NL, Mood NL Nurse was there as sharperone during examination laboratory and microbiology Laboratory Tests 05/21/24 06:52 Test 05/21/24 06:52 Range/Units Serum Glucose 94 74-106 mg/dL Microbiology Date/Time Source Procedure Growth Status 05/12/24 00:00 Nose MRSA Screen - Final Methicillin Resistant S.aureus Complete 05/11/24 06:22 Sputum Expectorated Sputum Gram Stain - Final Complete 05/11/24 06:22 Sputum Expectorated Sputum Respiratory Culture - Final Complete 05/11/24 05:44 Blood Blood Culture - Final NO GROWTH AFTER 5 DAYS OF INCUBATION. Complete 05/11/24 05:26 Urine - Villalba [place] Urine Culture - Final Enterococcus faecalis Complete Labs and/or images reviewed: Labs reviewed by me, Image(s) reviewed by me Problem List/Assessment/Plan Problem List/Assessment/Plan NEUROLOGY # acute toxic and metabolic encephalopathy- resolving - CT showed no acute intracranial abnormalities # history of seizure disorder - seizure precautions # dementia - precautions to avoid delirium CARDIOVASCULAR # Septic shock likely due to pneumonia/??MRSA -resolving # Hypothermia induced bradycardia- resolved # ? acute on chronic diastolic heart failure- improving # Hypomagnesemia- improved # HX hypertension # Dyslipidemia, - monitor lab - echo showed LVEF 50% with grade 1 diastolic dysfunction - ordered pancultures, blood and respiratory cultures no growth - urine culture showing Enterococcus faecalis - vancomycin and Zosyn DC 05/16 - Changed antibiotics based on culture to Unasyn and doxycycline 05/16 - DC Unasyn 05/20 RESPIRATORY # Acute hypoxic respiratory failure likely multifocal pneumonia/ lobar pneumonia/? MRSA # Acute Gram-positive /negative bacterial PNA / ?MRSA / ?Pseudomanal PNA # septic shock- improving # moderate pleural effusion # Atelectasis # MRSA nares positive - ordered pancultures, blood and respiratory cultures no growth - chest CT showed multifocal pneumonia with left lower lobe pneumonia, pleural effusion - urine culture showing Enterococcus faecalis - Changed antibiotics based on culture to Unasyn and doxycycline 05/16 - DC Unasyn 05/20 - extubated 05/16. GI/LIVER - PUD prophylaxis, Protonix /KIDNEY/METABOLIC # Acute complicated UTI- improving - urine culture showing Enterococcus faecalis - vancomycin and Zosyn DC 05/16 - Changed antibiotics based on culture to Unasyn and doxycycline 05/16 -,Dc unasyn # Hypomagnesemia-resolved - Monitor renal function - Monitor electrolytes. Supplement as necessary. - Monitor ins and outs. - Magnesium supplementation ENDO MSK HEME # thrombocytopenia - monitor lab - Lovenox # Ruleout DVT - Ordered scan, negative ID # Acute Gram-positive /negative bacterial PNA/ ?MRSA / ?Pseudomanal PNA # septic shock - ordered pancultures, blood and respiratory cultures no growth # Acute complicated UTI - urine culture showing Enterococcus faecalis - vancomycin and Zosyn DC 05/16 - Changed antibiotics based on culture to Unasyn and doxycycline 05/16 - DC Unasyn 05/20 SKIN LINES Right femoral vein catheter Dc 05/21 Villalba catheter DRIPS Levophed, dopamine, Versed, Diprivan off from all 05/14. NUTRITION Pureed diet Goals of care/advance care planning; FULL CODE; discussed on for 27 minutes. PUD prophylaxis: Pantoprazole DVT prophylaxis: Lovenox Patient is status was updated to her son Anthony Case discussed with Dr. Carranza. Plan discussed with: Patient, Son My Orders My Orders Orders - GABRIELA VERONICA Procedure Category Date Status Time Communication Order ORDERS 05/21/24 Transmitted 08:29 Dietary Evaluation Review Comments: Increase Jevity to 50ml/hr,(67 gpro, 1440 kcal) adjust as rate tolerated. Expected Outcomes/Goals: improved protein nutrition, healed wounds, gradual weight loss Date of Service: May 21, 2024 Billing Provider: DANIEL CERVANTES MD Common Visit Codes: [id number] INP/OBS CARE(HIGH) Secondary Visit Codes: [id number] CARE PLAN 30 MINUTES GABRIELA VERONICA May 21, 2024 18:29 DANIEL CERVANTES MD May 22, 2024 13:10
[2024-05-21] MEDS: DOXYCYCLINE 100 MG TAB/CAP PO SCH (21:11)
[2024-05-22 01:00] VITALS: BP 163/88; PULSE 77; RESP 20; TEMP 97.9; O2SAT 92
[2024-05-22 04:59] VITALS: BP_SYST 177; BP_SYST 193; BP_DIAS 89; BP_DIAS 98; PULSE 82; PULSE 86; RESP 20; TEMP 97.9; O2SAT 90
[2024-05-22] MEDS: PANTOPRAZOLE 40 MG TAB PO SCH (05:54)
[2024-05-22 08:10] VITALS: PULSE 86; RESP 18; O2SAT 92
[2024-05-22] MEDS ORDERED: DOX100T PO (08:21)
[2024-05-22 08:42] VITALS: BP 169/79; PULSE 87; RESP 16; TEMP 98.2; O2SAT 91
[2024-05-22] MEDS ORDERED: ENOXAPARIN SOD 40 MG/0.4 ML SYRINGE SC SCH (10:00)
--- NOTE | 2024-05-22 10:34 | DVHPNRES ---
Progress Note Date Seen: May 22, 2024 Resident Creating Document: GABRIELA VERONICA RESIDENT Medical Necessity Reason Pt with a Central, PICC or Fol: Yes The following are medically ne: Villalba Catheter Reason for villalba catheter: Strict I&O Subjective Review of Systems CRIS MILLER is a 68-year-old female with a PMH of CAD, HTN, dyslipidemia, CKD, dementia and seizure presented to the ED with the chief complaints of altered level of consciousness. Patient seen and examined at the bedside. patient reported no new complaints, improvement since admission.Continuously monitoring, currently on room air. Possible Dc to home with health services for physical therapy in next 24 hours. Patient reports: No new complaints, Feels better Objective vital signs Vital Sign Date Time Temp Pulse Resp B/P (MAP) Pulse Ox O2 Delivery O2 Flow Rate FiO2 05/22/24 09:27 85 165/78 05/22/24 08:42 98.2 16 91 98.2 05/22/24 08:10 Nasal Cannula* 2 28 Total Intake and Output 05/21/24 05/21/24 05/22/24 15:00 23:00 07:00 Intake Total 100 ml 480 ml 350 ml Output Total 500 ml 600 ml Balance 100 ml -20 ml -250 ml medications Current Medications Medications Dose Ordered Sig/Johan Route Start Time Stop Time Status Last Admin Dose Admin Docusate Sodium 100 mg BID GT 05/13/24 10:00 05/22/24 09:26 100 MG Levetiracetam 500 mg BID NG 05/13/24 22:00 05/22/24 09:27 500 MG Lorazepam 1 mg Q5MINP PRN IV 05/14/24 08:45 05/19/24 13:41 1 MG Bisacodyl 10 mg QHSP PRN VA 05/16/24 14:45 Hydralazine HCl 25 mg Q8HR PO 05/17/24 14:00 05/22/24 05:54 25 MG Metoprolol Tartrate 25 mg BID PO 05/17/24 22:00 05/22/24 09:27 25 MG Enalaprilat 0.625 mg Q6HP PRN IV 05/21/24 10:00 Doxycycline Monohydrate 100 mg Q12HR PO 05/21/24 22:00 05/22/24 09:27 100 MG Pantoprazole Sodium 40 mg DAILY@0600 PO 05/22/24 06:00 05/22/24 05:54 40 MG Examination Pt is lying on bed General Appearance: Alert, Oriented X3, Cooperative, Not in acute distress HEENT: Atraumatic, Mucous membranes moist/pink Respiratory: Clear to auscultation, Normal air movement, No added sounds Cardiovascular: Regular rate, Normal S1, Normal S2, No murmurs Abdominal: Active bowel sounds, Soft, no distention, no tenderness Extremities: No edema, Normal pulses, No tenderness/swelling Skin: No Significant rash, except past surgical scars Neuro: Normal speech, sensorimotor deficits none Psych/Mental Status: Mental status NL, Mood NL Nurse was there as sharperone during examination laboratory and microbiology Laboratory Tests 05/21/24 06:52 Test 05/21/24 06:52 Range/Units Serum Glucose 94 74-106 mg/dL Microbiology Date/Time Source Procedure Growth Status 05/12/24 00:00 Nose MRSA Screen - Final Methicillin Resistant S.aureus Complete 05/11/24 06:22 Sputum Expectorated Sputum Gram Stain - Final Complete 05/11/24 06:22 Sputum Expectorated Sputum Respiratory Culture - Final Complete 05/11/24 05:44 Blood Blood Culture - Final NO GROWTH AFTER 5 DAYS OF INCUBATION. Complete 05/11/24 05:26 Urine - Villalba Port Urine Culture - Final Enterococcus faecalis Complete Labs and/or images reviewed: Labs reviewed by me, Image(s) reviewed by me Problem List/Assessment/Plan Problem List/Assessment/Plan NEUROLOGY # acute toxic and metabolic encephalopathy- resolving - CT showed no acute intracranial abnormalities # history of seizure disorder - seizure precautions # dementia - precautions to avoid delirium CARDIOVASCULAR # Septic shock likely due to pneumonia/??MRSA -resolving # Hypothermia induced bradycardia- resolved # ? acute on chronic diastolic heart failure- improving # Hypomagnesemia- improved # HX hypertension # Dyslipidemia, - monitor lab - echo showed LVEF 50% with grade 1 diastolic dysfunction - ordered pancultures, blood and respiratory cultures no growth - urine culture showing Enterococcus faecalis - vancomycin and Zosyn DC 05/16 - Changed antibiotics based on culture to Unasyn and doxycycline 05/16 - DC Unasyn 05/20 RESPIRATORY # Acute hypoxic respiratory failure likely multifocal pneumonia/ lobar pneumonia/? MRSA # Acute Gram-positive /negative bacterial PNA / ?MRSA / ?Pseudomanal PNA # septic shock- improving # moderate pleural effusion # Atelectasis # MRSA nares positive - ordered pancultures, blood and respiratory cultures no growth - chest CT showed multifocal pneumonia with left lower lobe pneumonia, pleural effusion - urine culture showing Enterococcus faecalis - Changed antibiotics based on culture to Unasyn and doxycycline 05/16 - DC Unasyn 05/20 - extubated 05/16. GI/LIVER - PUD prophylaxis, Protonix /KIDNEY/METABOLIC # Acute complicated UTI- improving - urine culture showing Enterococcus faecalis - vancomycin and Zosyn DC 05/16 - Changed antibiotics based on culture to Unasyn and doxycycline 05/16 -,Dc unasyn # Hypomagnesemia-resolved - Monitor renal function - Monitor electrolytes. Supplement as necessary. - Monitor ins and outs. - Magnesium supplementation ENDO MSK HEME # thrombocytopenia - monitor lab - Lovenox # Ruleout DVT - Ordered scan, negative ID # Acute Gram-positive /negative bacterial PNA/ ?MRSA / ?Pseudomanal PNA # septic shock - ordered pancultures, blood and respiratory cultures no growth # Acute complicated UTI - urine culture showing Enterococcus faecalis - vancomycin and Zosyn DC 05/16 - Changed antibiotics based on culture to Unasyn and doxycycline 05/16 - DC Unasyn 05/20 SKIN LINES Right femoral vein catheter Dc 05/21 Villalba catheter DRIPS Levophed, dopamine, Versed, Diprivan off from all 05/14. NUTRITION Pureed diet Goals of care/advance care planning; FULL CODE; discussed on for 27 minutes. PUD prophylaxis: Pantoprazole DVT prophylaxis: Lovenox Patient is status was updated to her son Anthony Case discussed with Dr. Carranza. Possible DC in next 24 hours to home with health services for physical therapy. Plan discussed with: Patient, Son My Orders My Orders Orders - GABRIELA VERONICA RESIDENT Procedure Category Date Status Time Discharge DISCHARGE 05/22/24 Transmitted 10:32 Dietary Evaluation Review Comments: Increase Jevity to 50ml/hr,(67 gpro, 1440 kcal) adjust as rate tolerated. Expected Outcomes/Goals: improved protein nutrition, healed wounds, gradual weight loss Date of Service: May 22, 2024 Billing Provider: DANIEL CERVANTES MD Common Visit Codes: [id number] INP/OBS CARE(HIGH) Secondary Visit Codes: [id number] CARE PLAN 30 MINUTES GABRIELA VERONICA RESIDENT May 22, 2024 10:34 DANIEL CERVANTES MD May 25, 2024 15:36
[2024-05-22 12:40] VITALS: BP 101/47; PULSE 54; RESP 16; TEMP 97.5; O2SAT 93
[2024-05-22 13:00] VITALS: BP 101/47; PULSE 54; RESP 16; TEMP 97.5; O2SAT 96
== END 2024-05-22 16:30 | disposition home health service (06) | DRG 870 ==
LOC: EDBD 04:34 → ER 04:34 → OVERFLOW 12:40 → TELE 05-12 00:39 → ICU WEST 05-12 05:29 → WEST WING 05-17 23:52 → ICU WEST 05-18 00:14 → WEST WING 05-18 00:54
PROVIDERS: ADMIT Internal Medicine; ATTEND Internal Medicine
PROC: 5A1955Z Respiratory Ventilation, Greater than 96 Consecutive Hours (ICD-10-PCS; principal; 2024-05-11)
PROC: 06HM33Z Insertion of Infusion Device into Right Femoral Vein, Percutaneous Approach (ICD-10-PCS; 2024-05-11)
PROC: 0BH17EZ Insertion of Endotracheal Airway into Trachea, Via Natural or Artificial Opening (ICD-10-PCS; 2024-05-11)
DX: A41.02 Sepsis due to Methicillin resistant Staphylococcus aureus (principal); J96.01 Acute respiratory failure with hypoxia; R65.21 Severe sepsis with septic shock; J15.212 Pneumonia due to Methicillin resistant Staphylococcus aureus; I50.33 Acute on chronic diastolic (congestive) heart failure; N17.0 Acute kidney failure with tubular necrosis; G92.8 Other toxic encephalopathy; J18.1 Lobar pneumonia, unspecified organism; J15.9 Unspecified bacterial pneumonia; J15.69 Pneumonia due to other Gram-negative bacteria; J90 Pleural effusion, not elsewhere classified; J98.11 Atelectasis; N39.0 Urinary tract infection, site not specified; I13.0 Hypertensive heart and chronic kidney disease with heart failure and stage 1 through stage 4 chronic kidney disease, or unspecified chronic kidney disease; D69.6 Thrombocytopenia, unspecified; E78.5 Hyperlipidemia, unspecified; E83.42 Hypomagnesemia; F03.90 Unspecified dementia, unspecified severity, without behavioral disturbance, psychotic disturbance, mood disturbance, and anxiety; I25.10 Atherosclerotic heart disease of native coronary artery without angina pectoris; N18.9 Chronic kidney disease, unspecified; D64.9 Anemia, unspecified; G40.909 Epilepsy, unspecified, not intractable, without status epilepticus; K57.30 Diverticulosis of large intestine without perforation or abscess without bleeding; I25.2 Old myocardial infarction; Z79.899 Other long term (current) drug therapy
CPT/HCPCS: 31500; 36415; 36556; 36600; 70450; 71045; 71260; 74177; 80048; 80053; 80061; 80202; 80307; 80320; 81001; 82533; 82607; 82805; 82962; 83036; 83605; 83690; 83735; 83880; 84100; 84443; 84478; 84484; 85025; 85610; 85730; 87040; 87070; 87081; 87086; 87088; 87186; 87205; 87426; 87804; 92610; 93005; 93306; 93970; 94002; 94003; 94640; 97110; 97116; 97163; 97530; 99291; G0378; J0692; J2470; J2543; J2704; J3480; J7060

== ENCOUNTER 2024-06-19 22:42 | Emergency (ER) | payer OTHER ==
[~2024-06-19] VITALS: Ht 170.2 cm; Wt 70.4 kg
[~2024-06-19 22:42] MED LIST: ATOR20TA PO; BUSP10TA90 PO; DOX100T PO; FOLI-119 PO; HYDR25TA88 PO; LEVE500T40 PO; METO25TA5 PO; MULT-1018 PO; THIA100T10 PO; TRAZ-227 PO
[2024-06-19 23:00] VITALS: PULSE 47; RESP 10; O2SAT 98
[2024-06-19] MEDS: SODIUM CHLORIDE 0.9% 1,000 ML IVB ONE (23:08)
[2024-06-19 23:32] LABS: Basophils # (auto) 0 10 ^3/uL (0-0.2); Basophils % (auto) 0.4 % (0.0-2.0); Eosinophils # (auto) 0.1 10 ^3/uL (0-0.8); Eosinophils % (auto) 2.1 % (0.0-7.0); Hematocrit 33.4 % (36.0-46.0); Hemoglobin 10.9 g/dL (12.2-16.2); Lymphocytes # (auto) 1.1 10 ^3/uL (0.4-5.4); Lymphocytes % (auto) 33.8 % (10.0-50.0); Mean Corpuscular Hemoglobin 31.8 pg (28.0-32.0); Mean Corpuscular Hgb Conc. 32.7 g/dL (32.0-36.0); Mean Corpuscular Volume 97.1 fL (80.0-100.0); Monocytes # (auto) 0.2 10 ^3/uL (0-1.3); Monocytes % (auto) 4.7 % (0.0-12.0); Neutrophils # (auto) 1.9 10 ^3/uL (1.6-8.6); Nucleated Red Blood Cells % 0.1 %; Platelet Count (auto) 85 10^3/uL (140-450); Red Blood Cells 3.44 10^6/uL (4.0-5.20); Red Cell Distribution Width 16.7 % (11.8-14.3); White Blood Cell 3.3 10^3/uL (4.4-10.8)
[2024-06-19 23:41] LABS: Albumin 4.2 g/dL (3.2-4.8); Anion Gap 9 (5-15); BUN/Creatinine Ratio 28.6 (10.0-20.0); Bilirubin, Total 0.3 mg/dL (0.2-1.0); Blood Urea Nitrogen 18 mg/dL (9-23); Carbon Dioxide 27 mmol/L (20-31); Chloride 101 mmol/L (98-107); Glucose 95 mg/dL (74-106); Potassium 4.4 mmol/L (3.5-5.1); Sodium 137 mmol/L (136-145); Total Protein 6.7 g/dL (5.7-8.2)
[2024-06-19 23:43] LABS: Alanine Aminotransferase 156 U/L (7-40); Alkaline Phosphatase 155 U/L (46-116); Aspartate Aminotransferase 140 U/L (13-40); Magnesium 1.5 mg/dL (1.6-2.6)
[2024-06-19] MEDS: cloNIDine HCL 0.1 MG TAB PO ONE (23:43)
--- NOTE | 2024-06-19 23:47 | ED.PDOC ---
History of Present Illness HPI Comments 69-year-old female via EMS for high blood pressure. Patient has history of hypertension and hyponatremia. Was noted for the past few hours, the patient has been generally weak, jittery, clammy, with abdominal pain nausea and vomiting, noted also slurring of speech. Patient states she has these symptoms whenever her sodium levels were low. 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 Engineering Technician Notes Allergies: Coded Allergies: Amlodipine (Verified Allergy, Severe, SEVERE EDEMA, 05/14/24) PER [place] [employer] Penicillins (Verified Allergy, Unknown, 06/19/24) Home Meds Active Scripts Doxycycline Monohydrate (Doxycycline Monohydrate) 100 Mg Tab, 100 MG PO Q12HR for 5 Days, #10 TAB Prov:BRIDGETTENANCYBERNICEVERONIKA RESIDENT 05/22/24 Reported Medications Atorvastatin Calcium (Lipitor) 20 Mg Tab, 1 TAB PO DAILY, #90 TAB 1 Refill 05/14/24 Multiple Vitamin (Multivitamins) Tab, 1 TAB PO DAILY, #90 TAB 3 Refills 05/14/24 Folic Acid (Folic Acid) 1 Mg Tab, 1 MG PO DAILY for 30 Days, MG 05/14/24 Thiamine Hcl (VITAMIN B-1) 100 Mg Tb, 100 MG PO DAILY, TAB 05/14/24 Levetiracetam (Keppra) 500 Mg Tab, 500 MG PO BID for 30 Days, MG 05/14/24 Buspirone Hcl (Buspirone Hcl) 10 Mg Tab, 10 MG PO TIDPRN PRN for ANXIETY for 30 Days, MG 05/14/24 Hydralazine Hcl (Hydralazine Hcl) 25 Mg Tab, 25 MG PO BIDP PRN for SBP>160 for 30 Days, MG 05/14/24 Metoprolol Tartrate (Metoprolol Tartrate) 25 Mg Tab, 25 MG PO BID for 30 Days, MG 05/14/24 Trazodone Hcl (Trazodone Hcl) 50 Mg Tab, 50 MG PO HS, MG 05/14/24 Information Source: Patient, Emergency Med Personnel Mode of Arrival: EMS Severity: Moderate Timing: Hours Duration: Since onset Prehospital treatment: None Past Medical History PAST MEDICAL HISTORY: High Lipids, HTN, [place], Seizures Past Medical History (Other): Hyponatremia Surgical History: Denies all surgeries TICKET CLERK History: Denies all TICKET CLERK Hx Family History Family History: Reviewed,noncontributory to illness Social History Smoker: Non-Smoker, Pt Confused Alcohol: Denies ETOH Use Drugs: Denies Drug Use Lives In: Home Constitutional: denies: chills, diaphoresis, fatigue, fever, malaise, sweats, weakness, others EENTM: denies: blurred vision, double vision, ear bleeding, ear discharge, ear drainage, ear pain, ear ringing, eye pain, eye redness, hearing loss, mouth pain, mouth swelling, nasal discharge, nose bleeding, nose congestion, nose pain, photophobia, tearing, throat pain, throat swelling, voice changes, others Respiratory: denies: cough, hemoptysis, orthopnea, SOB at rest, shortness of breath, SOB with excertion, stridor, wheezing, others Cardiovascular: denies: chest pain, dizzy spells, diaphoresis, Dyspnea on ex ertion, edema, irregular heart beat, left arm pain, lightheadedness, palpitations, PND, syncope, others Gastrointestinal: reports: nausea, vomiting; denies: abdomen distended, abdominal pain, blood streaked bowels, constipated, diarrhea, dysphagia, difficulty swallowing, hematemesis, melena, poor appetite, poor fluid intake, rectal bleeding, rectal pain, others Genitourinary: denies: abnormal vagina bleeding, burning, dyspareunia, dysuria, flank pain, frequency, hematuria, incontinence, pain, , vagina discharge, urgency, others Neurological: reports: dizziness, speech problems, tingling, weakness; denies: fainting, headache, left sided numbness, left sided weakness, numbness, paresthesia, pre-existing deficit, right sided numbness, right sided weakness, seizure, tremors, others Musculoskeletal: denies: back pain, gout, joint pain, joint swelling, muscle pain, muscle stiffness, neck pain, others Integumetry: denies: bruises, change in color, change in hair/nails, dryness, laceration, lesions, lumps, rash, wounds, others Allergic/Immunocompromised: denies: Difficulty Healing, Frequent Infections, Hives, Itching, others Hematologic/Lymphatic: denies: anemia, blood clots, easy bleeding, easy bruising, swollen glands, others Endocrine: denies: excessive hunger, excessive sweating, excessive thirst, excessive urination, flushing, intolerance to cold, intolerance to heat, unexplained weight gain, unexplained weight loss, others Psychiatric: denies: anxiety, bipolar disorder, depression, hopeless, panic disorder, schizophrenia, sleepless, suicidal, others Physical Exam General Appearance: No Apparent Distress, Normal HEENT: Normal ENT Inspection, Pharynx Normal, TMs Normal Neck: Full Range of Motion, Non-Tender, Normal, Normal Inspection Respiratory: Chest Non-Tender, Lungs Clear, No Accessory Muscle Use, No Respiratory Distress, Normal Breath Sounds Cardiovascular: No Edema, No JVD, No Murmur, No Gallop, Normal Peripheral Pulses, Regular Rate/Rhythm Breast Exam: Deferred Gastrointestinal: No Organomegaly, Non Tender, No Pulsatile Mass, Normal Bowel Sounds, Soft Genitalia: Deferred Pelvic: Deferred Rectal: Deferred Extremities: No calf tenderness, Normal capillary refill, Normal inspection, Normal range of motion, Non-tender, No pedal edema Musculoskeletal : Apperance: Normal Neurologic: Alert, road roller engineer II-XII nml as Tested, No Motor Deficits, Normal Affect, Normal Mood, No Sensory Deficits Cerebellar Function: Normal Reflexes: Normal Skin: Dry, Normal Color, Warm Lymphatic: No Adenopathy Was a procedure done? Was a procedure done?: No Differential Dx Considerations may include: Anemia, electrolyte imbalance, weakness, hypertensive urgency, bradycardia X-Ray, Labs, Meds, VS Vital Signs Date Time Temp Pulse Resp B/P (MAP) Pulse Ox O2 Delivery O2 Flow Rate FiO2 06/19/24 23:43 204/103 06/19/24 23:00 47 10 98 Room Air* 0 21 06/19/24 23:00 47 10 196/91 (126) 98 06/19/24 23:00 47 10 98 Room Air* 0 21 06/19/24 22:55 97.5 48 18 224/108 (146) 98 06/19/24 22:53 49 Lab Test 06/19/24 23:10 Range/Units White Blood Count 3.3 L 4.4-10.8 10^3/uL Red Blood Count 3.44 L 4.0-5.20 10^6/uL Hemoglobin 10.9 L 12.2-16.2 g/dL Hematocrit 33.4 L 36.0-46.0 % Mean Corpuscular Volume 97.1 80.0-100.0 fL Mean Corpuscular Hemoglobin 31.8 28.0-32.0 pg Mean Corpuscular Hemoglobin Concent 32.7 32.0-36.0 g/dL Red Cell Distribution Width 16.7 H 11.8-14.3 % Platelet Count 85 L 140-450 10^3/uL Mean Platelet Volume 9.5 6.9-10.8 fL Neutrophils (%) (Auto) 59.0 37.0-80.0 % Lymphocytes (%) (Auto) 33.8 10.0-50.0 % Monocytes (%) (Auto) 4.7 0.0-12.0 % Eosinophils (%) (Auto) 2.1 0.0-7.0 % Basophils (%) (Auto) 0.4 0.0-2.0 % Neutrophils # (Auto) 1.9 1.6-8.6 10 ^3/uL Lymphocytes # (Auto) 1.1 0.4-5.4 10 ^3/uL Monocytes # (Auto) 0.2 0-1.3 10 ^3/uL Eosinophils # (Auto) 0.1 0-0.8 10 ^3/uL Basophils # (Auto) 0 0-0.2 10 ^3/uL Nucleated Red Blood Cells 0.1 % Sodium Level 137 136-145 mmol/L Potassium Level 4.4 3.5-5.1 mmol/L Chloride Level 101 98-107 mmol/L Carbon Dioxide Level 27 20-31 mmol/L Anion Gap 9 5-15 Blood Urea Nitrogen 18 9-23 mg/dL Creatinine 0.63 0.550-1.02 mg/dL Glomerular Filtration Rate Calc 97 >90 mL/min BUN/Creatinine Ratio 28.6 H 10.0-20.0 Serum Glucose 95 74-106 mg/dL Serum Osmolality 287 278-298 mOsm/kg Calcium Level 11.0 H 8.7-10.4 mg/dL Magnesium Level 1.5 L 1.6-2.6 mg/dL Total Bilirubin 0.3 0.2-1.0 mg/dL Aspartate Amino Transferase (AST) 140 H 13-40 U/L Alanine Aminotransferase (ALT) 156 H 7-40 U/L Alkaline Phosphatase 155 H 46-116 U/L Total Protein 6.7 5.7-8.2 g/dL Albumin 4.2 3.2-4.8 g/dL Current Medications Medications (Trade) Dose Ordered Sig/Johan Route Start Time Stop Time Status Last Admin Sodium Chloride 1,000 ml @ 1,000 mls/hr Q1H ONCE IVB 06/19/24 23:00 06/19/24 23:59 DC 06/19/24 23:08 Clonidine HCl (Catapres Tablet) 0.2 mg ONCE ONCE PO 06/19/24 23:45 06/19/24 23:46 DC 06/19/24 23:43 Magnesium Sulfate/ Dextrose 100 ml @ 100 mls/hr Q1H IV 06/20/24 00:30 06/20/24 02:29 06/20/24 00:37 Time of 1ST Reevaluation: 23:42 Reevaluation 1ST: Unchanged Time of 2ND Reevaluation: 00:48 Reevaluation 2ND: Unchanged Patient Education/Counseling: Diagnosis, Treatment Family Education/Counseling: No Family Present Departure 1 Departure Time of Disposition: 00:48 Impression: Primary Impression: Metabolic encephalopathy Disposition: ADMITTED INPATIENT Admit to: Med Surg Condition: Guarded Discharged With: Self Comments Generalized Weakness with Hypomagnesemia Chief Complaint: Generalized weakness and slurred speech History of Present Illness: 69-year-old female presents via EMS from home with a 2-day history of severe generalized weakness and slurred speech. Patient reports a history of previous episodes of electrolyte abnormalities, specifically low sodium, and states current symptoms are similar to those previous episodes. She was found to be significantly hypertensive on presentation with elevated blood pressure of 224/108 mmHg. Review of Systems: Constitutional: Positive for generalized weakness Neurological: Positive for slurred speech All other systems reviewed and negative Vital Signs: Blood Pressure: 224/108 mmHg initially, improved after treatment Lab Results: Sodium: 137 mEq/L (normal) Magnesium: 1.5 mg/dL (low) Imaging and Other Relevant Results: No imaging studies documented in current encounter Medical Decision Making: Summary Statement: 69-year-old female presenting with generalized weakness, slurred speech, hypertensive emergency, and hypomagnesemia requiring urgent medical attention and transfer to higher level of care. Problem List: 1. Severe hypertension 2. Hypomagnesemia 3. Generalized weakness 4. Slurred speech Differential Diagnosis: 1. Hypertensive emergency 2. Electrolyte imbalance 3. Transient ischemic attack 4. Stroke 5. Metabolic encephalopathy ED Course: Patient received IV magnesium supplementation and oral clonidine 0.2mg for blood pressure control with improvement. Transfer arranged to [facility], . Assessment and Plan: 1. Hypomagnesemia: - Administered IV magnesium supplementation - Will require continued electrolyte monitoring and replacement 2. Hypertensive Emergency: - Successfully treated with oral clonidine 0.2mg with improvement in blood pressure - Requires continued close monitoring and medication adjustment 3. Disposition: - Transfer arranged to [facility] for continued care - - Care coordinated with Dr. Angel at receiving facility Billing Information: ICD-10: E83.42 - Hypomagnesemia ICD-10: I16.9 - Hypertensive crisis, unspecified ICD-10: R53.1 - Weakness ICD-10: R47.81 - Slurred speech Critical Care Note Critical Care Time?: Yes (35 min-critical care time only) Critical care comment: Hypertensive urgency Total critical care time: Approximately 36 minutes Due to a high probability of clinically significant, life threatening d eterioration, the patient required my highest level of preparedness to intervene emergently and I personally spent this critical care time directly and personally managing the patient. This critical care time included obtaining a history; examining the patient; pulse oximetry; ordering and review of studies; arranging urgent treatment with development of a management plan; evaluation of patient's response to treatment; frequent reassessment; and, discussions with other providers. This critical care time was performed to assess and manage the high probability of imminent, life-threatening deterioration that could result in multi-organ failure. It was exclusive of separately billable procedures and treating other patients. Stability Stability form required: No Heart Score Heart Score: Heart Score Response (Comments) Value History Moderate Suspicious 1 EKG Repolarization Disturb 1 Age >65 2 Risk Factors >3 or Hx ASHD 2 Troponin Normal limit 0 Total 6 I personally scribed for JANINA VALDEZ MD ([email or web address]) on 06/19/24 at 23:47. Kaelyn ctronically submitted by Blaze Moya ([facility]). JANINA VALDEZ MD Jun 19, 2024 23:47
[2024-06-20] MEDS: MAGNESIUM SULFATE 1GM/100ML 100 ML IV SCH (00:37)
[2024-06-20 01:04] LABS: Urine Bacteria None Seen /hpf (None Seen)
[2024-06-20 01:35] LABS: Urine Blood Negative /uL (Negative); Urine Clarity Clear (Clear); Urine Color Colorless (Yellow); Urine Protein, UAD Negative (Negative); Urine Squamous Epithelial Cell FEW /hpf (<5); Urine Urobilinogen Normal (Negative); Urine WBC < 1 /HPF (0-5)
--- NOTE | 2024-06-20 02:10 | DVH ---
EXAM: CT HEAD WITHOUT CONTRAST INDICATION: slurred speech TECHNIQUE: CT of the head without intravenous contrast. Radiation Dose : 1. Head: CT Dose: CTDI volume is 52.4 mGy. Dose-length product is 927 mGy*cm The dose indicators for CT are the volume Computed Tomography (CT) Dose Index (CTDIvol) and the Dose Length Product (DLP), and are measured in units of mGy and mGy-cm, respectively. These indicators are not patient dose, but values generated from the CT scanner acquisition factors. The report includes radiation exposure data for exposures received during this examination. COMPARISON: CT HEAD WITHOUT CONTRAST on DOS: 05/11/24 FINDINGS: There is no evidence of acute intracranial hemorrhage, extra-axial collection, mass effect, midline s hift, herniation or hydrocephalus. The ventricles, sulci and cisterns are age appropriate. The caballero-white differentiation is intact. The visualized paranasal sinuses and mastoid air cells are clear. The surrounding soft tissues and osseous structures are unremarkable. IMPRESSION: 1. No acute intracranial abnormality. Radiation optimization: All CT scans at this facility use at least one of these dose optimization jeffrey hniques: automated exposure control mA and/or kV adjustment per patient size (includes targeted exam s where dose is matched to clinical indication) or iterative reconstruction.
[2024-06-20 04:24] VITALS: BP 136/74; PULSE 40; RESP 10; TEMP 97.4; O2SAT 95
--- NOTE | 2024-06-20 06:57 | ECG ---
[facility] Test Date: 2024-06-19 Test Time: 22:53:48 Pat Name: CRIS MILLER Department: er Room: Gender: F Vegetable Inspector: : [id number] Requested By: JANINA VALDEZ Order Number: [id number] Reading MD: Pedro Morgan Measurements Intervals [place] Rate: 49 P: 51 VT: 205 QRS: 41 QRSD: 110 T: 59 QT: 525 QTc: 475 Interpretive Statements Sinus bradycardia Probable left ventricular hypertrophy Minimal ST elevation, inferior leads Electronically Signed On 06-21-2024 17:49:20 PST by Pedro Morgan Please click the below link to view image of tracing.
== END 2024-06-20 00:22 | disposition short-term general hospital (02) ==
LOC: EDBD 22:42 → ER 22:42
DX: G93.41 Metabolic encephalopathy (principal); E83.42 Hypomagnesemia; I16.1 Hypertensive emergency; I10 Essential (primary) hypertension; Z79.899 Other long term (current) drug therapy; Z88.0 Allergy status to penicillin; Z88.8 Allergy status to other drugs, medicaments and biological substances
CPT/HCPCS: 36415; 70450; 80053; 81001; 83735; 83930; 83935; 85025; 93005; 96361; 96365; 96366; 99285; J3475; J7030